=== PATIENT | male | born 1945 | race Caucasian/White ===

== ENCOUNTER 2018-10-21 16:54 | Inpatient (IN) ==
[2018-10-21] MEDS ORDERED: methylPREDNISolone 125 MG/2 ML VIAL IVP ONE (17:16)
[2018-10-21 17:50] LABS: Basophils # 0.1 K/mcL (0.0-0.2); Basophils % 0.3 %; Eosinophils % 0.1 %; Hemoglobin 16.7 g/dL (12.9-16.9); Lymphocytes # 1.5 K/mcL (0.6-4.6); Lymphocytes % 10.3 %; Mean Corpuscular HGB Conc 32.1 g/dL (31.6-35.5); Mean Corpuscular Hemoglobin 29.2 pg (28.0-33.3); Mean Corpuscular Volume 91.1 fL (83.0-100.0); Monocytes # 0.5 K/mcL (0.0-1.3); Monocytes % 3.7 %; Neutrophils # 12.2 K/mcL (1.6-8.9); Platelet Count 148 K/mcL (140-400); Red Blood Count 5.71 M/mcL (4.19-5.50); Red Cell Distribution Width 16.1 % (11.5-14.5); Segmented Neutrophils % 84.6 %; White Blood Count 14.4 K/mcL (4.3-11.1)
[2018-10-21 18:04] LABS: Activated Partial Thrombo Time 45.1 Seconds (26.0-36.0); INR 2.9; Prothrombin Time 32.9 Seconds (9.4-12.1)
[2018-10-21 18:13] LABS: BUN/Creatinine Ratio 28 (6-26); Blood Urea Nitrogen 31 mg/dL (8-23); Calcium 9.8 mg/dL (8.6-10.3); Carbon Dioxide 28 mEq/L (23-29); Chloride 103 mEq/L (98-107); Glucose 118 mg/dL (70-105); Osmolality,Calculated 300 (280-300); Potassium 4.3 mEq/L (3.5-5.1); Sodium 141 mEq/L (136-145); eGFR For African Americans > 60 (> 60); eGFR For Non-African Americans > 60 (> 60)
[2018-10-21] MEDS ORDERED: *HR* Phytonadione 5 MG TABLET PO ONE (18:33)
[2018-10-21] MEDS ORDERED: Naloxone 0.4 MG/ML INJ IVP PRN (21:05)
[2018-10-21] MEDS ORDERED: Ondansetron 4 MG/2 ML VIAL IVP PRN (21:05)
[2018-10-21] MEDS ORDERED: Acetaminophen 325 MG TABLET PO PRN (21:05)
[2018-10-21] MEDS: 0.9 % Sodium Chloride 1,000 ML IVC SCH (22:56)
[2018-10-22 05:11] LABS: Basophils % 0.1 %; Hematocrit 50.1 % (37.5-50.1); Hemoglobin 16.2 g/dL (12.9-16.9); Immature Granulocytes % 0.9 % (0-4); Lymphocytes # 1.8 K/mcL (0.6-4.6); Lymphocytes % 13.1 %; Mean Corpuscular HGB Conc 32.3 g/dL (31.6-35.5); Mean Corpuscular Hemoglobin 29.8 pg (28.0-33.3); Mean Corpuscular Volume 92.1 fL (83.0-100.0); Monocytes # 0.1 K/mcL (0.0-1.3); Monocytes % 0.6 %; Neutrophils # 11.7 K/mcL (1.6-8.9); Platelet Count 122 K/mcL (140-400); Red Blood Count 5.44 M/mcL (4.19-5.50); Red Cell Distribution Width 15.5 % (11.5-14.5); Segmented Neutrophils % 85.3 %; White Blood Count 13.7 K/mcL (4.3-11.1)
[2018-10-22 05:25] LABS: INR 2.2; Prothrombin Time 25.4 Seconds (9.4-12.1)
[2018-10-22 05:26] LABS: Alanine Aminotransferase 28 Units/L (7-52); Albumin 4.1 g/dL (3.5-5.7); Albumin/Globulin Ratio 2.1 (1.1-2.2); Alkaline Phosphatase 41 Units/L (34-104); Aspartate Amino Transferase 18 Units/L (13-39); BUN/Creatinine Ratio 36 (6-26); Bilirubin,Total 1.1 mg/dL (0.3-1.0); Blood Urea Nitrogen 31 mg/dL (8-23); Calcium 8.7 mg/dL (8.6-10.3); Carbon Dioxide 19 mEq/L (23-29); Chloride 107 mEq/L (98-107); Chol/HDL Ratio 2.5 (0-4.9); Cholesterol 200 mg/dL (< 200); Glucose 141 mg/dL (70-105); HDL Cholesterol 79 mg/dL (40-59); LDL Cholesterol,Calculated 107 mg/dL (0-99); Magnesium 2.1 mg/dL (1.6-2.6); Osmolality,Calculated 291 (280-300); Phosphorous 3.9 mg/dL (2.7-4.5); Potassium 3.9 mEq/L (3.5-5.1); Sodium 136 mEq/L (136-145); Total Protein 6.1 g/dL (6.4-8.9); Triglycerides 72 mg/dL (< 150); eGFR For African Americans > 60 (> 60); eGFR For Non-African Americans > 60 (> 60)
[2018-10-22] MEDS ORDERED: Ipratropium/Albuterol Neb 3 ML IH PRN ×2 (06:54→17:19)
[2018-10-22] MEDS: 0.9 % Sodium Chloride 1,000 ML IVC SCH (07:10)
[2018-10-22] MEDS ORDERED: *HR* Propofol 200 MG/20 ML VIAL IVP ONE ×2 (11:41→13:07)
[2018-10-22] MEDS ORDERED: *HR* Midazolam HCl 2 MG/2 ML VIAL ONE (11:41)
[2018-10-22] MEDS ORDERED: *HR* FentaNYL (PF) 100 MCG/2 ML VIAL ONE ×2 (11:41→15:54)
[2018-10-22] MEDS ORDERED: Dexamethasone 4 MG/ML VIAL ONE (11:44)
[2018-10-22] MEDS ORDERED: *HR* Succinylcholine 200 MG/10 ML VIAL IVP ONE (11:44)
[2018-10-22] MEDS ORDERED: Ondansetron 4 MG/2 ML VIAL ONE (11:44)
[2018-10-22] MEDS ORDERED: Lidocaine -MPF 4% 5 ML AMPUL ONE (11:44)
[2018-10-22] MEDS ORDERED: Lidocaine -MPF 2% 2 ML VIAL ONE (11:44)
[2018-10-22] MEDS ORDERED: Lidocaine/EPI 1:100k 1% 20 ML VIAL ONE (11:51)
[2018-10-22] MEDS ORDERED: *HR* EPINEPHrine 30 MG/30 ML MDV ONE (11:51)
[2018-10-22] MEDS ORDERED: Water for inj. (sterile) 10 ML ONE (11:52)
[2018-10-22] MEDS ORDERED: CeFAZolin Syr 2,000MG/20 ML 2,000 MG/20 ML SYRINGE IVPB ONE (12:11)
[2018-10-22] MEDS ORDERED: Lidocaine OINT 35.44 GM TUBE TP ONE (12:36)
[2018-10-22] MEDS ORDERED: *HR* PHENYLEPHRINE 1,000 MCG/10 ML SYRINGE IVP ONE ×2 (13:15→13:39)
[2018-10-22] MEDS ORDERED: Lacri-Lube 3.5 GM TUBE ONE (14:34)
[2018-10-22] MEDS ORDERED: *HR* HYDROmorphone (PF) 1 MG/ML SYRINGE IVP PRN (14:53)
[2018-10-22] MEDS ORDERED: *HR* FentaNYL (PF) 100 MCG/2 ML VIAL IVP ONE (15:51)
[2018-10-22] MEDS ORDERED: Naloxone 0.4 MG/ML INJ IVP PRN (17:14)
[2018-10-22] MEDS: *HR* FentaNYL (PF) 100 MCG/2 ML VIAL IVP PRN (21:35)
[2018-10-22] MEDS ORDERED: Budesonide/Formoterol 160/4.5 1 PUFF INH IH SCH (22:00)
[2018-10-23 05:13] LABS: Hematocrit 48.7 % (37.5-50.1); Hemoglobin 15.9 g/dL (12.9-16.9); Mean Corpuscular HGB Conc 32.6 g/dL (31.6-35.5); Mean Corpuscular Hemoglobin 29.4 pg (28.0-33.3); Mean Corpuscular Volume 90.2 fL (83.0-100.0); Mean Platelet Volume 10.6 fL (9.4-12.4); Platelet Count 115 K/mcL (140-400); Red Cell Distribution Width 15.6 % (11.5-14.5)
[2018-10-23 05:14] LABS: White Blood Count 24.7 K/mcL (4.3-11.1)
[2018-10-23 05:19] LABS: INR 1.8; Prothrombin Time 20.8 Seconds (9.4-12.1)
[2018-10-23 05:30] LABS: BUN/Creatinine Ratio 32 (6-26); Blood Urea Nitrogen 24 mg/dL (8-23); Calcium 8.8 mg/dL (8.6-10.3); Carbon Dioxide 22 mEq/L (23-29); Chloride 106 mEq/L (98-107); Glucose 129 mg/dL (70-105); Osmolality,Calculated 290 (280-300); Potassium 4.1 mEq/L (3.5-5.1); Sodium 137 mEq/L (136-145); eGFR For African Americans > 60 (> 60); eGFR For Non-African Americans > 60 (> 60)
[2018-10-23] MEDS: *HR* FentaNYL (PF) 100 MCG/2 ML VIAL IVP PRN ×2 (07:09→15:52)
[2018-10-23] MEDS ORDERED: *HR* Heparin 5,000 UNIT/ML VIAL IVP PRN ×6 (09:11→09:33)
[2018-10-23] MEDS ORDERED: *HR* Heparin 5,000 UNIT/ML VIAL IVP ONE ×3 (09:11→09:33)
[2018-10-23] MEDS ORDERED: Heparin 25,000 UNIT/250 ML D5W 25,000 UNIT/250 ML IV.SOLN IVC SCH ×3 (09:15→09:33)
[2018-10-23] MEDS ORDERED: Naloxone 0.4 MG/ML INJ IVP PRN (09:33)
[2018-10-23] MEDS ORDERED: MethylPREDNISolone 40 MG/ML VIAL IM SCH (09:33)
[2018-10-23] MEDS ORDERED: Ipratropium/Albuterol Neb 3 ML IH PRN (09:33)
[2018-10-23] MEDS ORDERED: MethylPREDNISolone 40 MG/ML VIAL IVP SCH (10:00)
[2018-10-23] MEDS: MethylPREDNISolone 40 MG/ML VIAL IVP SCH (10:13)
[2018-10-23] MEDS: Budesonide/Formoterol 160/4.5 1 PUFF INH IH SCH ×2 (10:57→22:00)
[2018-10-23] MEDS ORDERED: Isovue-370 500 ML BOTTLE IVP ONE (18:15)
[2018-10-23] MEDS ORDERED: Lidocaine/EPI 1:100k 1% 20 ML VIAL ONE (21:34)
[2018-10-23] MEDS ORDERED: *HR* Succinylcholine 200 MG/10 ML VIAL IVP ONE (21:38)
[2018-10-23] MEDS ORDERED: Lidocaine -MPF 4% 5 ML AMPUL ONE (21:38)
[2018-10-23] MEDS ORDERED: *HR* FentaNYL (PF) 100 MCG/2 ML VIAL ONE (21:38)
[2018-10-23] MEDS ORDERED: Lidocaine -MPF 2% 2 ML VIAL ONE (21:38)
[2018-10-23] MEDS ORDERED: Dexamethasone 4 MG/ML VIAL ONE (21:39)
[2018-10-23] MEDS ORDERED: *HR* Propofol 200 MG/20 ML VIAL IVP ONE (21:39)
[2018-10-23] MEDS ORDERED: Ondansetron 4 MG/2 ML VIAL ONE (21:39)
[2018-10-23] MEDS ORDERED: Famotidine 20 MG/2 ML VIAL ONE (21:49)
[2018-10-23] MEDS ORDERED: Acetaminophen IV 1,000 MG/100 ML INFUS..BTL ONE (21:49)
[2018-10-23] MEDS ORDERED: *HR* Midazolam HCl 2 MG/2 ML VIAL ONE (22:26)
[2018-10-23] MEDS ORDERED: *HR* PHENYLEPHRINE 1,000 MCG/10 ML SYRINGE IVP ONE (23:08)
[2018-10-24] MEDS ORDERED: ceFAZolin 2,000 MG in Water for inj. (sterile) 20 ML IVP ONE (00:10)
[2018-10-24] MEDS ORDERED: ceFAZolin 2,000 MG in 0.9 % Sodium Chloride 100 ML IVPB ONE (01:00)
[2018-10-24 01:07] LABS: Hematocrit 43.9 % (37.5-50.1)
[2018-10-24 01:16] LABS: INR 1.8; Prothrombin Time 20.5 Seconds (9.4-12.1)
[2018-10-24 01:23] LABS: Hemoglobin 14.2 g/dL (12.9-16.9)
[2018-10-24 07:25] LABS: Basophils % 0.1 %; Hemoglobin 14.9 g/dL (12.9-16.9); Immature Granulocytes % 0.6 % (0-4); Lymphocytes # 1.7 K/mcL (0.6-4.6); Lymphocytes % 10.8 %; Mean Corpuscular HGB Conc 32.4 g/dL (31.6-35.5); Mean Corpuscular Hemoglobin 29.3 pg (28.0-33.3); Mean Corpuscular Volume 90.4 fL (83.0-100.0); Mean Platelet Volume 9.9 fL (9.4-12.4); Monocytes # 0.4 K/mcL (0.0-1.3); Monocytes % 2.4 %; Neutrophils # 13.8 K/mcL (1.6-8.9); Platelet Count 117 K/mcL (140-400); Red Blood Count 5.09 M/mcL (4.19-5.50); Red Cell Distribution Width 15.7 % (11.5-14.5); Segmented Neutrophils % 86.1 %; White Blood Count 16.1 K/mcL (4.3-11.1)
[2018-10-24 07:41] LABS: BUN/Creatinine Ratio 33 (6-26); Blood Urea Nitrogen 26 mg/dL (8-23); Calcium 8.3 mg/dL (8.6-10.3); Carbon Dioxide 25 mEq/L (23-29); Chloride 104 mEq/L (98-107); Glucose 125 mg/dL (70-105); Osmolality,Calculated 288 (280-300); Potassium 4.3 mEq/L (3.5-5.1); Sodium 136 mEq/L (136-145); eGFR For African Americans > 60 (> 60); eGFR For Non-African Americans > 60 (> 60)
[2018-10-24] MEDS: MethylPREDNISolone 40 MG/ML VIAL IVP SCH (09:48)
[2018-10-24] MEDS: Budesonide/Formoterol 160/4.5 1 PUFF INH IH SCH ×2 (09:57→21:17)
[2018-10-25 04:45] LABS: Basophils % 0.1 %; Eosinophils % 0.1 %; Hematocrit 45.3 % (37.5-50.1); Hemoglobin 14.8 g/dL (12.9-16.9); Immature Granulocytes % 0.7 % (0-4); Lymphocytes # 1.7 K/mcL (0.6-4.6); Lymphocytes % 12.1 %; Mean Corpuscular HGB Conc 32.7 g/dL (31.6-35.5); Mean Corpuscular Hemoglobin 30.1 pg (28.0-33.3); Mean Corpuscular Volume 92.1 fL (83.0-100.0); Mean Platelet Volume 10.6 fL (9.4-12.4); Monocytes % 6.7 %; Neutrophils # 11.4 K/mcL (1.6-8.9); Platelet Count 123 K/mcL (140-400); Red Blood Count 4.92 M/mcL (4.19-5.50); Red Cell Distribution Width 15.4 % (11.5-14.5); Segmented Neutrophils % 80.3 %; White Blood Count 14.2 K/mcL (4.3-11.1)
[2018-10-25 05:03] LABS: BUN/Creatinine Ratio 43 (6-26); Blood Urea Nitrogen 33 mg/dL (8-23); Calcium 8.9 mg/dL (8.6-10.3); Carbon Dioxide 25 mEq/L (23-29); Chloride 105 mEq/L (98-107); Glucose 110 mg/dL (70-105); Osmolality,Calculated 294 (280-300); Potassium 4.1 mEq/L (3.5-5.1); Sodium 138 mEq/L (136-145); eGFR For African Americans > 60 (> 60); eGFR For Non-African Americans > 60 (> 60)
[2018-10-25] MEDS: Budesonide/Formoterol 160/4.5 1 PUFF INH IH SCH ×2 (07:56→21:22)
[2018-10-25] MEDS: *HR* FentaNYL (PF) 100 MCG/2 ML VIAL IVP PRN ×2 (08:09→19:11)
[2018-10-25] MEDS: predniSONE 10 MG TABLET PO SCH (08:10)
[2018-10-25] MEDS: Piperacillin/Tazobactam 3.375 GM in 0.9 % Sodium Chloride Mini Bag 100 ML IVPB SCH ×2 (16:41→20:38)
[2018-10-25] MEDS: MethylPREDNISolone 40 MG/ML VIAL IVP SCH ×2 (16:42→23:06)
[2018-10-26] MEDS: Piperacillin/Tazobactam 3.375 GM in 0.9 % Sodium Chloride Mini Bag 100 ML IVPB SCH ×3 (04:01→22:45)
[2018-10-26] MEDS: Budesonide/Formoterol 160/4.5 1 PUFF INH IH SCH ×2 (07:55→20:09)
[2018-10-26 08:35] LABS: Basophils % 0.2 %; Hematocrit 45.6 % (37.5-50.1); Hemoglobin 14.9 g/dL (12.9-16.9); Immature Granulocytes % 0.7 % (0-4); Lymphocytes # 1.7 K/mcL (0.6-4.6); Lymphocytes % 15.3 %; Mean Corpuscular HGB Conc 32.7 g/dL (31.6-35.5); Mean Corpuscular Hemoglobin 29.6 pg (28.0-33.3); Mean Corpuscular Volume 90.5 fL (83.0-100.0); Mean Platelet Volume 10.4 fL (9.4-12.4); Monocytes # 0.4 K/mcL (0.0-1.3); Monocytes % 3.7 %; Neutrophils # 8.8 K/mcL (1.6-8.9); Platelet Count 114 K/mcL (140-400); Red Blood Count 5.04 M/mcL (4.19-5.50); Red Cell Distribution Width 15.5 % (11.5-14.5); Segmented Neutrophils % 80.1 %
[2018-10-26 08:54] LABS: BUN/Creatinine Ratio 39 (6-26); Blood Urea Nitrogen 27 mg/dL (8-23); Calcium 8.8 mg/dL (8.6-10.3); Carbon Dioxide 23 mEq/L (23-29); Chloride 103 mEq/L (98-107); Glucose 136 mg/dL (70-105); Osmolality,Calculated 289 (280-300); Potassium 4.4 mEq/L (3.5-5.1); Sodium 136 mEq/L (136-145); eGFR For African Americans > 60 (> 60); eGFR For Non-African Americans > 60 (> 60)
[2018-10-26] MEDS: predniSONE 10 MG TABLET PO SCH (09:04)
[2018-10-26] MEDS: MethylPREDNISolone 40 MG/ML VIAL IVP SCH ×3 (09:18→22:44)
[2018-10-26] MEDS ORDERED: Ipratropium/Albuterol Neb 3 ML ONE (09:42)
[2018-10-26] MEDS: Ipratropium/Albuterol Neb 3 ML IH SCH ×4 (09:45→20:09)
[2018-10-26] MEDS: *HR* FentaNYL (PF) 100 MCG/2 ML VIAL IVP PRN (17:01)
[2018-10-27] MEDS: Ipratropium/Albuterol Neb 3 ML IH SCH ×6 (00:05→20:18)
[2018-10-27] MEDS: *HR* FentaNYL (PF) 100 MCG/2 ML VIAL IVP PRN (03:18)
[2018-10-27 05:03] LABS: Hematocrit 45.4 % (37.5-50.1); Mean Corpuscular Hemoglobin 29.4 pg (28.0-33.3); Mean Platelet Volume 9.7 fL (9.4-12.4); Platelet Count 115 K/mcL (140-400); Red Cell Distribution Width 15.5 % (11.5-14.5); White Blood Count 13.4 K/mcL (4.3-11.1)
[2018-10-27 05:40] LABS: BUN/Creatinine Ratio 34 (6-26); Blood Urea Nitrogen 30 mg/dL (8-23); Calcium 9.7 mg/dL (8.6-10.3); Carbon Dioxide 26 mEq/L (23-29); Chloride 101 mEq/L (98-107); Glucose 170 mg/dL (70-105); Osmolality,Calculated 292 (280-300); Potassium 4.7 mEq/L (3.5-5.1); Sodium 136 mEq/L (136-145); eGFR For African Americans > 60 (> 60); eGFR For Non-African Americans > 60 (> 60)
[2018-10-27] MEDS: Piperacillin/Tazobactam 3.375 GM in 0.9 % Sodium Chloride Mini Bag 100 ML IVPB SCH ×3 (05:55→20:30)
[2018-10-27] MEDS: Budesonide/Formoterol 160/4.5 1 PUFF INH IH SCH ×2 (07:32→20:19)
[2018-10-27] MEDS: MethylPREDNISolone 40 MG/ML VIAL IVP SCH ×2 (07:53→15:49)
[2018-10-27] MEDS ORDERED: GuaiFENesin/Codeine Oral Soln 5 ML UDC PO PRN (12:02)
[2018-10-27] MEDS ORDERED: *HR* FentaNYL (PF) 100 MCG/2 ML VIAL IVP PRN (18:49)
[2018-10-27] MEDS ORDERED: Naloxone 0.4 MG/ML INJ IVP PRN (18:49)
[2018-10-28] MEDS: Budesonide/Formoterol 160/4.5 1 PUFF INH IH SCH ×3 (00:19→22:09)
[2018-10-28] MEDS: Ipratropium/Albuterol Neb 3 ML IH SCH ×3 (00:20→07:55)
[2018-10-28] MEDS: MethylPREDNISolone 40 MG/ML VIAL IVP SCH ×3 (00:52→15:43)
[2018-10-28] MEDS: Piperacillin/Tazobactam 3.375 GM in 0.9 % Sodium Chloride Mini Bag 100 ML IVPB SCH ×3 (05:26→20:26)
[2018-10-28] MEDS ORDERED: Ipratropium/Albuterol Neb 3 ML IH PRN (10:40)
[2018-10-28] MEDS: GuaiFENesin/Codeine Oral Soln 5 ML UDC PO PRN (20:26)
[2018-10-29 04:56] LABS: Basophils % 0.2 %; Hematocrit 44.6 % (37.5-50.1); Hemoglobin 14.7 g/dL (12.9-16.9); Immature Granulocytes % 1.4 % (0-4); Lymphocytes # 2.4 K/mcL (0.6-4.6); Lymphocytes % 14.8 %; Mean Corpuscular Hemoglobin 29.9 pg (28.0-33.3); Mean Corpuscular Volume 90.8 fL (83.0-100.0); Mean Platelet Volume 9.7 fL (9.4-12.4); Monocytes # 0.5 K/mcL (0.0-1.3); Monocytes % 3.1 %; Neutrophils # 12.8 K/mcL (1.6-8.9); Platelet Count 103 K/mcL (140-400); Red Blood Count 4.91 M/mcL (4.19-5.50); Red Cell Distribution Width 15.9 % (11.5-14.5); Segmented Neutrophils % 80.5 %; White Blood Count 15.9 K/mcL (4.3-11.1)
[2018-10-29 05:10] LABS: BUN/Creatinine Ratio 45 (6-26); Blood Urea Nitrogen 37 mg/dL (8-23); Calcium 8.7 mg/dL (8.6-10.3); Carbon Dioxide 23 mEq/L (23-29); Chloride 105 mEq/L (98-107); Glucose 148 mg/dL (70-105); Osmolality,Calculated 293 (280-300); Potassium 4.3 mEq/L (3.5-5.1); Sodium 136 mEq/L (136-145); eGFR For African Americans > 60 (> 60); eGFR For Non-African Americans > 60 (> 60)
[2018-10-29] MEDS: Piperacillin/Tazobactam 3.375 GM in 0.9 % Sodium Chloride Mini Bag 100 ML IVPB SCH ×3 (06:00→22:33)
[2018-10-29] MEDS: MethylPREDNISolone 40 MG/ML VIAL IVP SCH ×4 (07:06→22:33)
[2018-10-29] MEDS: Budesonide/Formoterol 160/4.5 1 PUFF INH IH SCH ×2 (09:46→22:11)
[2018-10-29] MEDS: GuaiFENesin/Codeine Oral Soln 5 ML UDC PO PRN (22:33)
[2018-10-30 05:57] LABS: Red Cell Distribution Width 15.9 % (11.5-14.5)
[2018-10-30 05:59] LABS: Basophils % 0.3 %; Hematocrit 44.1 % (37.5-50.1); Hemoglobin 14.9 g/dL (12.9-16.9); Immature Granulocytes % 2.2 % (0-4); Immature Platelets 3.6 % (1.1-6.1); Lymphocytes # 2.7 K/mcL (0.6-4.6); Lymphocytes % 18.2 %; Mean Corpuscular HGB Conc 33.8 g/dL (31.6-35.5); Mean Corpuscular Volume 88.7 fL (83.0-100.0); Mean Platelet Volume 9.8 fL (9.4-12.4); Monocytes # 0.4 K/mcL (0.0-1.3); Monocytes % 2.6 %; Neutrophils # 11.5 K/mcL (1.6-8.9); Red Blood Count 4.97 M/mcL (4.19-5.50); Segmented Neutrophils % 76.7 %
[2018-10-30 06:07] LABS: Basophils # 0.1 K/mcL (0.0-0.2); Platelet Count 93 K/mcL (140-400)
[2018-10-30] MEDS: Budesonide/Formoterol 160/4.5 1 PUFF INH IH SCH ×2 (07:47→20:24)
[2018-10-30] MEDS ORDERED: *HR* Heparin 5,000 UNIT/ML VIAL IVP PRN ×2 (09:39)
[2018-10-30] MEDS ORDERED: Heparin 25,000 UNIT/250 ML D5W 25,000 UNIT/250 ML IV.SOLN IVC SCH (09:45)
[2018-10-30] MEDS ORDERED: Piperacillin/Tazobactam 3.375 GM in 0.9 % Sodium Chloride Mini Bag 100 ML IVPB SCH (10:00)
[2018-10-30] MEDS: MethylPREDNISolone 40 MG/ML VIAL IVP SCH ×3 (10:12→23:38)
[2018-10-30 10:17] LABS: INR 1.1
[2018-10-30 10:18] LABS: Heparin anti-factor XA UFH 0.06 IU/mL (0.30-0.70)
[2018-10-30 10:19] LABS: Hematocrit 45.5 % (37.5-50.1); Hemoglobin 14.9 g/dL (12.9-16.9); Mean Corpuscular HGB Conc 32.7 g/dL (31.6-35.5); Mean Corpuscular Hemoglobin 29.8 pg (28.0-33.3); Red Cell Distribution Width 15.7 % (11.5-14.5); White Blood Count 14.4 K/mcL (4.3-11.1)
[2018-10-30] MEDS: Cefdinir 300 MG CAPSULE PO SCH ×2 (10:31→19:58)
[2018-10-30] MEDS ORDERED: *HR* Warfarin 5 MG TABLET PO ONE (18:00)
[2018-10-30] MEDS ORDERED: Warfarin perPT PO PRN (18:00)
[2018-10-31 05:50] LABS: Hemoglobin 15.5 g/dL (12.9-16.9); Red Cell Distribution Width 15.8 % (11.5-14.5)
[2018-10-31 05:52] LABS: Basophils % 0.2 %; Immature Granulocytes % 2.5 % (0-4); Immature Platelets 5.1 % (1.1-6.1); Lymphocytes # 3.1 K/mcL (0.6-4.6); Lymphocytes % 18.3 %; Mean Corpuscular Hemoglobin 29.8 pg (28.0-33.3); Mean Corpuscular Volume 90.4 fL (83.0-100.0); Mean Platelet Volume 10.1 fL (9.4-12.4); Monocytes # 0.4 K/mcL (0.0-1.3); Monocytes % 2.5 %; Neutrophils # 12.9 K/mcL (1.6-8.9); Platelet Count 85 K/mcL (140-400); Segmented Neutrophils % 76.5 %; White Blood Count 16.9 K/mcL (4.3-11.1)
[2018-10-31 05:59] LABS: Prothrombin Time 11.4 Seconds (9.4-12.1)
[2018-10-31] MEDS: Budesonide/Formoterol 160/4.5 1 PUFF INH IH SCH (07:41)
[2018-10-31] MEDS ORDERED: Cholecalciferol (D-3) 1,000 UNIT (25MCG) TABLET PO SCH (09:00)
[2018-10-31] MEDS ORDERED: Aspirin 81 MG TAB.CHEW PO SCH (09:00)
[2018-10-31] MEDS ORDERED: (Roflumilast [Daliresp] 250 MCG) PO SCH (09:00)
[2018-10-31] MEDS: MethylPREDNISolone 40 MG/ML VIAL IVP SCH (09:12)
[2018-10-31] MEDS: Cefdinir 300 MG CAPSULE PO SCH (09:12)
[2018-10-31 11:21] VITALS: BP 151/91
[2018-10-31] MEDS ORDERED: *HR* Warfarin 5 MG TABLET PO ONE (18:00)
== END 2018-10-31 13:31 | disposition home health service (06) | DRG 11 ==
LOC: 3ANU 16:54 → EMEROOARM 16:54 → SUATTDRO 19:49 → 3ANU 20:33 → SUATTDRO 10-22 14:26 → ICNU 10-22 15:46 → 2NENU 10-23 09:15 → ICNU 10-24 01:26 → 2NNU 10-27 10:56
PROVIDERS: ADMIT Internal Medicine; ATTEND Internal Medicine

== ENCOUNTER 2018-11-02 15:00 | Inpatient (IN) ==
[2018-11-02] MEDS ORDERED: methylPREDNISolone 125 MG/2 ML VIAL IVP ONE (15:25)
--- NOTE | 2018-11-02 15:28 | Emergency Department Note ---
Disposition Clinical Impression: Healthcare-associated pneumonia, Tracheitis Disposition: Admitted As Inpatient Condition: Fair Time of Disposition: 20:58 Weakness HPI - General Chief complaint: ED Weakness Stated complaint: weakness Time Seen by Provider: 11/02/18 15:07 Source: patient, family Limitations: no limitations Nursing Notes Reviewed: Yes Vital Signs Reviewed: Yes - History of Present Illness HPI Narrative: 73-year-old male presents from home with bedside for evaluation of weakness and dizziness. Onset this morning. He was too weak to stand from sitting. This is new to him. Dizziness is transient. He also has mild right-handed numbness that has since resolved. He also has left lower quadrant abdominal pain. 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 He is 11 days status post trach. Also history of CLL, biliary colic. He is on chronic prednisone for the last 10 years. 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 ROS: Positive: Weakness, dizziness Negative: Fever, chills, nausea, vomiting, chest pains, palpitations, dyspnea, diaphoresis Pain Scale: 4 - Related Data Home Medications Medication Instructions Recorded Confirmed Albuterol Sulfate [Proventil 2 puff IH Q4H PRN 08/13/15 11/02/18 Inhaler] Cholecalciferol (Vitamin D3) 1,000 unit PO DAILY #0 08/13/15 11/02/18 [Vitamin D3] Levothyroxine [Synthroid] 75 mcg PO QAM 08/14/15 11/02/18 Aspirin 81 mg PO DAILY 02/21/16 11/02/18 Budesonide/Formoterol 160/4.5 2 puff IH BIDR 02/21/16 11/02/18 [Symbicort 160/4.5] Calcium Carbonate/Vitamin D3 1 each PO DAILY 02/21/16 11/02/18 [Calcium 500-Vit D3 200 Caplet] Rosuvastatin [Crestor] 40 mg PO HS 02/21/16 11/02/18 Tramadol HCl [Ultram] 50 mg PO TID PRN 02/21/16 11/02/18 predniSONE [PredniSONE] 10 mg PO DAILY 02/21/16 11/02/18 Erythromycin OPTH Oint 1 appl BOTH EYES DAILY PRN 10/22/18 11/02/18 Montelukast [Singulair] 10 mg PO DAILY 10/22/18 11/02/18 Roflumilast [Daliresp] 250 mcg PO DAILY 10/22/18 11/02/18 Warfarin [Coumadin] 4 mg PO QPM 10/22/18 11/02/18 Previous Rx's Medication Instructions Recorded Omeprazole 40 mg PO DAILY #30 tablet. 08/16/15 Cefdinir [Omnicef] 300 mg PO BID #14 capsule 10/31/18 Allergies Allergy/AdvReac Type Severity Reaction Status Date / Time No Known Allergies Allergy Verified 10/22/18 08:28 All systems ED: reviewed and negative except as stated. Review of Systems: As Per HPI Past Medical History - Past Medical History Medical history: Reports: COPD, GERD, hyperlipidemia, pulmonary embolus, thyroid disease, other Surgical history: Reports: pacemaker/AICD Psychiatric history: Reports: no psych history - Social History Smoking Status: Former smoker Smokeless Tobacco Status: No Alcohol use: Reports: none Drug use: Reports: none Physical Exam Vital Signs Reviewed General: Patient is alert, oriented, and in no acute distress. Head: atraumatic, normocephalic Eye: normal appearance, PERRL, EOMI, no scleral icterus, no conjunctival injection ENT: mucous membranes moist, normal external ear exam. Trach is in place, clean, no bleeding, strengthening skin is clean without erythema or purulence. Neck: normal inspection, trachea midline, full ROM Chest: normal inspection, symmetric chest rise Respiratory: Good respiratory effort. Bilateral breath sounds are clear without wheezing, crackles, or rhonchi. Cardiovascular: Regular rate and rhythm. No clicks, rubs, gallops, or murmors. Normal heart sounds. Bilateral radial pulses 2/4 equal. No pedal edema. Abdomen: Bowel sounds present normoactive. Abdomen is soft, nondistended. Mild left lower quadrant abdominal tenderness. No guarding or rebound. No org anomegaly noted. Musculoskeletal: Spontaneously moving all extremities. Skin: warm, dry, intact. Neuro: GCS 15. She is internal questions briskly a properly by writing on a dry erase board. No facial asymmetry or slurring of speech. Bilateral upper and lower extremity strength 5/5 and equal. Sensation light touch intact and equal bilateral upper and lower extremity is. Negative. Nose. Negative [id number]. Psych: Patient's affect is appropriate for situation. - General Limitations: no limitations General appearance: alert Course Course Narrative: EKG dated 11/02/2018 at 15:07 interpreted as sinus tachycardia with a rate of 110. AK 152, QRS 103, QTC 446. Normal axis. Nonspecific ST-T changes. Compared to previous dated 10/21/2018 showing no acute ischemic changes or comparison. On reevaluation, patient has some scattered crackles in his lungs. He has a forceful cough and was able to cough up ulnar secretions that I suctioned out of his trach tube. Re-auscultation demonstrated clearance of these crackles. Patient prefers to cough his secretions versus respiratory performing suction. Clinical concern for possible tracheitis given the copious fan secretions from his tracheostomy. CT head is unremarkable. CT abdomen and pelvis shows scattered lower lobe opacities clinically concerning for pneumonia. Will provide her catabolic seconds healthcare associated pneumonia. Chest x-ray is unremarkable I discussed the above with the patient and bedside. They are agreeable to admission for treatment of healthcare associated pneumonia with likely tracheitis. I discussed the above with the admitting hospitalist, Dr. Busby. She agrees to accept the patient for continued evaluation monitoring. Abdomen/Pelvis CT 11/02/18 15:22 IMPRESSION: 1. No acute finding in the abdomen or pelvis. 2. Scattered airspace opacities in the visualized lower lobes. Recommend correlation with any pulmonary symptoms. Follow-up imaging of the chest may be considered if indicated. D/ / Uli Dawson MD / Uli Dawson MD Interpreting Provider: Uli Dawson MD Head CT 11/02/18 15:22 IMPRESSION: No acute intracranial abnormality. D/ / Kevin Trejo MD / Kevin Trejo MD Interpreting Provider: Kevin Trejo MD Chest X-Ray 11/02/18 15:23 IMPRESSION: Stable appearance of the chest with no acute finding. D/ / Uli Dawson MD / Uli Dawson MD Interpreting Provider: Uli Dawson MD Vital Signs Temperature 98.9 F 11/02/18 15:03 Pulse Rate 92 11/02/18 15:03 Respiratory Rate 31 11/02/18 15:03 Blood Pressure 105/76 11/02/18 15:03 O2 Sat by Pulse Oximetry 97 11/02/18 15:03 Temperature 98.9 F 11/02/18 15:03 Pulse Rate 78 11/02/18 19:45 Respiratory Rate 20 11/02/18 19:45 Blood Pressure 110/68 11/02/18 19:45 O2 Sat by Pulse Oximetry 96 11/02/18 19:45 Oxygen Delivery Oxygen Delivery Room Air Weakness - Lab Data Result diagrams: 11/02/18 15:20 11/02/18 15:20 Lab Results 11/02/18 11/02/18 11/02/18 Range/Units 15:20 15:20 15:20 WBC 20.5 H (4.3-11.1) K/mcL RBC 5.23 (4.19-5.50) M/mcL Hgb 15.6 (12.9-16.9) g/dL Hct 47.1 (37.5-50.1) % MCV 90.1 (83.0-100.0) fL MCH 29.8 (28.0-33.3) pg MCHC 33.1 (31.6-35.5) g/dL RDW 16.1 H (11.5-14.5) % Plt Count 113 L (140-400) K/mcL MPV 10.6 (9.4-12.4) fL Immature Gran % 3.6 (0-4) % Seg Neutrophils % 82.2 % Lymphocytes % 10.2 % Monocytes % 3.5 % Eosinophils % 0.2 % Basophils % 0.3 % Neutrophils # 16.8 H (1.6-8.9) K/mcL Lymphocytes # 2.1 (0.6-4.6) K/mcL Monocytes # 0.7 (0.0-1.3) K/mcL Eosinophils # 0.1 (0.0-0.6) K/mcL Basophils # 0.1 (0.0-0.2) K/mcL PT 14.9 H (9.4-12.1) Seconds INR 1.3 Sodium 134 L (136-145) mEq/L Potassium 3.9 (3.5-5.1) mEq/L Chloride 99 (98-107) mEq/L Carbon Dioxide 26 (23-29) mEq/L BUN 39 H (8-23) mg/dL Creatinine 1.00 (0.70-1.30) mg/dL Est GFR ( Amer) > 60 (> 60) Est GFR (Non-Af Amer) > 60 (> 60) BUN/Creatinine Ratio 39 H (6-26) Glucose 130 H (70-105) mg/dL Calculated Osmolality 289 (280-300) Lactic Acid (0.5-2.2) mmol/L Calcium 8.7 (8.6-10.3) mg/dL Phosphorus 2.5 L (2.7-4.5) mg/dL Magnesium 2.3 (1.6-2.6) mg/dL Total Bilirubin 1.7 H (0.3-1.0) mg/dL AST 22 (13-39) Units/L ALT 38 (7-52) Units/L Alkaline Phosphatase 43 (34-104) Units/L Troponin I < 0.03 (< 0.04) ng/mL Serum Total Protein 5.7 L (6.4-8.9) g/dL Albumin 3.7 (3.5-5.7) g/dL Globulin 2.0 L (2.4-3.5) g/dL Albumin/Globulin Ratio 1.9 (1.1-2.2) Procalcitonin (0.00-0.15) ng/mL TSH 1.922 (0.340-5.600) mcIU/mL Urine Color (Yellow) Urine Clarity (Clear) Urine pH (5.0-8.0) pH Units Ur Specific [place] (1.010-1.025) Urine Protein (Neg-Trace) mg/dL Urine Glucose (UA) (Normal) mg/dL Urine Ketones (Negative) mg/dL Urine Blood (Negative) Urine Nitrite (Negative) Urine Bilirubin (Negative) Urine Urobilinogen (Normal) mg/dL Ur Leukocyte Esterase (Negative) Ur Culture Indicated? (NO) 11/02/18 11/02/18 11/02/18 Range/Units 15:20 15:35 18:00 WBC (4.3-11.1) K/mcL RBC (4.19-5.50) M/mcL Hgb (12.9-16.9) g/dL Hct (37.5-50.1) % MCV (83.0-100.0) fL MCH (28.0-33.3) pg MCHC (31.6-35.5) g/dL RDW (11.5-14.5) % Plt Count (140-400) K/mcL MPV (9.4-12.4) fL Immature Gran % (0-4) % Seg Neutrophils % % Lymphocytes % % Monocytes % % Eosinophils % % Basophils % % Neutrophils # (1.6-8.9) K/mcL Lymphocytes # (0.6-4.6) K/mcL Monocytes # (0.0-1.3) K/mcL Eosinophils # (0.0-0.6) K/mcL Basophils # (0.0-0.2) K/mcL PT (9.4-12.1) Seconds INR Sodium (136-145) mEq/L Potassium (3.5-5.1) mEq/L Chloride (98-107) mEq/L Carbon Dioxide (23-29) mEq/L BUN (8-23) mg/dL Creatinine (0.70-1.30) mg/dL Est GFR ( Amer) (> 60) Est GFR (Non-Af Amer) (> 60) BUN/Creatinine Ratio (6-26) Glucose (70-105) mg/dL Calculated Osmolality (280-300) Lactic Acid 1.3 (0.5-2.2) mmol/L Calcium (8.6-10.3) mg/dL Phosphorus (2.7-4.5) mg/dL Magnesium (1.6-2.6) mg/dL Total Bilirubin (0.3-1.0) mg/dL AST (13-39) Units/L ALT (7-52) Units/L Alkaline Phosphatase (34-104) Units/L Troponin I (< 0.04) ng/mL Serum Total Protein (6.4-8.9) g/dL Albumin (3.5-5.7) g/dL Globulin (2.4-3.5) g/dL Albumin/Globulin Ratio (1.1-2.2) Procalcitonin 0.06 (0.00-0.15) ng/mL TSH (0.340-5.600) mcIU/mL Urine Color Dark Yellow (Yellow) Urine Clarity Clear (Clear) Urine pH 6.0 (5.0-8.0) pH Units Ur Specific [place] 1.029 H (1.010-1.025) Urine Protein Trace (Neg-Trace) mg/dL Urine Glucose (UA) Normal (Normal) mg/dL Urine Ketones Negative (Negative) mg/dL Urine Blood Negative (Negative) Urine Nitrite Negative (Negative) Urine Bilirubin Small H (Negative) Urine Urobilinogen 2.0 H (Normal) mg/dL Ur Leukocyte Esterase Negative (Negative) Ur Culture Indicated? NO (NO)
[2018-11-02 15:51] LABS: Basophils # 0.1 K/mcL (0.0-0.2); Basophils % 0.3 %; Eosinophils # 0.1 K/mcL (0.0-0.6); Eosinophils % 0.2 %; Hematocrit 47.1 % (37.5-50.1); Hemoglobin 15.6 g/dL (12.9-16.9); Immature Granulocytes % 3.6 % (0-4); Lymphocytes # 2.1 K/mcL (0.6-4.6); Lymphocytes % 10.2 %; Mean Corpuscular HGB Conc 33.1 g/dL (31.6-35.5); Mean Corpuscular Hemoglobin 29.8 pg (28.0-33.3); Mean Corpuscular Volume 90.1 fL (83.0-100.0); Mean Platelet Volume 10.6 fL (9.4-12.4); Monocytes # 0.7 K/mcL (0.0-1.3); Monocytes % 3.5 %; Neutrophils # 16.8 K/mcL (1.6-8.9); Platelet Count 113 K/mcL (140-400); Red Blood Count 5.23 M/mcL (4.19-5.50); Red Cell Distribution Width 16.1 % (11.5-14.5); Segmented Neutrophils % 82.2 %; White Blood Count 20.5 K/mcL (4.3-11.1)
--- NOTE | 2018-11-02 16:00 | Emergency Department Note ---
Disposition Clinical Impression: Healthcare-associated pneumonia Disposition: Admitted As Inpatient Condition: Serious [facility]errals: [facility]Primary Care Provider[facility] - Forms: ED Satisfaction Letter Time of Disposition: 19:10 General Adult HPI - General Chief complaint: ED Weakness Stated complaint: weakness Time Seen by Provider: 11/02/18 15:07 Source: patient, family Limitations: no limitations Nursing Notes Reviewed: Yes Vital Signs Reviewed: Yes - History of Present Illness Pain Scale: 4 - Related Data Home Medications Medication Instructions Recorded Confirmed Albuterol Sulfate [Proventil 2 puff IH Q4H PRN 08/13/15 11/02/18 Inhaler] Cholecalciferol (Vitamin D3) 1,000 unit PO DAILY #0 08/13/15 11/02/18 [Vitamin D3] Levothyroxine [Synthroid] 75 mcg PO QAM 08/14/15 11/02/18 Aspirin 81 mg PO DAILY 02/21/16 11/02/18 Budesonide/Formoterol 160/4.5 2 puff IH BIDR 02/21/16 11/02/18 [Symbicort 160/4.5] Calcium Carbonate/Vitamin D3 1 each PO DAILY 02/21/16 11/02/18 [Calcium 500-Vit D3 200 Caplet] Rosuvastatin [Crestor] 40 mg PO HS 02/21/16 11/02/18 Tramadol HCl [Ultram] 50 mg PO TID PRN 02/21/16 11/02/18 predniSONE [PredniSONE] 10 mg PO DAILY 02/21/16 11/02/18 Erythromycin OPTH Oint 1 appl BOTH EYES DAILY PRN 10/22/18 11/02/18 Montelukast [Singulair] 10 mg PO DAILY 10/22/18 11/02/18 Roflumilast [Daliresp] 250 mcg PO DAILY 10/22/18 11/02/18 Warfarin [Coumadin] 4 mg PO QPM 10/22/18 11/02/18 Previous Rx's Medication Instructions Recorded Omeprazole 40 mg PO DAILY #30 tablet. 08/16/15 Cefdinir [Omnicef] 300 mg PO BID #14 capsule 10/31/18 Allergies Allergy/AdvReac Type Severity Reaction Status Date / Time No Known Allergies Allergy Verified 10/22/18 08:28 Past Medical History - Past Medical History Medical history: Reports: COPD, GERD, hyperlipidemia, pulmonary embolus, thyroid disease, other Surgical history: Reports: pacemaker/AICD Psychiatric history: Reports: no psych history - Social History Smoking Status: Former smoker Smokeless Tobacco Status: No Alcohol use: Reports: none Drug use: Reports: none Physical Exam - General Limitations: no limitations General appearance: alert Course Vital Signs Temperature 98.9 F 11/02/18 15:03 Pulse Rate 92 11/02/18 15:03 Respiratory Rate 31 11/02/18 15:03 Blood Pressure 105/76 11/02/18 15:03 O2 Sat by Pulse Oximetry 97 11/02/18 15:03 Temperature 98.9 F 11/02/18 15:03 Pulse Rate 86 11/02/18 16:04 Respiratory Rate 26 11/02/18 16:04 Blood Pressure 113/75 11/02/18 18:00 O2 Sat by Pulse Oximetry 96 11/02/18 16:04 Oxygen Delivery Oxygen Delivery Room Air Medical Decision Making - Lab Data Result diagrams: 11/02/18 15:20 11/02/18 15:20 Lab Results 11/02/18 11/02/18 11/02/18 Range/Units 15:20 15:20 15:20 WBC 20.5 H (4.3-11.1) K/mcL RBC 5.23 (4.19-5.50) M/mcL Hgb 15.6 (12.9-16.9) g/dL Hct 47.1 (37.5-50.1) % MCV 90.1 (83.0-100.0) fL MCH 29.8 (28.0-33.3) pg MCHC 33.1 (31.6-35.5) g/dL RDW 16.1 H (11.5-14.5) % Plt Count 113 L (140-400) K/mcL MPV 10.6 (9.4-12.4) fL Immature Gran % 3.6 (0-4) % Seg Neutrophils % 82.2 % Lymphocytes % 10.2 % Monocytes % 3.5 % Eosinophils % 0.2 % Basophils % 0.3 % Neutrophils # 16.8 H (1.6-8.9) K/mcL Lymphocytes # 2.1 (0.6-4.6) K/mcL Monocytes # 0.7 (0.0-1.3) K/mcL Eosinophils # 0.1 (0.0-0.6) K/mcL Basophils # 0.1 (0.0-0.2) K/mcL PT 14.9 H (9.4-12.1) Seconds INR 1.3 Sodium 134 L (136-145) mEq/L Potassium 3.9 (3.5-5.1) mEq/L Chloride 99 (98-107) mEq/L Carbon Dioxide 26 (23-29) mEq/L BUN 39 H (8-23) mg/dL Creatinine 1.00 (0.70-1.30) mg/dL Est GFR ( Amer) > 60 (> 60) Est GFR (Non-Af Amer) > 60 (> 60) BUN/Creatinine Ratio 39 H (6-26) Glucose 130 H (70-105) mg/dL Calculated Osmolality 289 (280-300) Lactic Acid (0.5-2.2) mmol/L Calcium 8.7 (8.6-10.3) mg/dL Phosphorus 2.5 L (2.7-4.5) mg/dL Magnesium 2.3 (1.6-2.6) mg/dL Total Bilirubin 1.7 H (0.3-1.0) mg/dL AST 22 (13-39) Units/L ALT 38 (7-52) Units/L Alkaline Phosphatase 43 (34-104) Units/L Troponin I < 0.03 (< 0.04) ng/mL Serum Total Protein 5.7 L (6.4-8.9) g/dL Albumin 3.7 (3.5-5.7) g/dL Globulin 2.0 L (2.4-3.5) g/dL Albumin/Globulin Ratio 1.9 (1.1-2.2) TSH 1.922 (0.340-5.600) mcIU/mL Urine Color (Yellow) Urine Clarity (Clear) Urine pH (5.0-8.0) pH Units Ur Specific [place] (1.010-1.025) Urine Protein (Neg-Trace) mg/dL Urine Glucose (UA) (Normal) mg/dL Urine Ketones (Negative) mg/dL Urine Blood (Negative) Urine Nitrite (Negative) Urine Bilirubin (Negative) Urine Urobilinogen (Normal) mg/dL Ur Leukocyte Esterase (Negative) Ur Culture Indicated? (NO) 11/02/18 11/02/18 Range/Units 15:35 18:00 WBC (4.3-11.1) K/mcL RBC (4.19-5.50) M/mcL Hgb (12.9-16.9) g/dL Hct (37.5-50.1) % MCV (83.0-100.0) fL MCH (28.0-33.3) pg MCHC (31.6-35.5) g/dL RDW (11.5-14.5) % Plt Count (140-400) K/mcL MPV (9.4-12.4) fL Immature Gran % (0-4) % Seg Neutrophils % % Lymphocytes % % Monocytes % % Eosinophils % % Basophils % % Neutrophils # (1.6-8.9) K/mcL Lymphocytes # (0.6-4.6) K/mcL Monocytes # (0.0-1.3) K/mcL Eosinophils # (0.0-0.6) K/mcL Basophils # (0.0-0.2) K/mcL PT (9.4-12.1) Seconds INR Sodium (136-145) mEq/L Potassium (3.5-5.1) mEq/L Chloride (98-107) mEq/L Carbon Dioxide (23-29) mEq/L BUN (8-23) mg/dL Creatinine (0.70-1.30) mg/dL Est GFR ( Amer) (> 60) Est GFR (Non-Af Amer) (> 60) BUN/Creatinine Ratio (6-26) Glucose (70-105) mg/dL Calculated Osmolality (280-300) Lactic Acid 1.3 (0.5-2.2) mmol/L Calcium (8.6-10.3) mg/dL Phosphorus (2.7-4.5) mg/dL Magnesium (1.6-2.6) mg/dL Total Bilirubin (0.3-1.0) mg/dL AST (13-39) Units/L ALT (7-52) Units/L Alkaline Phosphatase (34-104) Units/L Troponin I (< 0.04) ng/mL Serum Total Protein (6.4-8.9) g/dL Albumin (3.5-5.7) g/dL Globulin (2.4-3.5) g/dL Albumin/Globulin Ratio (1.1-2.2) TSH (0.340-5.600) mcIU/mL Urine Color Dark Yellow (Yellow) Urine Clarity Clear (Clear) Urine pH 6.0 (5.0-8.0) pH Units Ur Specific [place] 1.029 H (1.010-1.025) Urine Protein Trace (Neg-Trace) mg/dL Urine Glucose (UA) Normal (Normal) mg/dL Urine Ketones Negative (Negative) mg/dL Urine Blood Negative (Negative) Urine Nitrite Negative (Negative) Urine Bilirubin Small H (Negative) Urine Urobilinogen 2.0 H (Normal) mg/dL Ur Leukocyte Esterase Negative (Negative) Ur Culture Indicated? NO (NO) Critical Care Time Critical Care Time: Yes Total Critical Care Time: 35 Attestation: Critical care performed: Time is exclusive of separately billable procedures. Time includes: direct patient care, patient reassessment, coordination of patient care, interpretation of data (laboratory data, radiology data, and respiratory data), review of patient's medical records, medical consultation and documentation of patient care. Procedures included in critical care time: Procedures excluded from critical care time: Attestation Statement - Attestation Attestation: I examined this patient and my medical decision-making was reviewed with the Resident Physician. I agree with the documented findings, disposition and treatment plan as described except to the extent set forth below. Patient presents to the ED with a chief complaint of generalized weakness. Requiring increased assistance to sit up. Patient resides at a tracheostomy placed secondary to sarcoidosis changes to his vocal cords. He has been breathing faster today. It took to family members to get him in the car. On exam he is awake and alert. She medicates appropriately with a white board. States he just feels weak all over. He feels lightheaded. Plan. The patient had CT scans of his head abdomen pelvis. He had a septic workup. He has changes in his lung bases are seen on his CT abdomen pelvis. This will be treated as a hospital-acquired pneumonia with his recent trach placement. Culture sent. Lactic normal. Patient received broad-spectrum antibiotics and will be admitted to the hospitalist. EKG reviewed with the resident. Normal sinus at 92. No ischemic changes. Patient admitted. Meets sepsis criteria without shock.
[2018-11-02 16:02] LABS: INR 1.3; Prothrombin Time 14.9 Seconds (9.4-12.1)
[2018-11-02 16:13] LABS: Alanine Aminotransferase 38 Units/L (7-52); Albumin 3.7 g/dL (3.5-5.7); Albumin/Globulin Ratio 1.9 (1.1-2.2); Alkaline Phosphatase 43 Units/L (34-104); Aspartate Amino Transferase 22 Units/L (13-39); BUN/Creatinine Ratio 39 (6-26); Bilirubin,Total 1.7 mg/dL (0.3-1.0); Blood Urea Nitrogen 39 mg/dL (8-23); Calcium 8.7 mg/dL (8.6-10.3); Carbon Dioxide 26 mEq/L (23-29); Chloride 99 mEq/L (98-107); Glucose 130 mg/dL (70-105); Magnesium 2.3 mg/dL (1.6-2.6); Osmolality,Calculated 289 (280-300); Phosphorous 2.5 mg/dL (2.7-4.5); Potassium 3.9 mEq/L (3.5-5.1); Sodium 134 mEq/L (136-145); Total Protein 5.7 g/dL (6.4-8.9); Troponin I < 0.03 ng/mL (< 0.04); eGFR For African Americans > 60 (> 60); eGFR For Non-African Americans > 60 (> 60)
[2018-11-02 16:27] LABS: Thyroid Stimulating Hormone 1.922 mcIU/mL (0.340-5.600)
[2018-11-02] MEDS ORDERED: Cefepime HCl 1,000 MG in 0.9 % Sodium Chloride Mini Bag 100 ML IVPB STA (17:42)
[2018-11-02] MEDS ORDERED: Azithromycin 500 MG in 0.9 % Sodium Chloride 250 ML IVPB ONE (17:42)
[2018-11-02 18:05] LABS: Bilirubin,Urine Small (Negative); Blood,Urine Negative (Negative); Clarity,Urine Clear (Clear); Color,Urine Dark Yellow (Yellow); Glucose,Urine (UA) Normal (Normal); Ketones,Urine Negative (Negative); Leukocyte Esterase,Urine Negative (Negative); Nitrite,Urine Negative (Negative); Protein,Urine Trace mg/dL (Neg-Trace); Specific Gravity,Urine 1.029 (1.010-1.025)
[2018-11-02] MEDS ORDERED: Aminoglycoside Consult 1 EACH MC ONE (19:33)
[2018-11-02] MEDS ORDERED: Naloxone 0.4 MG/ML INJ IVP PRN (20:58)
[2018-11-02] MEDS ORDERED: *HR* Heparin 5,000 UNIT/ML VIAL IVP PRN ×2 (21:06)
[2018-11-02] MEDS ORDERED: *HR* Heparin 5,000 UNIT/ML VIAL IVP ONE (21:06)
[2018-11-02] MEDS ORDERED: *HR* Warfarin 4 MG TABLET PO ONE (21:15)
[2018-11-02] MEDS ORDERED: *HR* Warfarin 5 MG TABLET PO ONE (21:30)
--- NOTE | 2018-11-02 22:13 | Internal Med History&Physical ---
Date of Encounter: 11/02/18 Time of Encounter: 20:40 Internal Medicine - H&P: HPI Chief complaint: Pneumonia Admitted From: Emergency Dept Plans for Post Hospital Care: Home History of present illness: Mr. Barrera is a 73 year old male Patient presented to the emergency department with weakness and dizziness for 1- 1/2 days. He was recently discharged from the hospital 2 days ago after having a tracheostomy placed. Through his tracheostomy has had increased secretions that are brown and yellow in color he is able to copies up through the tube on his own without assistance. 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 He is 11 days status post tracheostomy. Emergency department vital signs: Temperature 98.9, pulse 92, respiratory rate 31, blood pressure 105/76, O2 saturation 97% on room air CBC: White count chronically elevated secondary to history of CLL and steroid use. Patient's current white count is elevated from previous at 20.5. Platelets 113, improved from previous BMP unremarkable INR 1.3 Lactic acid 1.3 Troponin undetectable Urinalysis negative for infection Chest x-ray showed no acute finding. Head CT showed no acute intracranial abnormality Abdominal CT showed no acute finding in the abdomen or pelvis but did show scattered airspace opacities in the visualized lower lungs EKG: Sinus tachycardia, heart rate 110, QTC 446 ms similar to previous EKG from 2 weeks ago, no ischemic changes In the emergency department patient was started on azithromycin, cefepime and vancomycin. He was also given a 125 mg dose of IV steroids. Blood cultures were obtained and patient was admitted to the hospital for further management. Upon my evaluation, patient is resting comfortably in the hospital and in no acute distress. He denies chest pain, abdominal pain, nausea, vomiting, diarrhea and constipation. He is hungry and wants something to eat. His dizziness has resolved. He recently was restarted on his Coumadin. He has history of pulmonary embolisms she takes the Coumadin. He is a full code. Past Med Surg Social Fam HX - Past Medical History Medical history: COPD, hyperlipidemia, pulmonary embolus, thyroid disease, other Additional medical history: PE x2 Psychiatric history: no psych history - Past Surgical History Surgical History: pacemaker/AICD Additional surgical history: 2014-Pacemaker/defibulator , back surgery 3 years ago-broken back, trach 10/22/18 CLL - Social History Smoking Status: Former smoker Smokeless Tobacco Status: No Alcohol use: none Drug use: none - Family History Mother Hx Family Cardiac Disorders: Yes Internal Medicine - H&P: Meds Albuterol Sulfate [Proventil Inhaler] 2 puff IH Q4H PRN 08/13/15 [History] Cholecalciferol (Vitamin D3) [Vitamin D3] 1,000 unit PO DAILY #0 08/13/15 [History] Levothyroxine [Synthroid] 75 mcg PO QAM 08/14/15 [History] Omeprazole 40 mg PO DAILY #30 tablet. 08/16/15 [Rx] Aspirin 81 mg PO DAILY 02/21/16 [History] Budesonide/Formoterol 160/4.5 [Symbicort 160/4.5] 2 puff IH BIDR 02/21/16 [History] Calcium Carbonate/Vitamin D3 [Calcium 500-Vit D3 200 Caplet] 1 each PO DAILY 02/21/16 [History] Rosuvastatin [Crestor] 40 mg PO HS 02/21/16 [History] Tramadol HCl [Ultram] 50 mg PO TID PRN 02/21/16 [History] predniSONE [PredniSONE] 10 mg PO DAILY 02/21/16 [History] Erythromycin OPTH Oint 1 appl BOTH EYES DAILY PRN 10/22/18 [History] Montelukast [Singulair] 10 mg PO DAILY 10/22/18 [History] Roflumilast [Daliresp] 250 mcg PO DAILY 10/22/18 [History] Warfarin [Coumadin] 4 mg PO QPM 10/22/18 [History] Cefdinir [Omnicef] 300 mg PO BID #14 capsule 10/31/18 [Rx] Allergy/AdvReac Type Severity Reaction Status Date / Time No Known Allergies Allergy Verified 10/22/18 08:28 All Systems PM: A 10-system review of systems was performed and is negative for pertinent findings except as documented above in the HPI. - Constitutional Vitals: Temp Pulse Resp BP Pulse Ox 98.7 F 76 20 105/75 96 11/02/18 20:52 11/02/18 20:52 11/02/18 20:52 11/02/18 20:52 11/02/18 21:06 General appearance: Present: cooperative, A&O X 3, pleasant, no acute distress, answers questions appropriately Exam: Patient unable to speak, right answers on whiteboard - Head Head exam: Present: normal inspection - Eye Eye exam: Present: EOMI, normal appearance - ENT Additional comments: Tracheostomy, patient has dark brown secretions, able to cough it up on his own - Neck Additional comments: Tracheostomy - Respiratory Respiratory exam: Present: decreased breath sounds, CTAB, rales. Absent: respiratory distress, rhonchi, wheezes Additional comments: Mild crackles left lung base, right lung decreased breath sounds - Cardiovascular Cardiovascular exam: Present: RRR. Absent: diastolic murmur, systolic murmur - GI/Abdominal GI/Abdominal exam: Present: normal bowel sounds, soft. Absent: tenderness - Extremities Exam Extremities exam: Present: radial pulses palpable and symmetrical. Absent: calf tenderness, pedal edema, tenderness - Neurological Exam Neurological exam: Present: no focal deficits, strengths equal and symetr throughout, speech deficit. Absent: motor sensory deficit, facial droop Additional comments: Patient unable to speak due to tracheostomy - Skin Skin exam: Present: dry, normal color, warm Internal Med - H&P Results - Labs CBC & Chem 7: 11/02/18 15:20 11/02/18 15:20 Labs: Short CBC 11/02/18 Range/Units 15:20 WBC 20.5 H (4.3-11.1) K/mcL Hgb 15.6 (12.9-16.9) g/dL Hct 47.1 (37.5-50.1) % Plt Count 113 L (140-400) K/mcL Neutrophils # 16.8 H (1.6-8.9) K/mcL BMP 11/02/18 15:20 Sodium 134 L Potassium 3.9 Chloride 99 Carbon Dioxide 26 BUN 39 H Creatinine 1.00 Glucose 130 H Calcium 8.7 Cardiac Enzymes 11/02/18 Range/Units 15:20 Troponin I < 0.03 (< 0.04) ng/mL Liver Function 11/02/18 Range/Units 15:20 Total Bilirubin 1.7 H (0.3-1.0) mg/dL AST 22 (13-39) Units/L ALT 38 (7-52) Units/L Alkaline Phosphatase 43 (34-104) Units/L Albumin 3.7 (3.5-5.7) g/dL Urine 11/02/18 Range/Units 18:00 Urine Color Dark Yellow (Yellow) Urine Clarity Clear (Clear) Urine pH 6.0 (5.0-8.0) pH Units Ur Specific [place] 1.029 H (1.010-1.025) Urine Protein Trace (Neg-Trace) mg/dL Urine Glucose (UA) Normal (Normal) mg/dL - Impressions ITS Impressions Abdomen/Pelvis CT 11/02/18 15:22 IMPRESSION: 1. No acute finding in the abdomen or pelvis. 2. Scattered airspace opacities in the visualized lower lobes. Recommend correlation with any pulmonary symptoms. Follow-up imaging of the chest may be considered if indicated. D/ / Uli Dawson MD / Uli Dawson MD Interpreting Provider: Uli Dawson MD Head CT 11/02/18 15:22 IMPRESSION: No acute intracranial abnormality. D/ / Kevin Trejo MD / Kevin Trejo MD Interpreting Provider: Kevin Trejo MD Chest X-Ray 11/02/18 15:23 IMPRESSION: Stable appearance of the chest with no acute finding. D/ / Uli Dawson MD / Uli Dawson MD Interpreting Provider: Uli Dawson MD - Assessment and Plan (1) Healthcare-associated pneumonia Current Visit: Yes Status: Acute Assessment and plan: As seen x-ray. Patient started on azithromycin, cefepime and vancomycin in the emergency department. Blood cultures were obtained. Continue cefepime and vancomycin Discontinue azithromycin Start Zosyn Follow-up blood cultures Monitor for worsening signs of infection (2) Tracheitis Current Visit: Yes Status: Acute Assessment and plan: With signs of pneumonia on x-ray. Treating as above. (3) Subtherapeutic international normalized ratio (INR) Current Visit: Yes Status: Acute Assessment and plan: Patient subtherapeutic INR of 1.3, on coumadin. Restarted coumadin on Saturday at the time of his discharge. He did have some bleeding post op, but that improved after the patient returned to the OR and had the areas cauterized. No signs of bleeding at this time. Continue coumadin Start heparin drip while patient is subtherapeutic [place] for signs of bleeding. (4) Presence of tracheostomy Current Visit: No Status: Acute Assessment and plan: 11 days post op. Continue to monitor (5) CLL (chronic lymphocytic leukemia) Current Visit: No Status: Chronic Assessment and plan: Continue to monitor (6) Sarcoidosis Current Visit: No Status: Chronic Assessment and plan: History of sarcoidosis. On chronic steroids. Patient was given high-dose IV steroids in the emergency department. Continue home steroid dose (7) History of pulmonary embolism Current Visit: No Status: Chronic Assessment and plan: Takes warfarin, currently subtherapeutic. Bridging with heparin Monitor for signs of bleeding (8) DVT prophylaxis Current Visit: No Status: Acute Assessment and plan: Continue home warfarin, bridging with heparin as he is subtherapeutic. - Time Spent With Patient Total time spent is greater than 50% in coordination of care (as documented) at patient's floor/unit and/or counseling patient: Greater than 35 minutes
[2018-11-02] MEDS: Heparin 25,000 UNIT/250 ML D5W 25,000 UNIT/250 ML IV.SOLN IVC SCH (22:58)
[2018-11-02] MEDS: Cefepime HCl 1,000 MG in Water for inj. (sterile) 10 ML IVP SCH (23:07)
[2018-11-03] MEDS ORDERED: Piperacillin/Tazobactam 3.375 GM in 0.9 % Sodium Chloride Mini Bag 100 ML IVPB SCH
[2018-11-03 05:14] LABS: Hemoglobin 14.1 g/dL (12.9-16.9)
[2018-11-03 05:16] LABS: Hematocrit 42.3 % (37.5-50.1); Immature Platelets 4.7 % (1.1-6.1); Mean Corpuscular HGB Conc 33.3 g/dL (31.6-35.5); Mean Corpuscular Hemoglobin 30.2 pg (28.0-33.3); Mean Corpuscular Volume 90.6 fL (83.0-100.0); Mean Platelet Volume 10.1 fL (9.4-12.4); Red Blood Count 4.67 M/mcL (4.19-5.50); Red Cell Distribution Width 15.8 % (11.5-14.5); White Blood Count 13.6 K/mcL (4.3-11.1)
[2018-11-03 05:22] LABS: INR 1.5; Prothrombin Time 17.3 Seconds (9.4-12.1)
[2018-11-03 05:30] LABS: Alanine Aminotransferase 36 Units/L (7-52); Albumin 3.3 g/dL (3.5-5.7); Albumin/Globulin Ratio 1.8 (1.1-2.2); Alkaline Phosphatase 36 Units/L (34-104); Aspartate Amino Transferase 19 Units/L (13-39); BUN/Creatinine Ratio 42 (6-26); Bilirubin,Direct 0.3 mg/dL (0.0-0.2); Bilirubin,Indirect 0.9 mg/dL (0.0-1.2); Bilirubin,Total 1.2 mg/dL (0.3-1.0); Blood Urea Nitrogen 36 mg/dL (8-23); Carbon Dioxide 26 mEq/L (23-29); Chloride 102 mEq/L (98-107); Globulin 1.8 g/dL (2.4-3.5); Glucose 142 mg/dL (70-105); Magnesium 2.4 mg/dL (1.6-2.6); Osmolality,Calculated 289 (280-300); Phosphorous 3.2 mg/dL (2.7-4.5); Potassium 4.2 mEq/L (3.5-5.1); Sodium 134 mEq/L (136-145); Total Protein 5.1 g/dL (6.4-8.9); eGFR For African Americans > 60 (> 60); eGFR For Non-African Americans > 60 (> 60)
[2018-11-03] MEDS: Cefepime HCl 1,000 MG in Water for inj. (sterile) 10 ML IVP SCH ×2 (08:48→16:06)
[2018-11-03] MEDS: predniSONE 10 MG TABLET PO SCH (08:49)
[2018-11-03] MEDS: Aspirin 81 MG TAB.CHEW PO SCH (08:49)
--- NOTE | 2018-11-03 11:48 | Internal Med Progress Note ---
Hospitalist Progress Note - Encounter Date of Encounter: 11/03/18 Time of Encounter: 10:50 - Subjective Interval History: Patient was seen this morning, he feels better compared to yesterday. He has no chest pain, shortness of breath or palpitation. - Exam Vitals: Temp Pulse Resp BP Pulse Ox 97.8 F 74 18 119/83 96 11/03/18 04:43 11/03/18 08:13 11/03/18 08:13 11/03/18 08:13 11/03/18 08:13 Exam: General: Patient is alert, oriented 3. Using WHITE BOARD t to write a communicate Head: Atraumatic, normal inspection, normocephalic. Eye: EOMI, PERRLA,. ENT: has a trach with frothy secretion Neck: Normal inspection, Respiratory: No respiratory distress, rhonchi, or wheezes noted. Cardiovascular: Regular rate and regular rhythm, S1 and S2 audible. No murmurs, rubs, or gallops. GI: Soft, nondistended, normal bowel sounds. Extremities:No joint swelling, pedal edema, or tenderness noted. Neurological: Alert, oriented 3, no focal deficits. Psychiatric: normal affect, normal mood. Skin: Dry, intact, warm. Normal color. No rashes. - Assessment and Plan (1) Sarcoidosis Current Visit: Yes Status: Chronic (2) CLL (chronic lymphocytic leukemia) Current Visit: No Status: Chronic (3) History of pulmonary embolism Current Visit: No Status: Chronic (4) Presence of tracheostomy Current Visit: No Status: Acute (5) Healthcare-associated pneumonia Current Visit: Yes Status: Acute (6) Tracheitis Current Visit: Yes Status: Acute (7) Subtherapeutic international normalized ratio (INR) Current Visit: Yes Status: Acute (8) DVT prophylaxis Current Visit: No Status: Acute - Summary of Assessment and Plan Summary of Assessment and Plan: 73-year-old male with history of CLL, sarcoidosis with recent vocal cord involvement and trach placement, chronic PE who was admitted to the hospital due to generalized weakness. He noted increase yellowish secretions from his trach. His symptoms are managed as following: Generalized weakness: - Likely deconditioning versus infection. He is also on chronic steroid therapy. Healthcare associated pneumonia: On RA - Previous sputum cultures grew S[place], patient had leukocytosis hired and his discharge however he has CLL and steroids therapy - CT abdomen showed scattered airspace opacifications in the visualized lower lobes. - Continue with renally dosed vanc/cefepime, check sputum culture. BCx are negative Diffuse sarcoidosis: - On chronic steroid therapy, Check CPK. was supposed to meet with rheumatoid tomorrow. Consult to rheumatology placed. Chronic PE: - On coumadin at home. on heparin gtt. Check INR tomorrow. Hx of CLL: not on chemo therapy I reviewed independently all laboratory workup, pertinent images including x- rays and CT scans. I also reviewed independently and EKGs and my findings are in the body of my assessment and plan. I ordered the laboratory workup and images myself. I discussed finding with patient's, their families, RN's and consultants involved in the care of the patient. - Time Spent with Patient Total time spent is greater than 50% in coordination of care (as documented) at patient's floor/unit and/or counseling patient: Plan of Care Discussed with: patient Internal Medicine: Result - Labs CBC & Chem 7: 11/03/18 04:52 11/03/18 04:52 Labs: Short CBC 11/02/18 11/03/18 Range/Units 15:20 04:52 WBC 20.5 H 13.6 H (4.3-11.1) K/mcL Hgb 15.6 14.1 D (12.9-16.9) g/dL Hct 47.1 42.3 (37.5-50.1) % Plt Count 113 L 88 L (140-400) K/mcL Neutrophils # 16.8 H (1.6-8.9) K/mcL BMP 11/02/18 11/03/18 15:20 04:52 Sodium 134 L 134 L Potassium 3.9 4.2 Chloride 99 102 Carbon Dioxide 26 26 BUN 39 H 36 H Creatinine 1.00 0.86 Glucose 130 H 142 H Calcium 8.7 8.0 L Cardiac Enzymes 11/02/18 Range/Units 15:20 Troponin I < 0.03 (< 0.04) ng/mL Liver Function 11/02/18 11/03/18 Range/Units 15:20 04:52 Total Bilirubin 1.7 H 1.2 H (0.3-1.0) mg/dL Direct Bilirubin 0.3 H (0.0-0.2) mg/dL AST 22 19 (13-39) Units/L ALT 38 36 (7-52) Units/L Alkaline Phosphatase 43 36 (34-104) Units/L Albumin 3.7 3.3 L (3.5-5.7) g/dL Urine 11/02/18 Range/Units 18:00 Urine Color Dark Yellow (Yellow) Urine Clarity Clear (Clear) Urine pH 6.0 (5.0-8.0) pH Units Ur Specific [place] 1.029 H (1.010-1.025) Urine Protein Trace (Neg-Trace) mg/dL Urine Glucose (UA) Normal (Normal) mg/dL - ABG Interpretation ABG results: PT/INR, D-dimer PT 17.3 Seconds (9.4-12.1) H 11/03/18 04:52 - Impressions Impressions Abdomen/Pelvis CT 11/02/18 15:22 IMPRESSION: 1. No acute finding in the abdomen or pelvis. 2. Scattered airspace opacities in the visualized lower lobes. Recommend correlation with any pulmonary symptoms. Follow-up imaging of the chest may be considered if indicated. D/ / Uli Dawson MD / Uli Dawson MD Interpreting Provider: Uli Dawson MD Head CT 11/02/18 15:22 IMPRESSION: No acute intracranial abnormality. D/ / Kevin Trejo MD / Kevin Trejo MD Interpreting Provider: Kevin Trejo MD Chest X-Ray 11/02/18 15:23 IMPRESSION: Stable appearance of the chest with no acute finding. D/ / Uli Dawson MD / Uli Dawson MD Interpreting Provider: Uli Dawson MD Consult Discharge Plan - Plan [facility]errals: [facility] [Primary Care Provider] -
[2018-11-03] MEDS ORDERED: Warfarin perPT PO PRN (18:00)
[2018-11-03] MEDS ORDERED: *HR* Warfarin 4 MG TABLET PO ONE (18:00)
--- NOTE | 2018-11-04 00:18 | Electrocardiograph Report ---
[facility] Date: 2018-11-02 Pat Name: Sam Barrera Department: EXAM2 Room: 2NE24 Gender: M Woods Manager: : [id number] Requested By: Joe Traore Order Number: [id number] Reading MD: Florinda Rankin Measurements Intervals [place] Rate: 98 P: 69 PA: 136 QRS: 68 QRSD: 85 T: 64 QT: 370 QTc: 456 Interpretive Statements Sinus rhythm Atrial premature complexes Electronically Signed On 11-04-2018 0:16:53 EDT by Florinda Rankin
[2018-11-04] MEDS: Cefepime HCl 1,000 MG in Water for inj. (sterile) 10 ML IVP SCH ×3 (00:46→16:22)
[2018-11-04] MEDS: Heparin 25,000 UNIT/250 ML D5W 25,000 UNIT/250 ML IV.SOLN IVC SCH (06:47)
[2018-11-04 07:24] LABS: Mean Corpuscular HGB Conc 33.3 g/dL (31.6-35.5); Mean Corpuscular Hemoglobin 30.2 pg (28.0-33.3); Mean Corpuscular Volume 90.7 fL (83.0-100.0); Platelet Count 125 K/mcL (140-400); Red Blood Count 4.63 M/mcL (4.19-5.50); Red Cell Distribution Width 15.7 % (11.5-14.5); White Blood Count 14.5 K/mcL (4.3-11.1)
[2018-11-04 07:32] LABS: INR 1.8; Prothrombin Time 19.9 Seconds (9.4-12.1)
[2018-11-04 07:38] LABS: BUN/Creatinine Ratio 32 (6-26); Blood Urea Nitrogen 24 mg/dL (8-23); Calcium 8.1 mg/dL (8.6-10.3); Carbon Dioxide 25 mEq/L (23-29); Chloride 103 mEq/L (98-107); Creatine Kinase 45 Units/L (30-223); Glucose 94 mg/dL (70-105); Osmolality,Calculated 288 (280-300); Potassium 3.4 mEq/L (3.5-5.1); Sodium 137 mEq/L (136-145); eGFR For African Americans > 60 (> 60); eGFR For Non-African Americans > 60 (> 60)
--- NOTE | 2018-11-04 08:28 | Rheumatology Consult Note ---
<Lizzeth Fine - Last Filed: 11/04/18 10:22> Date of Encounter: 11/04/18 Time of Encounter: 08:27 Rheumatology Assess and Plan (1) Sarcoidosis Current Visit: Yes Status: Chronic - Biopsy confirmed diagnosis x 10 years on chronic prednisone therapy of 10 mg/day for last 10 years. - Diagnosed and managed by pulmonology at [facility]. - s/p AICD/pacemaker secondary to sarcoidosis. - CT abdomen pelvis shows scattered airspace opacities in the visualized lower lobes. CXR negative for acute findings. - Pulmonary imaging appears improved from previous study. - Unclear as to whether or not his vocal cord issues are related to sarcoidosis, recent vocal cord biopsy findings non-specific Recommendations: - Hepatitis B and C serologies - Quantiferon gold - Additional immunosuppressive agents may be limited as a result of his CLL - Consider CT neck to evaluate for possible sarcoidosis involvement - Will consider 40 mg/day steroid burst and taper over 6 weeks once acute infection clears - Outpatient follow up to establish care and re-evaluate (2) Chronic use of steroids Current Visit: Yes Status: Chronic - Long-term use of prednisone 10 mg/day x 10 years for diagnoses of sarcoidosis and CLL. Recommendations - Trial 40 mg/day steroid burst and taper over 6 weeks (3) CLL (chronic lymphocytic leukemia) Current Visit: No Status: Chronic - Diagnosed by [facility], routine f/u appointments with hematology every 6 months - Current therapy is prednisone, per pt no other treatments planned Rheumatology HPI Consult date: 11/04/18 Requesting physician: Audra Hunter Consult reason: sarcoidosis History of present illness: Mr. Barrera is a very pleasant 73 year old male with history of sarcoidosis diagnosed by biopsy 10 years ago by [place] [facility]ology in [place]. He's never seen rheumatology for sarcoidosis or any other reason. Pt states sarcoidosis involves his lungs and heart and is the reason why he needed AICD/PCM placement. Sarcoidosis currently being treated with prednisone, which he has been on for last 10 years. Pt has not been on other medication for his sarcoidosis because of his CLL which was diagnosed 2-3 years ago. He denies any history of or known exposure to TB, Hep B, or Hep C. Pt was told his CLL and sarcoidosis were related to [employer] [place] exposure during his time in service. He had tracheostomy placed earlier this month by Dr. Blevins of ENT due to vocal cord paralysis. Pt reports having trouble with his voice changing over last 2-3 years. Vocal cords biopsied at that time and pt was told the biopsy showed scarring. At time of my exam, pt is awake and in no acute distress watching television. He reports feeling ok overall. States he's felt warm at times, but denies fevers or chills. Denies chest pain or irregular heartbeat. Denies dyspnea, nausea, vomiting, abdominal pain. He has no complaints at this time. Past Med Surg Social Fam HX - Past Medical History Medical history: COPD, hyperlipidemia, pulmonary embolus, thyroid disease, other Additional medical history: PE x2 Psychiatric history: no psych history - Past Surgical History Surgical History: pacemaker/AICD Additional surgical history: 2015-Pacemaker/defibulator , back surgery 3 years ago-broken back, trach 10/22/18 CLL - Social History Smoking Status: Former smoker Smokeless Tobacco Status: No Alcohol use: none Drug use: none - Family History Mother Hx Family Cardiac Disorders: Yes Medications and Allergies Albuterol Sulfate [Proventil Inhaler] 2 puff IH Q4H PRN 08/13/15 [History] Cholecalciferol (Vitamin D3) [Vitamin D3] 1,000 unit PO DAILY #0 08/13/15 [History] Levothyroxine [Synthroid] 75 mcg PO QAM 08/14/15 [History] Omeprazole 40 mg PO DAILY #30 tablet. 08/16/15 [Rx] Aspirin 81 mg PO DAILY 02/21/16 [History] Budesonide/Formoterol 160/4.5 [Symbicort 160/4.5] 2 puff IH BIDR 02/21/16 [History] Calcium Carbonate/Vitamin D3 [Calcium 500-Vit D3 200 Caplet] 1 each PO DAILY 02/21/16 [History] Rosuvastatin [Crestor] 40 mg PO HS 02/21/16 [History] Tramadol HCl [Ultram] 50 mg PO TID PRN 02/21/16 [History] predniSONE [PredniSONE] 10 mg PO DAILY 02/21/16 [History] Erythromycin OPTH Oint 1 appl BOTH EYES DAILY PRN 10/22/18 [History] Montelukast [Singulair] 10 mg PO DAILY 10/22/18 [History] Roflumilast [Daliresp] 250 mcg PO DAILY 10/22/18 [History] Warfarin [Coumadin] 4 mg PO QPM 10/22/18 [History] Cefdinir [Omnicef] 300 mg PO BID #14 capsule 10/31/18 [Rx] Allergy/AdvReac Type Severity Reaction Status Date / Time No Known Allergies Allergy Verified 10/22/18 08:28 All Systems Review: The remainder of the systems were reviewed and are negative Review of Systems: General: denies fevers, chills Cardiac: denies chest pain, irregular heartbeat Respiratory: denies dyspnea, admits to cough with sputum production GI: denies abdominal pain, nausea, vomiting Rheumatology Exam Vital Signs, Last 4 Hours Temp Pulse Resp BP Pulse Ox 11/04/18 08:10 76 16 112/80 96 11/04/18 04:56 97.5 F L 63 19 137/81 95 Exam: General: No acute distress, resting comfortably in bed, uses white board to communicate HEENT: head normocephalic/atraumatic, EOMI, PERRL, sclera anicteric, moist mucus membranes Neck: Supple, tracheostomy noted with drainage of yellow sputum Cardio: RRR, no murmurs, +S1/S2 normal Pulm: CTAB, normal respiratory effort Extremities:no cyanosis or clubbing Neuro: AAOx3, no appreciable motor deficits, no appreciable sensory deficits, moves all extremities spontaneously MSK: no visible deformities, no joint swelling Skin: clean, dry, intact, no visible rashes Psych: Appropriate mood and affect. Answers questions appropriately. Cooperative with exam Rheumatology Results 11/04/18 06:58 11/04/18 06:58 All other labs normal. Consult Discharge Plan - Plan [facility]errals: [facility] [Primary Care Provider] - <Marco Hughes - Last Filed: 11/04/18 17:00> Date of Encounter: 11/04/18 Rheumatology HPI History of present illness: Mr. Barrera is a 73 year old male All Systems Review: The remainder of the systems were reviewed and are negative Rheumatology Results 11/04/18 06:58 11/04/18 06:58 All other labs normal. - Attending Attestation I examined this patient and my medical decision making was reviewed with the resident physician. I agree with the documented findings, disposition and tr eatment as described with these exceptions. Sam Barrera is a 73-year-old male with PMH of pulmonary, cardiac sarcoidosis (s/p AICD) CLL who presents to [place] for weakness, dizziness and increased sec retions. History is somewhat limited as patient is nonvocal at this time. He has a history of sacroidosis diagnosed ~2008 by the [facility].Pulmonary involvement and cardiac involvement led to an AICD placement. He reports that he has been on doses of prednisone for the last 10 years. Has a history of CLL. Previously 2016 CT scans available to me with lymphadenopathy and nodules. Now with some scattered nodules. Has had chronic hoarseness, but has recently worsening. I spoke to ENT in which reports given the worsening he was given a tracheostomy. Biopsy showed histiocytosis. I did speak with path reporting one granuloma present. Today, the patient denies complaints but difficult to get history due to inability to speak. 1) Sarcoidosis - Sam has a long and established history of pulmonary and cardiac sarcoidosis. It has been suspected that he had some laryngeal involvement. I discussed the case with ENT, pulmonary and also with pathology. Pathology did report that much of it was nonspecific findings, but there was one formed granuloma. Otherwise, his pulmonary imaging does not suggest too much active sarcoidosis. I am also going to try to get in touch with his outpatient design studio consultant for more information. - My recommendation at this time would be to treat the current infection, then I would give him a higher dose of prednisone for 4-6 weeks. Steroid sparing agent options may be limited given his comorbid CLL. When discharged, I will see him soon in clinic to discuss this dosing and hopefully have touched base with his design studio consultant at that time.
[2018-11-04] MEDS: predniSONE 10 MG TABLET PO SCH (09:22)
[2018-11-04] MEDS: Aspirin 81 MG TAB.CHEW PO SCH (09:22)
[2018-11-04] MEDS ORDERED: Potassium Chloride Elixir 20 MEQ/15 ML UDC PO ONE (14:13)
--- NOTE | 2018-11-04 14:15 | Internal Med Progress Note ---
Hospitalist Progress Note - Encounter Date of Encounter: 11/04/18 Time of Encounter: 10:00 - Subjective Interval History: Patient was seen this morning, he was slightly short of breath and has secretions coming out of his trach. Shortness of breath resolved with suction. He denied chest pain, palpitation fever, chills or night sweats. - Exam Vitals: Temp Pulse Resp BP Pulse Ox 97.5 F L 76 16 112/80 96 11/04/18 04:56 11/04/18 08:10 11/04/18 08:10 11/04/18 08:10 11/04/18 08:10 Exam: General: Patient is alert, oriented 3. Using WHITE BOARD t to write a communicate Head: Atraumatic, normal inspection, normocephalic. Eye: EOMI, PERRLA,. ENT: has a trach with yellowish secretion Neck: Normal inspection, Respiratory: Bibasilar crackles Cardiovascular: Regular rate and regular rhythm, S1 and S2 audible. No murmurs, rubs, or gallops. GI: Soft, nondistended, normal bowel sounds. Extremities:No joint swelling, pedal edema, or tenderness noted. Neurological: Alert, oriented 3, no focal deficits. Psychiatric: normal affect, normal mood. Skin: Dry, intact, warm. Normal color. No rashes. - Assessment and Plan (1) Sarcoidosis Current Visit: Yes Status: Chronic (2) CLL (chronic lymphocytic leukemia) Current Visit: No Status: Chronic (3) History of pulmonary embolism Current Visit: No Status: Chronic (4) Presence of tracheostomy Current Visit: No Status: Acute (5) Healthcare-associated pneumonia Current Visit: Yes Status: Acute (6) Tracheitis Current Visit: Yes Status: Acute (7) Subtherapeutic international normalized ratio (INR) Current Visit: Yes Status: Acute (8) DVT prophylaxis Current Visit: No Status: Acute - Summary of Assessment and Plan Summary of Assessment and Plan: 73-year-old male with history of CLL, sarcoidosis with recent vocal cord involvement and trach placement, chronic PE who was admitted to the hospital due to generalized weakness. He noted increase yellowish secretions from his trach. His symptoms are managed as following: Generalized weakness: -Likely deconditioning versus infection. He is also on chronic steroid therapy. -PT/OT recommended inpatient rehabilitation Healthcare associated pneumonia: On RA - Previous sputum cultures grew Serratia, patient had leukocytosis hired and his discharge however he has CLL and steroids therapy - CT abdomen showed scattered airspace opacifications in the visualized lower lobes. - Continue with cefepime, sputum culture is pending. BCx are negative. MRSA is negative. - Communication to RN to suction TID as needed. Diffuse sarcoidosis: - On chronic steroid therapy. was supposed to meet with rheumatoid tomorrow. Consult to rheumatology placed, appreciate recommendation. Chronic PE: - On coumadin at home. on heparin gtt. Check INR tomorrow. Hx of CLL: not on chemo therapy DVT ppx: heparin gtt - Time Spent with Patient Total time spent is greater than 50% in coordination of care (as documented) at patient's floor/unit and/or counseling patient: Plan of Care Discussed with: patient Internal Medicine: Result - Labs CBC & Chem 7: 11/04/18 06:58 11/04/18 06:58 Labs: Short CBC 11/04/18 Range/Units 06:58 WBC 14.5 H (4.3-11.1) K/mcL Hgb 14.0 (12.9-16.9) g/dL Hct 42.0 (37.5-50.1) % Plt Count 125 L (140-400) K/mcL BMP 11/04/18 06:58 Sodium 137 Potassium 3.4 L Chloride 103 Carbon Dioxide 25 BUN 24 H Creatinine 0.76 Glucose 94 Calcium 8.1 L - ABG Interpretation ABG results: PT/INR, D-dimer PT 19.9 Seconds (9.4-12.1) H 11/04/18 06:58 Consult Discharge Plan - Plan [facility]errals: [facility] [Primary Care Provider] -
[2018-11-04] MEDS ORDERED: *HR* Warfarin 4 MG TABLET PO ONE (18:00)
[2018-11-04] MEDS ORDERED: *HR* OxyCODONE Immed Rel 5 MG TABLET PO ONE (21:44)
[2018-11-05] MEDS: Cefepime HCl 1,000 MG in Water for inj. (sterile) 10 ML IVP SCH ×4 (06:05→23:40)
[2018-11-05 07:16] LABS: Hematocrit 43.4 % (37.5-50.1); Hemoglobin 14.5 g/dL (12.9-16.9); Mean Corpuscular HGB Conc 33.4 g/dL (31.6-35.5); Mean Corpuscular Hemoglobin 30.5 pg (28.0-33.3); Mean Corpuscular Volume 91.4 fL (83.0-100.0); Mean Platelet Volume 9.9 fL (9.4-12.4); Platelet Count 137 K/mcL (140-400); Red Blood Count 4.75 M/mcL (4.19-5.50); Red Cell Distribution Width 15.8 % (11.5-14.5)
[2018-11-05 07:30] LABS: INR 2.1; Prothrombin Time 23.6 Seconds (9.4-12.1)
[2018-11-05 07:38] LABS: BUN/Creatinine Ratio 21 (6-26); Blood Urea Nitrogen 18 mg/dL (8-23); Calcium 8.2 mg/dL (8.6-10.3); Carbon Dioxide 27 mEq/L (23-29); Chloride 102 mEq/L (98-107); Glucose 94 mg/dL (70-105); Magnesium 2.3 mg/dL (1.6-2.6); Osmolality,Calculated 288 (280-300); Potassium 3.9 mEq/L (3.5-5.1); Sodium 138 mEq/L (136-145); eGFR For African Americans > 60 (> 60); eGFR For Non-African Americans > 60 (> 60)
[2018-11-05] MEDS: Budesonide/Formoterol 160/4.5 1 PUFF INH IH SCH ×2 (07:38→19:27)
[2018-11-05] MEDS: predniSONE 10 MG TABLET PO SCH (07:41)
[2018-11-05] MEDS: Aspirin 81 MG TAB.CHEW PO SCH (07:41)
[2018-11-05] MEDS: Heparin 25,000 UNIT/250 ML D5W 25,000 UNIT/250 ML IV.SOLN IVC SCH (10:17)
--- NOTE | 2018-11-05 11:43 | Internal Med Progress Note ---
Hospitalist Progress Note - Encounter Date of Encounter: 11/05/18 Time of Encounter: 08:45 - Subjective Interval History: Reports improvement in his breathing. Able to cough up much more after receiving breathing treatment. The amount that is suctioned over the course of yesterday became scanty as well according to the RN. Denies any chest pain or palpitation. No fever overnight. - Exam Vitals: Temp Pulse Resp BP Pulse Ox 97.9 F 83 19 126/75 94 11/05/18 07:08 11/05/18 07:08 11/05/18 07:39 11/05/18 07:08 11/05/18 07:39 Exam: General: Patient is alert, oriented 3. Neck: Tracheostomy tube in situ with minimal amount of yellowish sputum noted at the tip Respiratory: Mild rhonchi at the lung bases right greater than left Cardiovascular: Regular rate and regular rhythm, S1 and S2 audible. No murmurs, rubs, or gallops. GI: Soft, nondistended, normal bowel sounds. Neurological: no focal deficits. - Assessment and Plan (1) Healthcare-associated pneumonia Current Visit: Yes Status: Acute (2) Sarcoidosis Current Visit: Yes Status: Chronic (3) CLL (chronic lymphocytic leukemia) Current Visit: No Status: Chronic (4) History of pulmonary embolism Current Visit: No Status: Chronic (5) Presence of tracheostomy Current Visit: No Status: Acute (6) DVT prophylaxis Current Visit: No Status: Acute (7) Subtherapeutic international normalized ratio (INR) Current Visit: Yes Status: Acute (8) Cardiomyopathy Current Visit: Yes Status: Chronic DVT Prophylaxis: Therapeutic INR, will DC heparin drip - Summary of Assessment and Plan Summary of Assessment and Plan: 73-year-old male with history of CLL, sarcoidosis with recent admission for vocal cord paralysis leading to trach placement, PE who was admitted to the hospital due to generalized weakness and increased secretions from his trach. He was found to have bibasilar pneumonia and was started on cefepime. Healthcare associated pneumonia: - during the recent admission, he was thought to have tracheobronchitis versus early pneumonia with sputum cultures growing Serratia. Patient was apparently discharged on Omnicef but never received it since discharge. - Limited lung imaging of CT abdomen showed scattered airspace opacifications in the lower lobes. Also had leukocytosis that is improving after being started on antibiotics. - Sputum culture growing gram-negative rods, MRSA screen negative. Continue cefepime for now - Only scanty amount of secretions suctioned yesterday, will continue suction PRN and add chest percussion therapy Generalized weakness: -Although patient has pneumonia, patient is likely to be deconditioned from prolonged hospital stay during the last admission -PT/OT recommended inpatient rehabilitation, will work with social work program coordinator for placement. Diffuse sarcoidosis: - On chronic steroid therapy. 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 need for PATSY-i and bb, defer to outpatient follow up Chronic PE: - INR was subtherapeutic on presentation and was being bridged with heparin drip. INR 2.1 today, will discontinue heparin drip and continue Coumadin. Pharmacy to dose. Daily INR - Time Spent with Patient Total time spent is greater than 50% in coordination of care (as documented) at patient's floor/unit and/or counseling patient: 25 - 35 minutes Plan of Care Discussed with: patient Internal Medicine: Result - Labs CBC & Chem 7: 11/05/18 06:55 11/05/18 06:55 Labs: Short CBC 11/05/18 Range/Units 06:55 WBC 13.0 H (4.3-11.1) K/mcL Hgb 14.5 (12.9-16.9) g/dL Hct 43.4 (37.5-50.1) % Plt Count 137 L (140-400) K/mcL BMP 11/05/18 06:55 Sodium 138 Potassium 3.9 Chloride 102 Carbon Dioxide 27 BUN 18 Creatinine 0.85 Glucose 94 Calcium 8.2 L - ABG Interpretation ABG results: PT/INR, D-dimer PT 23.6 Seconds (9.4-12.1) H 11/05/18 06:55 Consult Discharge Plan - Plan [facility]errals: [facility] [Primary Care Provider] - (8) Cardiomyopathy Qualifiers: Cardiomyopathy type: due to sarcoidosis 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
[2018-11-05] MEDS ORDERED: *HR* Warfarin 4 MG TABLET PO ONE (18:00)
[2018-11-06 04:45] LABS: Basophils % 0.4 %; Eosinophils # 0.1 K/mcL (0.0-0.6); Eosinophils % 0.8 %; Hematocrit 42.3 % (37.5-50.1); Immature Granulocytes % 4.1 % (0-4); Lymphocytes # 2.1 K/mcL (0.6-4.6); Lymphocytes % 18.8 %; Mean Corpuscular HGB Conc 33.1 g/dL (31.6-35.5); Mean Corpuscular Hemoglobin 29.9 pg (28.0-33.3); Mean Corpuscular Volume 90.2 fL (83.0-100.0); Monocytes # 0.6 K/mcL (0.0-1.3); Monocytes % 5.5 %; Platelet Count 142 K/mcL (140-400); Red Blood Count 4.69 M/mcL (4.19-5.50); Red Cell Distribution Width 15.9 % (11.5-14.5); Segmented Neutrophils % 70.4 %; White Blood Count 11.3 K/mcL (4.3-11.1)
[2018-11-06 04:55] LABS: INR 2.1
[2018-11-06 05:02] LABS: BUN/Creatinine Ratio 22 (6-26); Blood Urea Nitrogen 17 mg/dL (8-23); Calcium 8.3 mg/dL (8.6-10.3); Carbon Dioxide 26 mEq/L (23-29); Chloride 103 mEq/L (98-107); Glucose 94 mg/dL (70-105); Osmolality,Calculated 281 (280-300); Potassium 4.1 mEq/L (3.5-5.1); Sodium 135 mEq/L (136-145); eGFR For African Americans > 60 (> 60); eGFR For Non-African Americans > 60 (> 60)
[2018-11-06 07:23] VITALS: BP 114/79
[2018-11-06] MEDS: Budesonide/Formoterol 160/4.5 1 PUFF INH IH SCH (07:36)
[2018-11-06] MEDS: Aspirin 81 MG TAB.CHEW PO SCH (08:07)
[2018-11-06] MEDS: Cefepime HCl 1,000 MG in Water for inj. (sterile) 10 ML IVP SCH (08:07)
[2018-11-06] MEDS: predniSONE 10 MG TABLET PO SCH (08:07)
--- NOTE | 2018-11-06 08:52 | Discharge Summary ---
- NOTES TO OUTPATIENT PROVIDER Notes to Outpatient Provider: Complete 7 days of Levaquin then start PO Prednisone 40mg daily which is to be tapered over 6 weeks. Follow up with ENT and Rheumatology as outpatient. Orders not resulted at time of discharge: Pending orders 11/02/18 15:35 Culture,Blood [BC] Stat Date of Encounter: 11/06/18 Time of Encounter: 07:15 - Discharge Diagnosis (1) Healthcare-associated pneumonia Priority: Primary Status: Acute (2) Sarcoidosis Priority: Secondary Status: Chronic (3) CLL (chronic lymphocytic leukemia) Priority: Secondary Status: Chronic (4) History of pulmonary embolism Priority: Secondary Status: Chronic (5) Presence of tracheostomy Priority: Secondary Status: Acute (6) DVT prophylaxis Priority: Secondary Status: Acute (7) Subtherapeutic international normalized ratio (INR) Priority: Secondary Status: Acute (8) Cardiomyopathy Priority: Secondary Status: Chronic Qualifiers: Cardiomyopathy type: due to sarcoidosis 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 He was found to have bibasilar pneumonia and was treated as HCAP given the recent admission. Clinically improved on IV cefepime with downtrending WBC and sputum culture again grew Serratia sensitive to levofloxacin. He will be completing a total of 10 days of abx with PO [facility]quin [facility]. Thereafter, he is to start steroid burst of PO Prednisone 40mg daily with gradual taper over 6 weeks per Rheumatology. Follow up with ENT for trach care and Rheumatology as outpatient. Discharge discussed with: patient, nurse, case management, nurse consultant - Time Spent with Patient Total time spent providing and/or coordinating discharge services: 33 mins - Discharge Medications Prescriptions: New levoFLOXacin [Levaquin] 750 mg PO DAILY 7 Days #7 tablet Continued Albuterol Sulfate [Proventil Inhaler] 2 puff IH Q4H PRN PRN Reason: Shortness Of Breath Cholecalciferol (Vitamin D3) [Vitamin D3] 1,000 unit PO DAILY #0 Levothyroxine [Synthroid] 75 mcg PO QAM Omeprazole 40 mg PO DAILY #30 tablet. Tramadol HCl [Ultram] 50 mg PO TID PRN PRN Reason: Pain Rosuvastatin [Crestor] 40 mg PO HS Calcium Carbonate/Vitamin D3 [Calcium 500-Vit D3 200 Caplet] 1 each PO DAILY Budesonide/Formoterol 160/4.5 [Symbicort 160/4.5] 2 puff IH BIDR Aspirin 81 mg PO DAILY predniSONE [PredniSONE] 10 mg PO DAILY Erythromycin OPTH Oint 1 appl BOTH EYES DAILY PRN PRN Reason: Dry Eyes Montelukast [Singulair] 10 mg PO DAILY Roflumilast [Daliresp] 250 mcg PO DAILY Warfarin [Coumadin] 4 mg PO QPM Discontinued Cefdinir [Omnicef] 300 mg PO BID #14 capsule Home Medications: Albuterol Sulfate [Proventil Inhaler] 2 puff IH Q4H PRN 08/13/15 [History] Cholecalciferol (Vitamin D3) [Vitamin D3] 1,000 unit PO DAILY #0 08/13/15 [History] Levothyroxine [Synthroid] 75 mcg PO QAM 08/14/15 [History] Omeprazole 40 mg PO DAILY #30 tablet. 08/16/15 [Rx] Aspirin 81 mg PO DAILY 02/21/16 [History] Budesonide/Formoterol 160/4.5 [Symbicort 160/4.5] 2 puff IH BIDR 02/21/16 [History] Calcium Carbonate/Vitamin D3 [Calcium 500-Vit D3 200 Caplet] 1 each PO DAILY 02/21/16 [History] Rosuvastatin [Crestor] 40 mg PO HS 02/21/16 [History] Tramadol HCl [Ultram] 50 mg PO TID PRN 02/21/16 [History] predniSONE [PredniSONE] 10 mg PO DAILY 02/21/16 [History] Erythromycin OPTH Oint 1 appl BOTH EYES DAILY PRN 10/22/18 [History] Montelukast [Singulair] 10 mg PO DAILY 10/22/18 [History] Roflumilast [Daliresp] 250 mcg PO DAILY 10/22/18 [History] Warfarin [Coumadin] 4 mg PO QPM 10/22/18 [History] levoFLOXacin [Levaquin] 750 mg PO DAILY 7 Days #7 tablet 11/06/18 [Rx] Allergies/Adverse Reactions: Allergy/AdvReac Type Severity Reaction Status Date / Time No Known Allergies Allergy Verified 10/22/18 08:28 Date of admission: 11/04/18 16:23 [facility] Consults: 11/02/18 21:01 Consult to Software Configuration Analyst [CONS] Routine Reason for SW Consult: pt has no home health services. Pt is requesting services 11/03/18 10:28 Consult to Rheumatology [CONS] Routine Consulting Provider: Marco Hughes Reason for Consult: diffuse sarcoidosis Call Completed: Yes 11/03/18 11:46 Consult to Occupational Therapy [CONS] Routine Comment: Evaluate, develop and implement POC Reason for Consult: evaluate the need for skilled placement Does patient have active BEDREST order?: No Is patient medically & hemodynamically stable?: Yes Consult to Physical Therapy [CONS] Routine Comment: Evaluate, develop and implement POC Reason for Consult: evaluate the need for skilled placement Does patient have active BEDREST order?: No Is patient medically & hemodynamically stable?: Yes - Constitutional Vitals: Temp Pulse Resp BP Pulse Ox 98 F 78 16 114/79 96 11/06/18 07:22 11/06/18 07:22 11/06/18 07:37 11/06/18 07:22 11/06/18 07:37 General appearance: Present: cooperative, A&O X 3, pleasant, no acute distress, answers questions appropriately Exam: General: Patient is alert, oriented 3. Neck: Tracheostomy tube in situ with minimal amount of yellowish sputum noted at the tip Respiratory: Mild rhonchi at the lung bases right greater than left Cardiovascular: Regular rate and regular rhythm, S1 and S2 audible. No murmurs, rubs, or gallops. GI: Soft, nondistended, normal bowel sounds. Neurological: no focal deficits. - Patient Status Disposition: Transfer Inpatient Rehab Fac Condition: Fair Overall status at discharge: patient is progressing back to baseline - Discharge Instructions Instructions: Tracheostomy Care (DC), Sarcoidosis (DC), Pneumonia (DC), Pacemaker (DC), Hypothyroidism (DC) [facility]: [facility] [Primary Care Provider[facility] - Jeremy Blevins DO [Partnered Physician] - Marco Hughes DO [Partnered Physician] - - Diet and Activity Activity: as per physical therapy Diet: regular diet
--- NOTE | 2018-11-06 08:56 | Physician Discharge Referral ---
ExtendedCare Referral Info Institutional Level of Care: Intermediate - Diagnosis (1) Healthcare-associated pneumonia Priority: Primary Status: Acute (2) Sarcoidosis Priority: Secondary Status: Chronic (3) CLL (chronic lymphocytic leukemia) Priority: Secondary Status: Chronic (4) History of pulmonary embolism Priority: Secondary Status: Chronic (5) Presence of tracheostomy Priority: Secondary Status: Acute (6) DVT prophylaxis Priority: Secondary Status: Acute (7) Subtherapeutic international normalized ratio (INR) Priority: Secondary Status: Acute (8) Cardiomyopathy Priority: Secondary Status: Chronic Prognosis: Fair - Transfer Medications Prescriptions: levoFLOXacin [Levaquin] 750 mg PO DAILY 7 Days #7 tablet Home Medications: Albuterol Sulfate [Proventil Inhaler] 2 puff IH Q4H PRN 08/13/15 [History] Cholecalciferol (Vitamin D3) [Vitamin D3] 1,000 unit PO DAILY #0 08/13/15 [History] Levothyroxine [Synthroid] 75 mcg PO QAM 08/14/15 [History] Omeprazole 40 mg PO DAILY #30 tablet. 08/16/15 [Rx] Aspirin 81 mg PO DAILY 02/21/16 [History] Budesonide/Formoterol 160/4.5 [Symbicort 160/4.5] 2 puff IH BIDR 02/21/16 [History] Calcium Carbonate/Vitamin D3 [Calcium 500-Vit D3 200 Caplet] 1 each PO DAILY 02/21/16 [History] Rosuvastatin [Crestor] 40 mg PO HS 02/21/16 [History] Tramadol HCl [Ultram] 50 mg PO TID PRN 02/21/16 [History] predniSONE [PredniSONE] 10 mg PO DAILY 02/21/16 [History] Erythromycin OPTH Oint 1 appl BOTH EYES DAILY PRN 10/22/18 [History] Montelukast [Singulair] 10 mg PO DAILY 10/22/18 [History] Roflumilast [Daliresp] 250 mcg PO DAILY 10/22/18 [History] Warfarin [Coumadin] 4 mg PO QPM 10/22/18 [History] levoFLOXacin [Levaquin] 750 mg PO DAILY 7 Days #7 tablet 11/06/18 [Rx] Allergies/Adverse Reactions: Allergy/AdvReac Type Severity Reaction Status Date / Time No Known Allergies Allergy Verified 10/22/18 08:28 - Respiratory Orders Other (Suction TID PRN and chest percussion therapy) Smoking Cessation: Smoking cessation has been advised. For more information, call the [place] Tobacco Quit Line at 1-646-CGBJ-NOW. - Advance Directives Code Status: Full Code - Rehabiliation Orders Rehab Orders: Evaluation for Physical Therapy, Evaluation for Occupational Therapy CERTIFICATION: I certify that the transfer of the above named patient to an Extended Care Facility is necessary for the continuing treatment of the diagnosis listed. The above information is true and accurate reflection of patient's current condition. Confidential - Redisclosure prohibited without a patient's written consent.
[2018-11-06] MEDS ORDERED: *HR* Warfarin 4 MG TABLET PO ONE (18:00)
== END 2018-11-06 09:25 | DRG 178 ==
LOC: EMEROOARM 15:00 → 2NENU 15:00 → SUATTDRO 19:32 → 2NENU 20:26 → SUATTDRO 11-04 16:23
PROVIDERS: ADMIT Internal Medicine Nephrology; ATTEND Internal Medicine

== ENCOUNTER 2018-11-14 20:06 | Inpatient (IN) ==
[2018-11-14] MEDS ORDERED: 0.9 % Sodium Chloride 1,000 ML IVC ONE (21:15)
[2018-11-14] MEDS ORDERED: Ondansetron 4 MG/2 ML VIAL IVP ONE (21:15)
[2018-11-14] MEDS ORDERED: Morphine Sulfate 2 MG/ML SYRINGE IVP ONE (21:15)
[2018-11-14] MEDS ORDERED: Isovue-370 500 ML BOTTLE IVP ONE (21:16)
--- NOTE | 2018-11-14 21:20 | Emergency Department Note ---
Disposition Clinical Impression: Hyperbilirubinemia Abdominal pain Qualifiers: Abdominal location: right lower quadrant Qualified Code(s): R10.31 - Right lower quadrant pain Nausea & vomiting Qualifiers: Vomiting type: unspecified Vomiting Intractability: unspecified Qualified Code(s): R11.2 - Nausea with vomiting, unspecified Disposition: Admitted As Inpatient Condition: Fair Time of Disposition: 22:52 Abdominal Pain HPI - General Chief Complaint: ED Abdominal Pain Stated Complaint: ABD PAIN Time Seen by Provider: 11/14/18 21:01 Source: patient Limitations: no limitations Nursing Notes Reviewed: Yes Vital Signs Reviewed: Yes - History of Present Illness HPI Narrative: 73-year-old male presents from outlying facility with abdominal pain with a questionable cholecystitis and the concern a biliary tract CVA. However the pa alvant does have pain and he does not appear to be jaundiced. No fever or chills or sweats. Pt Subjective Complaint: abdominal pain Consistency: intermittent Pain Severity: moderate Pain Scale: 4 Radiation: none Associated symptoms: Reports: nausea, vomiting - Related Data Home Medications Medication Instructions Recorded Confirmed Albuterol Sulfate [Proventil 2 puff IH Q4H PRN 08/13/15 11/15/18 Inhaler] Cholecalciferol (Vitamin D3) 1,000 unit PO DAILY #0 08/13/15 11/15/18 [Vitamin D3] Levothyroxine [Synthroid] 75 mcg PO QAM 08/14/15 11/15/18 Aspirin 81 mg PO DAILY 02/21/16 11/15/18 Budesonide/Formoterol 160/4.5 2 puff IH BIDR 02/21/16 11/15/18 [Symbicort 160/4.5] Calcium Carbonate/Vitamin D3 1 each PO DAILY 02/21/16 11/15/18 [Calcium 500-Vit D3 200 Caplet] Rosuvastatin [Crestor] 40 mg PO HS 02/21/16 11/15/18 predniSONE [PredniSONE] 10 mg PO DAILY 02/21/16 11/15/18 Erythromycin OPTH Oint 1 appl BOTH EYES DAILY PRN 10/22/18 11/15/18 Montelukast [Singulair] 10 mg PO DAILY 10/22/18 11/15/18 Roflumilast [Daliresp] 250 mcg PO DAILY 10/22/18 11/15/18 Warfarin [Coumadin] 4 mg PO QPM 10/22/18 11/15/18 Previous Rx's Medication Instructions Recorded Omeprazole 40 mg PO DAILY #30 tablet. 08/16/15 Allergies Allergy/AdvReac Type Severity Reaction Status Date / Time No Known Allergies Allergy Verified 10/22/18 08:28 All systems ED: reviewed and negative except as stated. Constitutional: Denies: fever, chills, weakness, weight change Eyes: Denies: eye pain, eye discharge, vision change ENT ED: Denies: ear pain, throat pain, dental pain, hearing loss, epistaxis, congestion, dysphagia Cardiovascular: Denies: chest pain, palpitations, dyspnea on exertion, edema, s yncope Respiratory: Denies: cough, dyspnea, wheezes, hemoptysis, stridor Gastrointestinal: Reports: abdominal pain, nausea, vomiting. Denies: diarrhea, constipation, hematemesis, melena, hematochezia Genitourinary: Denies: urgency, dysuria, frequency, hematuria Musculoskeletal: Denies: back pain, neck pain, arthralgia, myalgia Integumentary: Denies: rash, abrasion, lesions Neurological: Denies: headache, weakness, numbness, paresthesias, confusion, abnormal gait, vertigo Psychiatric: Denies: anxiety, depression, suicidal thoughts, homicidal thoughts, auditory hallucinations, visual hallucinations Endocrine: Denies: fatigue Hematological/Lymphatic: Denies: easy bleeding, easy bruising Allergic/Immunologic: Denies: facial swelling, urticaria Abdominal Pain PMH - Past Medical History Medical history: Reports: COPD, hyperlipidemia, pulmonary embolus, thyroid disease, other Male Surgical History: Reports: angioplasty/stent, appendectomy, pacemaker/AICD, Tonsillectomy Psychiatric history: Reports: no psych history - Social History Smoking status: Former smoker Alcohol use: Reports: none Drug use: Reports: none Physical Exam - General Limitations: no limitations General appearance: alert, in no apparent distress - Head Head exam: atraumatic, normocephalic, normal inspection - Eye Eye exam: Present: normal appearance, PERRL, EOMI - Expanded Eye Exam Pupils: Left: reactive - ENT ENT exam: normal exam, normal oropharynx, mucous membranes moist - Expanded ENT Exam External ear exam: Present: normal external inspection Mouth exam: Present: normal external inspection Teeth exam: Present: normal inspection Throat exam: Present: normal inspection - Neck Neck exam: Present: normal inspection, full ROM, trachea midline - Chest Chest inspection: Present: normal inspection, symmetric chest wall rise - Respiratory Respiratory exam: Present: normal lung sounds bilaterally - Cardiovascular Cardiovascular exam: Present: regular rate, normal rhythm, normal heart sounds - Abdominal Exam Abdominal exam: Present: soft, tenderness (Right upper and right lower quadrant without rebound), normal bowel sounds. Absent: distention, guarding, rebound, rigidity - Extremities Exam Extremities exam: Present: normal inspection, full ROM. Absent: tenderness, pedal edema - Expanded Upper Extremity Exam Shoulder exam: Present: normal inspection, full ROM Arm exam: Present: normal inspection, full ROM Elbow exam: Present: normal inspection, full ROM Forearm/Wrist exam: Present: normal inspection, full ROM Hand exam: Present: normal inspection, full ROM Vascular exam: Normal: capillary refill, radial pulse - Expanded Lower Extremity Exam Hip/Pelvis exam: Present: normal inspection, full ROM Upper leg exam: Present: normal inspection, full ROM Knee exam: Present: normal inspection, full ROM Lower leg exam: Present: normal inspection, full ROM Ankle exam: Present: normal inspection, full ROM Foot/toe exam: Present: normal inspection, full ROM Neurovascular/Tendon exam: Absent: motor deficit, sensory deficit, tendon deficit - Back Exam Back exam: Present: normal inspection, full ROM. Absent: tenderness - Neurological Exam Neurological exam: Present: alert, oriented X3 - Expanded Neurological Exam Patient oriented to: Present: person, place, time Coma Scale Eye Opening: Spontaneous Coma Scale Motor Response: Obeys Commands Coma Scale Verbal Response: Oriented Coma Scale Total: 15 - Psychiatric Psychiatric exam: Present: normal affect, normal mood - Skin Skin exam: Present: warm, dry, intact, normal color Course Course Narrative: Patient was placed in examination room. Nurse's notes reviewed. H&P obtained. [facility] 5, ultrasound of the gallbladder demonstrated, bile duct at 4 mm, po lyp and a stone about 1 cm. No inflammation. It was essentially unchanged from previous when he had. He does have a trach was placed on October 22. He has a history of sarcoid. He also has a history of pulmonary embolism. He denies any shortness of breath. She has been nauseated and unable to hold anything down. Last 24 hours. Liver, on Saturday his nausea began and if he would eat something it would just get worse and then developing the pain. Denies any fever chills or sweats. He received morphine at the [facility] and it seemed like it helped as lasted since approximately 5 to 5:30 PM. I will repeat his lab work. It was essentially unremarkable except a [facility] the [facility]. I am going to obtain a CT scan of his abdomen and pelvis as he does have right upper and right lower quadrant pain. I do not appreciate any jaundice or scleral icterus. Vital Signs Temperature 98.6 F 11/14/18 20:13 Pulse Rate 88 11/14/18 20:13 Respiratory Rate 18 11/14/18 20:13 Blood Pressure 114/73 11/14/18 20:13 O2 Sat by Pulse Oximetry 99 11/14/18 20:13 Temperature 98.5 F 11/15/18 06:54 Pulse Rate 84 11/15/18 06:54 Respiratory Rate 14 11/15/18 06:54 Blood Pressure 120/76 11/15/18 06:54 O2 Sat by Pulse Oximetry 97 11/15/18 06:54 Oxygen Delivery Oxygen Delivery Room Air Abdominal Pain - Medical Records Medical records reviewed: Yes I reviewed the patient's medical records. - Lab Data Lab results reviewed: Yes I reviewed the patient's lab results. Result diagrams: 11/14/18 20:59 11/14/18 20:59 Lab Results 11/14/18 11/14/18 11/14/18 Range/Units 20:59 20:59 23:02 WBC 8.5 (4.3-11.1) K/mcL RBC 4.71 (4.19-5.50) M/mcL Hgb 14.0 (12.9-16.9) g/dL Hct 42.6 (37.5-50.1) % MCV 90.4 (83.0-100.0) fL MCH 29.7 (28.0-33.3) pg MCHC 32.9 (31.6-35.5) g/dL RDW 16.2 H (11.5-14.5) % Plt Count 120 L (140-400) K/mcL MPV 9.9 (9.4-12.4) fL Immature Gran % 0.9 (0-4) % Seg Neutrophils % 74.6 % Lymphocytes % 15.7 % Monocytes % 7.1 % Eosinophils % 1.1 % Basophils % 0.6 % Neutrophils # 6.3 (1.6-8.9) K/mcL Lymphocytes # 1.3 (0.6-4.6) K/mcL Monocytes # 0.6 (0.0-1.3) K/mcL Eosinophils # 0.1 (0.0-0.6) K/mcL Basophils # 0.1 (0.0-0.2) K/mcL Sodium 137 (136-145) mEq/L Potassium 3.5 (3.5-5.1) mEq/L Chloride 101 (98-107) mEq/L Carbon Dioxide 22 L (23-29) mEq/L BUN 24 H (8-23) mg/dL Creatinine 0.82 (0.70-1.30) mg/dL Est GFR ( Amer) > 60 (> 60) Est GFR (Non-Af Amer) > 60 (> 60) BUN/Creatinine Ratio 29 H (6-26) Glucose 94 (70-105) mg/dL Calculated Osmolality 288 (280-300) Calcium 8.5 L (8.6-10.3) mg/dL Total Bilirubin 1.5 H (0.3-1.0) mg/dL Direct Bilirubin 0.4 H (0.0-0.2) mg/dL Indirect Bilirubin 1.1 (0.0-1.2) mg/dL AST 22 (13-39) Units/L ALT 25 (7-52) Units/L Alkaline Phosphatase 53 (34-104) Units/L Troponin I < 0.03 (< 0.04) ng/mL Serum Total Protein 5.8 L (6.4-8.9) g/dL Albumin 3.5 (3.5-5.7) g/dL Globulin 2.3 L (2.4-3.5) g/dL Albumin/Globulin Ratio 1.5 (1.1-2.2) Amylase 40 (29-103) Units/L Lipase 45 (11-82) Units/L Urine Color Yellow (Yellow) Urine Clarity Cloudy A (Clear) Urine pH 6.0 (5.0-8.0) pH Units Ur Specific [place] > 1.030 H (1.010-1.025) Urine Protein 100 H (Neg-Trace) mg/dL Urine Glucose (UA) Normal (Normal) mg/dL Urine Ketones 40 H (Negative) mg/dL Urine Blood Small H (Negative) Urine Nitrite Negative (Negative) Urine Bilirubin Small H (Negative) Urine Urobilinogen Normal (Normal) mg/dL Ur Leukocyte Esterase Negative (Negative) Urine Microscopic RBC 3-5 H (0-3) per hpf Urine Microscopic WBC 30-50 H (0-3) per hpf Ur Squamous Epith Cells Many H (None-Few) per lpf Ur Transition Epith Cell Few (None-Few) per hpf Urine Bacteria Few (None-Few) per hpf Hyaline Casts Test Not Performed Urine Mucus Moderate H (Few) Urine Yeast Test Not Performed Ur Culture Indicated? YES A (NO) - Radiology Data Radiology results reviewed: Yes I reviewed the patient's radiology results. Abdomen/Pelvis CT 11/14/18 21:16 IMPRESSION: 1. No evidence to suggest acute cholecystitis. 2. Diverticulosis without scan evidence for diverticulitis. D/ / Rogerio Awan MD / Rogerio Awan MD Interpreting Provider: Rogerio Awan MD
[2018-11-14 21:21] LABS: Basophils # 0.1 K/mcL (0.0-0.2); Basophils % 0.6 %; Eosinophils # 0.1 K/mcL (0.0-0.6); Eosinophils % 1.1 %; Hematocrit 42.6 % (37.5-50.1); Immature Granulocytes % 0.9 % (0-4); Lymphocytes # 1.3 K/mcL (0.6-4.6); Lymphocytes % 15.7 %; Mean Corpuscular HGB Conc 32.9 g/dL (31.6-35.5); Mean Corpuscular Hemoglobin 29.7 pg (28.0-33.3); Mean Corpuscular Volume 90.4 fL (83.0-100.0); Mean Platelet Volume 9.9 fL (9.4-12.4); Monocytes # 0.6 K/mcL (0.0-1.3); Monocytes % 7.1 %; Neutrophils # 6.3 K/mcL (1.6-8.9); Platelet Count 120 K/mcL (140-400); Red Blood Count 4.71 M/mcL (4.19-5.50); Red Cell Distribution Width 16.2 % (11.5-14.5); Segmented Neutrophils % 74.6 %; White Blood Count 8.5 K/mcL (4.3-11.1)
[2018-11-14 21:43] LABS: Alanine Aminotransferase 25 Units/L (7-52); Albumin 3.5 g/dL (3.5-5.7); Albumin/Globulin Ratio 1.5 (1.1-2.2); Alkaline Phosphatase 53 Units/L (34-104); Amylase 40 Units/L (29-103); Aspartate Amino Transferase 22 Units/L (13-39); BUN/Creatinine Ratio 29 (6-26); Bilirubin,Direct 0.4 mg/dL (0.0-0.2); Bilirubin,Indirect 1.1 mg/dL (0.0-1.2); Bilirubin,Total 1.5 mg/dL (0.3-1.0); Blood Urea Nitrogen 24 mg/dL (8-23); Calcium 8.5 mg/dL (8.6-10.3); Carbon Dioxide 22 mEq/L (23-29); Chloride 101 mEq/L (98-107); Globulin 2.3 g/dL (2.4-3.5); Glucose 94 mg/dL (70-105); Lipase 45 Units/L (11-82); Osmolality,Calculated 288 (280-300); Potassium 3.5 mEq/L (3.5-5.1); Sodium 137 mEq/L (136-145); Total Protein 5.8 g/dL (6.4-8.9); eGFR For African Americans > 60 (> 60); eGFR For Non-African Americans > 60 (> 60)
[2018-11-14 21:44] LABS: Troponin I < 0.03 ng/mL (< 0.04)
[2018-11-14 23:15] LABS: Bilirubin,Urine Small (Negative); Blood,Urine Small (Negative); Clarity,Urine Cloudy (Clear); Color,Urine Yellow (Yellow); Glucose,Urine (UA) Normal (Normal); Ketones,Urine 40 mg/dL (Negative); Leukocyte Esterase,Urine Negative (Negative); Nitrite,Urine Negative (Negative); Protein,Urine 100 mg/dL (Neg-Trace); Specific Gravity,Urine > 1.030 (1.010-1.025); Urobilinogen,Urine Normal (Normal)
[2018-11-14 23:22] LABS: Squamous Epithelial Cell,Urine Many per lpf (None-Few); WBC,Urine 30-50 per hpf (0-3)
[2018-11-14 23:33] LABS: Bacteria,Urine Few per hpf (None-Few); Mucus,Urine Moderate (Few)
[2018-11-14 23:34] LABS: Transitional Epi Cells,Urine Few per hpf (None-Few)
[2018-11-15] MEDS ORDERED: Naloxone 0.4 MG/ML INJ IVP PRN (02:51)
--- NOTE | 2018-11-15 05:14 | Internal Med History&Physical ---
Date of Encounter: 11/15/18 Time of Encounter: 03:45 Internal Medicine - H&P: HPI Chief complaint: Right-sided abdominal pain Admitted From: Emergency Dept History of present illness: Mr. Barrera is a 73 year old male Patient presented to the emergency department from the [facility] because of possible gallbladder disease. Patient had initially gone to the [facility] for evaluation of several days history of nausea, vomiting and right upper quadrant abdominal pain. He says that he is had gallbladder problems for over 4 years now, but due to his history of sarcoidosis surgery has been postponed. He was recently in the hospital and treated for pneumonia for which he has has completed treatment with oral antibiotics. He is also on a prednisone taper as well. 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 His right upper quadrant pain has been worsening over the last 3 days, at the [facility] and ultrasound was performed that showed possible common bile duct stone. He was transferred to the [place] emergency department for further evaluation. In the emergency department patient's initial vital signs were within normal limits CBC unremarkable, patient does have chronically low platelet count, currently 120. BMP was within normal limits Total bilirubin elevated at 1.5 chronically elevated in the past INR not checked in the emergency department however at the [facility] it was noted to be 5.0 EKG: Sinus rhythm, rate 85, QTC [address] changes. Abdominal CT showed no evidence of acute cholecystitis. However there is a nondependent 45 mm relatively dense focus in the gallbladder. There is no pericholecystic inflammation. There is also a poorly defined airspace disease in the left lower lobe which seems to have progressed when compared to previous imaging. In the emergency department patient was given 1 L of IV fluids, or milligrams of morphine and Zofran for nausea. He was admitted to the hospital for further evaluation. Upon my evaluation, patient is resting comfortably in the hospital bed in no acute distress. He denies chest pain, diarrhea and constipation. He does have some nausea but this is improving. His right-sided abdominal pain has improved but the initial pain medicine that was given to him starting to wear off he says. He is a full code. Past Med Surg Social Fam HX - Past Medical History Medical history: COPD, hyperlipidemia, pulmonary embolus, thyroid disease, other Additional medical history: PE x2 Psychiatric history: no psych history - Past Surgical History Surgical History: pacemaker/AICD Additional surgical history: 2015-Pacemaker/defibulator , back surgery 3 years ago-broken back, trach 10/22/18 CLL - Social History Smoking Status: Former smoker Smokeless Tobacco Status: No Alcohol use: none Drug use: none - Family History Father Living Status: Hx Family Neurologic Disorders: Yes Mother Living Status: Hx Family Cardiac Disorders: Yes Internal Medicine - H&P: Meds Albuterol Sulfate [Proventil Inhaler] 2 puff IH Q4H PRN 08/13/15 [History] Cholecalciferol (Vitamin D3) [Vitamin D3] 1,000 unit PO DAILY #0 08/13/15 [History] Levothyroxine [Synthroid] 75 mcg PO QAM 08/14/15 [History] Omeprazole 40 mg PO DAILY #30 tablet. 08/16/15 [Rx] Aspirin 81 mg PO DAILY 02/21/16 [History] Budesonide/Formoterol 160/4.5 [Symbicort 160/4.5] 2 puff IH BIDR 02/21/16 [History] Calcium Carbonate/Vitamin D3 [Calcium 500-Vit D3 200 Caplet] 1 each PO DAILY 02/21/16 [History] Rosuvastatin [Crestor] 40 mg PO HS 02/21/16 [History] predniSONE [PredniSONE] 10 mg PO DAILY 02/21/16 [History] Erythromycin OPTH Oint 1 appl BOTH EYES DAILY PRN 10/22/18 [History] Montelukast [Singulair] 10 mg PO DAILY 10/22/18 [History] Roflumilast [Daliresp] 250 mcg PO DAILY 10/22/18 [History] Warfarin [Coumadin] 4 mg PO QPM 10/22/18 [History] Allergy/AdvReac Type Severity Reaction Status Date / Time No Known Allergies Allergy Verified 10/22/18 08:28 All Systems PM: A 10-system review of systems was performed and is negative for pertinent findings except as documented above in the HPI. - Constitutional Vitals: Temp Pulse Resp BP Pulse Ox 98.5 F 73 18 116/79 96 11/15/18 01:57 11/15/18 01:57 11/15/18 01:57 11/15/18 01:57 11/15/18 01:57 General appearance: Present: cooperative (-), A&O X 3, pleasant, no acute distress, answers questions appropriately Exam: - - Head Head exam: Present: normal inspection - Eye Eye exam: Present: EOMI, normal appearance - ENT Additional comments: Tracheostomy tube in place - Respiratory Respiratory exam: Present: CTAB. Absent: rales, respiratory distress, rhonchi, wheezes - Cardiovascular Cardiovascular exam: Present: RRR. Absent: diastolic murmur, systolic murmur - GI/Abdominal GI/Abdominal exam: Present: guarding, normal bowel sounds, tenderness Additional comments: Patient is acutely tender in the right upper quadrant with palpation as well as down in the right lower quadrant. Any sort of pressure causes him immediate pain. - Extremities Exam Extremities exam: Present: warm, radial pulses palpable and symmetrical. Absent: calf tenderness, pedal edema, tenderness - Neurological Exam Neurological exam: Present: no focal deficits, strengths equal and symetr throughout. Absent: motor sensory deficit, facial droop, speech deficit - Skin Skin exam: Present: dry, normal color, warm Internal Med - H&P Results - Labs CBC & Chem 7: 11/14/18 20:59 11/14/18 20:59 Labs: Short CBC 11/14/18 Range/Units 20:59 WBC 8.5 (4.3-11.1) K/mcL Hgb 14.0 (12.9-16.9) g/dL Hct 42.6 (37.5-50.1) % Plt Count 120 L (140-400) K/mcL Neutrophils # 6.3 (1.6-8.9) K/mcL BMP 11/14/18 20:59 Sodium 137 Potassium 3.5 Chloride 101 Carbon Dioxide 22 L BUN 24 H Creatinine 0.82 Glucose 94 Calcium 8.5 L Cardiac Enzymes 11/14/18 Range/Units 20:59 Troponin I < 0.03 (< 0.04) ng/mL Liver Function 11/14/18 Range/Units 20:59 Total Bilirubin 1.5 H (0.3-1.0) mg/dL Direct Bilirubin 0.4 H (0.0-0.2) mg/dL AST 22 (13-39) Units/L ALT 25 (7-52) Units/L Alkaline Phosphatase 53 (34-104) Units/L Albumin 3.5 (3.5-5.7) g/dL Urine 11/14/18 Range/Units 23:02 Urine Color Yellow (Yellow) Urine Clarity Cloudy A (Clear) Urine pH 6.0 (5.0-8.0) pH Units Ur Specific [place] > 1.030 H (1.010-1.025) Urine Protein 100 H (Neg-Trace) mg/dL Urine Glucose (UA) Normal (Normal) mg/dL - Impressions ITS Impressions Abdomen/Pelvis CT 11/14/18 21:16 IMPRESSION: 1. No evidence to suggest acute cholecystitis. 2. Diverticulosis without scan evidence for diverticulitis. D/ / Rogerio Awan MD / Rogerio Awan MD Interpreting Provider: Rogerio Awan MD - Assessment and Plan (1) Right sided abdominal pain Current Visit: Yes Status: Acute Assessment and plan: No obvious signs of cholecystitis or appendicitis on CT scan however patient did have 4-5 mm dense focus in the gallbladder. Patient is tender with palpation to his abdomen. Normal bowel sounds otherwise. Patient also has a positive rebound tenderness as well. He has a long history of gallbladder disease, and previously there has been discussion to have his gallbladder removed. Nothing by mouth Pain management as needed General surgery consult in the morning (2) Nausea & vomiting Current Visit: No Status: Acute Assessment and plan: Improved, continue IV Zofran Qualifiers: Vomiting type: unspecified Vomiting Intractability: unspecified Qualified Code(s): R11.2 - Nausea with vomiting, unspecified (3) Presence of tracheostomy Current Visit: No Status: Acute Assessment and plan: Continue to monitor (4) Supratherapeutic INR Current Visit: No Status: Acute Assessment and plan: Holding further doses of warfarin. May need to give vitamin K or FFP if patient is to go to surgery. Repeat INR Pharmacy to dose (5) Healthcare-associated pneumonia Current Visit: No Status: Acute Assessment and plan: Patient recently treated for healthcare associated pneumonia, and has completed his antibiotic regimen from home. CT from this emergency room visit shows poss ible progression of his lower lung disease. However, patient does not have a white count, he is afebrile and vital signs are stable. Patient does not have a cough and physical exam does not reveal adverse respiratory sounds. We will hold off on antibiotic treatment, continue to monitor. Repeat blood cultures Continue with planned steroid taper once patient cleared by surgery (6) DVT prophylaxis Current Visit: No Status: Acute Assessment and plan: Patient's INR currently supratherapeutic. Repeat INR in the morning Hold Coumadin - Time Spent With Patient Total time spent is greater than 50% in coordination of care (as documented) at patient's floor/unit and/or counseling patient: Greater than 35 minutes
[2018-11-15] MEDS ORDERED: 0.9 % Sodium Chloride 1,000 ML IVC SCH (05:15)
[2018-11-15] MEDS ORDERED: Ondansetron 4 MG/2 ML VIAL IVP PRN (05:22)
[2018-11-15] MEDS ORDERED: *HR* Phytonadione 5 MG TABLET PO ONE (06:54)
[2018-11-15 07:15] LABS: Hematocrit 39.3 % (37.5-50.1); Hemoglobin 12.7 g/dL (12.9-16.9); Mean Corpuscular HGB Conc 32.3 g/dL (31.6-35.5); Mean Corpuscular Hemoglobin 29.6 pg (28.0-33.3); Mean Corpuscular Volume 91.6 fL (83.0-100.0); Mean Platelet Volume 10.1 fL (9.4-12.4); Platelet Count 106 K/mcL (140-400); Red Blood Count 4.29 M/mcL (4.19-5.50); Red Cell Distribution Width 16.3 % (11.5-14.5); White Blood Count 7.9 K/mcL (4.3-11.1)
[2018-11-15 07:37] LABS: INR 5.7; Prothrombin Time 65.3 Seconds (9.4-12.1)
[2018-11-15 07:40] LABS: Alanine Aminotransferase 21 Units/L (7-52); Albumin 3.3 g/dL (3.5-5.7); Albumin/Globulin Ratio 1.7 (1.1-2.2); Alkaline Phosphatase 52 Units/L (34-104); Aspartate Amino Transferase 25 Units/L (13-39); BUN/Creatinine Ratio 27 (6-26); Bilirubin,Total 0.8 mg/dL (0.3-1.0); Blood Urea Nitrogen 21 mg/dL (8-23); Calcium 8.3 mg/dL (8.6-10.3); Carbon Dioxide 23 mEq/L (23-29); Chloride 104 mEq/L (98-107); Glucose 82 mg/dL (70-105); Magnesium 2.2 mg/dL (1.6-2.6); Osmolality,Calculated 286 (280-300); Potassium 3.7 mEq/L (3.5-5.1); Sodium 137 mEq/L (136-145); Total Protein 5.3 g/dL (6.4-8.9); eGFR For African Americans > 60 (> 60); eGFR For Non-African Americans > 60 (> 60)
[2018-11-15] MEDS: Budesonide/Formoterol 160/4.5 1 PUFF INH IH SCH ×2 (07:58→22:16)
[2018-11-15] MEDS ORDERED: ROFLUMILAST 250 MCG PO SCH (09:00)
[2018-11-15] MEDS: Aspirin 81 MG TAB.CHEW PO SCH (09:15)
[2018-11-15] MEDS: Cholecalciferol (D-3) 1,000 UNIT (25MCG) TABLET PO SCH (09:15)
--- NOTE | 2018-11-15 10:04 | AcuteCare Surgery Consult Note ---
Date of Encounter: 11/15/18 Time of Encounter: 08:00 Assessment and Plan (1) Cholelithiasis with chronic cholecystitis without biliary obstruction Current Visit: Yes Status: Acute The patient has symptomatic chronic cholecystitis and cholelithiasis. We would recommend laparoscopic cholecystectomy, cholangiogram. The patient has a coagulopathy secondary to Coumadin therapy. We will proceed with laparoscopic cholecystectomy and cholangiogram once the coagulopathy is been reversed. Qualifiers: Cholelithiasis location: gallbladder Qualified Code(s): K80.10 - Calculus of gallbladder with chronic cholecystitis without obstruction History of Present Illness Consult date: 11/15/18 Reason for consult: abdominal pain History of present illness: The patient is seen and evaluated with the acute care surgery team today. The patient suffers from sarcoidosis. He has significant pulmonary and now vocal cord involvement. He has recently undergone tracheostomy. He is had to general anesthetics in the last several months and tolerated these well. The patient has had multiple episodes of gallbladder disease over the last several years. He has had extensive evaluation by general surgery in [facility]. He is had documentation of cholelithiasis and gallbladder wall thickening. He is had documentation of symptomatic gallbladder disease for over 2 years. Today, the patient complains of right upper quadrant pain as well as nausea. Ultrasound is positive for cholelithiasis. The patient continues to have symptomatic gallbladder disease and would benefit from laparoscopic cholecystectomy. The patient presented with an INR greater than 5. He is on chronic Coumadin therapy for pulmonary embolization history. I have recommended laparoscopic cholecystectomy, cholangiogram after normaliza tion of his coagulation factors. I discussed his care with my hospitalist colleagues and have recommended vitamin K therapy and follow the INR to normalization. We can proceed with laparoscopic cholecystectomy at that time. I would recommend subcutaneous heparin for prophylaxis. DVT prophylaxis dosage should be adequate protection against recurrent deep vein thrombosis Past Med Surg Social Fam HX - Past Medical History Medical history: COPD, hyperlipidemia, pulmonary embolus, thyroid disease, other Additional medical history: PE x2 Psychiatric history: no psych history - Past Surgical History Surgical History: pacemaker/AICD Additional surgical history: 2014-Pacemaker/defibulator , back surgery 3 years ago-broken back, trach 10/22/18 CLL - Social History Smoking Status: Former smoker Smokeless Tobacco Status: No Alcohol use: none Drug use: none - Family History Father Living Status: Hx Family Neurologic Disorders: Yes Mother Living Status: Hx Family Cardiac Disorders: Yes Medications and Allergies Albuterol Sulfate [Proventil Inhaler] 2 puff IH Q4H PRN 08/13/15 [History] Cholecalciferol (Vitamin D3) [Vitamin D3] 1,000 unit PO DAILY #0 08/13/15 [History] Levothyroxine [Synthroid] 75 mcg PO QAM 08/14/15 [History] Omeprazole 40 mg PO DAILY #30 tablet. 08/16/15 [Rx] Aspirin 81 mg PO DAILY 02/21/16 [History] Budesonide/Formoterol 160/4.5 [Symbicort 160/4.5] 2 puff IH BIDR 02/21/16 [Hist ory] Calcium Carbonate/Vitamin D3 [Calcium 500-Vit D3 200 Caplet] 1 each PO DAILY 02/21/16 [History] Rosuvastatin [Crestor] 40 mg PO HS 02/21/16 [History] predniSONE [PredniSONE] 10 mg PO DAILY 02/21/16 [History] Erythromycin OPTH Oint 1 appl BOTH EYES DAILY PRN 10/22/18 [History] Montelukast [Singulair] 10 mg PO DAILY 10/22/18 [History] Roflumilast [Daliresp] 250 mcg PO DAILY 10/22/18 [History] Warfarin [Coumadin] 4 mg PO QPM 10/22/18 [History] Allergy/AdvReac Type Severity Reaction Status Date / Time No Known Allergies Allergy Verified 10/22/18 08:28 Review of Systems All systems PM: The remainder of the systems were reviewed and are negative General Surgery Exam Initial Vital Signs Temp Pulse Resp BP Pulse Ox 98.6 F 88 18 114/73 99 11/14/18 20:13 11/14/18 20:13 11/14/18 20:13 11/14/18 20:13 11/14/18 20:13 - General physical appearance moderate pain, chronically ill, other (Tracheostomy in place) - ENT Other (Functioning tracheostomy.) - Respiratory normal expansion, normal respiratory effort, clear to percussion, clear to auscultation - Cardiovascular Cardiovascular exam: Present: RRR, no murmurs/rubs/gallops - Abdomen Abdomen general surgery: Present: bowel sounds present, soft, non tender - Neurologic Present: CN 2-12 grossly intact, normal coordination, normal sensation - Psychiatric Psychiatric general surgery: Present: appropriate, oriented to person, oriented to place, oriented to time, speech is normal, memory intact Exam Initial Vital Signs Temp Pulse Resp BP Pulse Ox 98.6 F 88 18 114/73 99 11/14/18 20:13 11/14/18 20:13 11/14/18 20:13 11/14/18 20:13 11/14/18 20:13 Results - Labs 11/15/18 06:24 11/15/18 06:24 Abnormal lab results Hgb 12.7 g/dL (12.9-16.9) L 11/15/18 06:24 RDW 16.3 % (11.5-14.5) H 11/15/18 06:24 Plt Count 106 K/mcL (140-400) L 11/15/18 06:24 PT 65.3 Seconds (9.4-12.1) H* 11/15/18 06:24 INR 5.7 H* 11/15/18 06:24 Carbon Dioxide 22 mEq/L (23-29) L 11/14/18 20:59 BUN 24 mg/dL (8-23) H 11/14/18 20:59 BUN/Creatinine Ratio 27 (6-26) H 11/15/18 06:24 Calcium 8.3 mg/dL (8.6-10.3) L 11/15/18 06:24 Total Bilirubin 1.5 mg/dL (0.3-1.0) H 11/14/18 20:59 Direct Bilirubin 0.4 mg/dL (0.0-0.2) H 11/14/18 20:59 Serum Total Protein 5.3 g/dL (6.4-8.9) L 11/15/18 06:24 Albumin 3.3 g/dL (3.5-5.7) L 11/15/18 06:24 Globulin 2.0 g/dL (2.4-3.5) L 11/15/18 06:24 Urine Clarity Cloudy (Clear) A 11/14/18 23:02 Ur Specific [place] > 1.030 (1.010-1.025) H 11/14/18 23:02 Urine Protein 100 mg/dL (Neg-Trace) H 11/14/18 23:02 Urine Ketones 40 mg/dL (Negative) H 11/14/18 23:02 Urine Blood Small (Negative) H 11/14/18 23:02 Urine Bilirubin Small (Negative) H 11/14/18 23:02 Urine Microscopic RBC 3-5 per hpf (0-3) H 11/14/18 23:02 Urine Microscopic WBC 30-50 per hpf (0-3) H 11/14/18 23:02 Ur Squamous Epith Cells Many per lpf (None-Few) H 11/14/18 23:02 Urine Mucus Moderate (Few) H 11/14/18 23:02 Ur Culture Indicated? YES (NO) A 11/14/18 23:02 Diabetes panel 11/14/18 11/15/18 Range/Units 20:59 06:24 Sodium 137 137 (136-145) mEq/L Potassium 3.5 3.7 (3.5-5.1) mEq/L Chloride 101 104 (98-107) mEq/L Carbon Dioxide 22 L 23 (23-29) mEq/L BUN 24 H 21 (8-23) mg/dL Creatinine 0.82 0.79 (0.70-1.30) mg/dL Glucose 94 82 (70-105) mg/dL Calcium 8.5 L 8.3 L (8.6-10.3) mg/dL AST 22 25 (13-39) Units/L ALT 25 21 (7-52) Units/L Alkaline Phosphatase 53 52 (34-104) Units/L Albumin 3.5 3.3 L (3.5-5.7) g/dL Calcium panel 11/14/18 11/15/18 Range/Units 20:59 06:24 Calcium 8.5 L 8.3 L (8.6-10.3) mg/dL Albumin 3.5 3.3 L (3.5-5.7) g/dL Pituitary panel 11/14/18 11/15/18 Range/Units 20:59 06:24 Sodium 137 137 (136-145) mEq/L Potassium 3.5 3.7 (3.5-5.1) mEq/L Chloride 101 104 (98-107) mEq/L Carbon Dioxide 22 L 23 (23-29) mEq/L BUN 24 H 21 (8-23) mg/dL Creatinine 0.82 0.79 (0.70-1.30) mg/dL Glucose 94 82 (70-105) mg/dL Calcium 8.5 L 8.3 L (8.6-10.3) mg/dL Adrenal panel 11/14/18 11/15/18 Range/Units 20:59 06:24 Sodium 137 137 (136-145) mEq/L Potassium 3.5 3.7 (3.5-5.1) mEq/L Chloride 101 104 (98-107) mEq/L Carbon Dioxide 22 L 23 (23-29) mEq/L BUN 24 H 21 (8-23) mg/dL Creatinine 0.82 0.79 (0.70-1.30) mg/dL Glucose 94 82 (70-105) mg/dL Calcium 8.5 L 8.3 L (8.6-10.3) mg/dL Total Bilirubin 1.5 H 0.8 (0.3-1.0) mg/dL AST 22 25 (13-39) Units/L ALT 25 21 (7-52) Units/L Alkaline Phosphatase 53 52 (34-104) Units/L Albumin 3.5 3.3 L (3.5-5.7) g/dL All other labs normal. Consult Discharge Plan - Plan [facility]errals: [facility] [Primary Care Provider] -
--- NOTE | 2018-11-15 10:25 | Event Note ---
Date of Encounter: 11/15/18 Time of Encounter: 08:30 H&P reviewed. 73-year-old male with history of CLL, sarcoidosis with recent admission for vocal cord paralysis leading to trach placement complicated by HCAP, PE, was admitted due to cholelithiasis with chronic cholecystitis. Also has supratherapeutic INR of 5.7. Vit K 5mg given this morning and tentatively plan for surgery once INR is reversed. On steroid for sarcoidosis. Daily INR
[2018-11-16 07:08] LABS: INR 3.4; Prothrombin Time 38.2 Seconds (9.4-12.1)
[2018-11-16 07:25] LABS: Alanine Aminotransferase 19 Units/L (7-52); Albumin 3.5 g/dL (3.5-5.7); Albumin/Globulin Ratio 1.5 (1.1-2.2); Alkaline Phosphatase 56 Units/L (34-104); Aspartate Amino Transferase 24 Units/L (13-39); BUN/Creatinine Ratio 22 (6-26); Bilirubin,Total 0.9 mg/dL (0.3-1.0); Blood Urea Nitrogen 14 mg/dL (8-23); Calcium 8.5 mg/dL (8.6-10.3); Carbon Dioxide 22 mEq/L (23-29); Chloride 101 mEq/L (98-107); Globulin 2.3 g/dL (2.4-3.5); Glucose 92 mg/dL (70-105); Osmolality,Calculated 282 (280-300); Potassium 3.3 mEq/L (3.5-5.1); Sodium 136 mEq/L (136-145); Total Protein 5.8 g/dL (6.4-8.9); eGFR For African Americans > 60 (> 60); eGFR For Non-African Americans > 60 (> 60)
--- NOTE | 2018-11-16 07:35 | AcuteCareSurgery Progress Note ---
Date of Encounter: 11/16/18 Time of Encounter: 07:00 - Assessment and Plan (1) Cholelithiasis with chronic cholecystitis without biliary obstruction Current Visit: Yes Status: Acute We will plan laparoscopic cholecystectomy with his coagulopathy is fully reversed. There is no need to proceed on an emergent basis. Hopefully we will be able to proceed with laparoscopic cholecystectomy tomorrow. He will require further treatment of his coagulopathy Qualifiers: Cholelithiasis location: gallbladder Qualified Code(s): K80.10 - Calculus of gallbladder with chronic cholecystitis without obstruction Subjective Narrative: The patient is seen and evaluated on morning rounds with the acute care surgery team. He remains symptomatic with right upper quadrant discomfort. Unfortunately his INR is still elevated at 3.4. He will require further correction of his coagulopathy prior to cholecystectomy. He will be placed on clear liquids today. Please have the patient nothing by mouth after midnight. We will try to proceed with cholecystectomy tomorrow if his INR is below 2.0 Objective Vital Signs - Last 8 Hours Temp Pulse Resp BP Pulse Ox 11/16/18 06:50 98.0 F 85 22 109/76 99 11/16/18 03:59 97.8 F 95 18 121/81 99 Intake and Output 11/15/18 11/15/18 11/16/18 15:59 23:59 07:59 Intake Total 935 / 1055 120 / 1055 0 / 0 Output Total 200 / 750 300 / 750 275 / 275 Balance 735 / 305 -180 / 305 -275 / -275 Intake: IV Fluids 735 / 735 0.9 % Sodium Chloride 1,000 ML 735 / 735 @ 125 mls/hr IVC .Q8H WENDY Rx#: [id number] Oral 200 / 320 120 / 320 0 / 0 Output: Urine 200 / 750 300 / 750 275 / 275 Other: Meal Breakfast Dinner Percent of Meal Consumed 25% 10% Weight 88.2 kg Blood Glucose* 107 Patient Weight 11/16/18 23:59 Weight 88.2 kg - General physical appearance well developed, well nourished, moderate pain - Respiratory crackles: bilateral - Cardiovascular Cardiovascular exam: Present: RRR, no murmurs/rubs/gallops - Abdomen Abdomen: Present: bowel sounds present (Tenderness in the right upper quadrant is mild with no involuntary guarding or rebound), tender Abdominal Tenderness: RUQ - Neurologic CN 2-12 grossly intact, normal coordination, normal sensation - Psychiatric oriented to time, oriented to person, oriented to place, speech is normal, memory intact - Labs 11/15/18 06:24 11/16/18 05:55 Diabetes panel 11/15/18 11/16/18 Range/Units 06:24 05:55 Sodium 137 136 (136-145) mEq/L Potassium 3.7 3.3 L (3.5-5.1) mEq/L Chloride 104 101 (98-107) mEq/L Carbon Dioxide 23 22 L (23-29) mEq/L BUN 21 14 (8-23) mg/dL Creatinine 0.79 0.65 L (0.70-1.30) mg/dL Glucose 82 92 (70-105) mg/dL Calcium 8.3 L 8.5 L (8.6-10.3) mg/dL AST 25 24 (13-39) Units/L ALT 21 19 (7-52) Units/L Alkaline Phosphatase 52 56 (34-104) Units/L Albumin 3.3 L 3.5 (3.5-5.7) g/dL Calcium panel 11/15/18 11/16/18 Range/Units 06:24 05:55 Calcium 8.3 L 8.5 L (8.6-10.3) mg/dL Albumin 3.3 L 3.5 (3.5-5.7) g/dL Pituitary panel 11/15/18 11/16/18 Range/Units 06:24 05:55 Sodium 137 136 (136-145) mEq/L Potassium 3.7 3.3 L (3.5-5.1) mEq/L Chloride 104 101 (98-107) mEq/L Carbon Dioxide 23 22 L (23-29) mEq/L BUN 21 14 (8-23) mg/dL Creatinine 0.79 0.65 L (0.70-1.30) mg/dL Glucose 82 92 (70-105) mg/dL Calcium 8.3 L 8.5 L (8.6-10.3) mg/dL Adrenal panel 11/15/18 11/16/18 Range/Units 06:24 05:55 Sodium 137 136 (136-145) mEq/L Potassium 3.7 3.3 L (3.5-5.1) mEq/L Chloride 104 101 (98-107) mEq/L Carbon Dioxide 23 22 L (23-29) mEq/L BUN 21 14 (8-23) mg/dL Creatinine 0.79 0.65 L (0.70-1.30) mg/dL Glucose 82 92 (70-105) mg/dL Calcium 8.3 L 8.5 L (8.6-10.3) mg/dL Total Bilirubin 0.8 0.9 (0.3-1.0) mg/dL AST 25 24 (13-39) Units/L ALT 21 19 (7-52) Units/L Alkaline Phosphatase 52 56 (34-104) Units/L Albumin 3.3 L 3.5 (3.5-5.7) g/dL Consult Discharge Plan - Plan [facility]errals: [facility] [Primary Care Provider] -
[2018-11-16] MEDS: Budesonide/Formoterol 160/4.5 1 PUFF INH IH SCH ×2 (08:09→19:42)
--- NOTE | 2018-11-16 08:10 | Internal Med Progress Note ---
Hospitalist Progress Note - Encounter Date of Encounter: 11/16/18 Time of Encounter: 08:10 - Subjective Interval History: Assessment and examined this morning . No acute overnight events. Complains of right-sided abdominal pain. Denies any nausea vomiting. Denies any difficulty breathing or chest pain. - Exam Vitals: Temp Pulse Resp BP Pulse Ox 98.0 F 85 22 109/76 99 11/16/18 06:50 11/16/18 06:50 11/16/18 06:50 11/16/18 06:50 11/16/18 06:50 Exam: - - Assessment and Plan (1) Nausea & vomiting Current Visit: Yes Status: Acute (2) Supratherapeutic INR Current Visit: No Status: Acute (3) Presence of tracheostomy Current Visit: No Status: Acute (4) DVT prophylaxis Current Visit: No Status: Acute (5) Healthcare-associated pneumonia Current Visit: No Status: Acute (6) Right sided abdominal pain Current Visit: Yes Status: Acute - Summary of Assessment and Plan Summary of Assessment and Plan: Assessment Acute Cholelithiasis with chronic cholecystitis without biliary obstruction Supratherapeutic INR Chronic recently treated HCAP H/o PE sarcoidosis hypothyroidism h/o Trachesotomy for vocal cord paralysis pacemaker/aicd copd Plan - No obvious signs of acute cholecystitis or appendicitis on CT scan however patient did have 4-5 mm dense focus in the gallbladder. Patient is tender with palpation to his abdomen. Surgery following . Recommendations appreciated. Plan for Surgery if INR continues to decrease and below 2 per surgery. c/w symptomatic management. On clear liquid diet per surgery. - did receive dose of vitamin K. INR decreasing and expect to continue to decrease. No indication for vit K or FFP. hold warfarin for now. - c/w prednisonE for sarcoidosis. recently had trachesotomy for vocal cord paralysis from sarcoid. Hasnt followed with rheumatology yet. Will need outpatient follow up. - EPCD for dvt ppx - Time Spent with Patient Total time spent is greater than 50% in coordination of care (as documented) at patient's floor/unit and/or counseling patient: Internal Medicine: Result - Labs CBC & Chem 7: 11/15/18 06:24 11/16/18 05:55 Labs: BMP 11/16/18 05:55 Sodium 136 Potassium 3.3 L Chloride 101 Carbon Dioxide 22 L BUN 14 Creatinine 0.65 L Glucose 92 Calcium 8.5 L Liver Function 11/16/18 Range/Units 05:55 Total Bilirubin 0.9 (0.3-1.0) mg/dL AST 24 (13-39) Units/L ALT 19 (7-52) Units/L Alkaline Phosphatase 56 (34-104) Units/L Albumin 3.5 (3.5-5.7) g/dL - ABG Interpretation ABG results: PT/INR, D-dimer PT 38.2 Seconds (9.4-12.1) H 11/16/18 05:55 Consult Discharge Plan - Plan [facility]errals: [facility] [Primary Care Provider] - (1) Nausea & vomiting Qualifiers: Vomiting type: unspecified Vomiting Intractability: unspecified Qualified Code(s): R11.2 - Nausea with vomiting, unspecified
[2018-11-16] MEDS: predniSONE 10 MG TABLET PO SCH (09:17)
[2018-11-16] MEDS: Aspirin 81 MG TAB.CHEW PO SCH (09:17)
[2018-11-16] MEDS: Cholecalciferol (D-3) 1,000 UNIT (25MCG) TABLET PO SCH (09:18)
[2018-11-17 05:16] LABS: INR 2.9; Prothrombin Time 33.1 Seconds (9.4-12.1)
[2018-11-17 05:17] LABS: BUN/Creatinine Ratio 19 (6-26); Blood Urea Nitrogen 13 mg/dL (8-23); Calcium 8.8 mg/dL (8.6-10.3); Carbon Dioxide 27 mEq/L (23-29); Chloride 100 mEq/L (98-107); Glucose 100 mg/dL (70-105); Osmolality,Calculated 280 (280-300); Potassium 3.5 mEq/L (3.5-5.1); Sodium 135 mEq/L (136-145); eGFR For African Americans > 60 (> 60); eGFR For Non-African Americans > 60 (> 60)
[2018-11-17] MEDS: Budesonide/Formoterol 160/4.5 1 PUFF INH IH SCH ×2 (07:17→19:59)
[2018-11-17] MEDS: Cholecalciferol (D-3) 1,000 UNIT (25MCG) TABLET PO SCH (08:31)
[2018-11-17] MEDS: Aspirin 81 MG TAB.CHEW PO SCH (08:32)
[2018-11-17] MEDS: predniSONE 10 MG TABLET PO SCH (08:32)
[2018-11-17] MEDS ORDERED: *HR* Phytonadione 5 MG TABLET PO ONE ×2 (08:56→09:04)
--- NOTE | 2018-11-17 09:11 | Electrocardiograph Report ---
[place] [id number] Test Date: 2018-11-15 Pat Name: Sam Barrrea Department: EXAM2 Room: 3A15 Gender: M Dietary Manager: : [id number] Requested By: [id number] Order Number: [id number] Reading MD: Daniel Bello Measurements Intervals [place] Rate: 85 P: 22 AL: 146 QRS: 46 QRSD: 92 T: 57 QT: 381 QTc: 453 Interpretive Statements Sinus rhythm PACs and a PVC Electronically Signed On 11-17-2018 9:10:05 EDT by Daniel Bello
--- NOTE | 2018-11-17 09:58 | AcuteCareSurgery Progress Note ---
Date of Encounter: 11/17/18 Time of Encounter: 07:00 - Assessment and Plan (1) Cholelithiasis with chronic cholecystitis without biliary obstruction Current Visit: Yes Status: Acute Pt with symptomatic cholelithiasis is stable. Cholecystitis is not progressing to acute. Lap jesenia is recommended and planned. However, pt continues to have an elevated INR despite treatment x 1 dose Vit K. Will give another dose today. Pt may have clears until MN. If INR in am is still elevated will give FFP and proceed with surgery as scheduled. Pt is agreeable to this plan. Qualifiers: Cholelithiasis location: gallbladder Qualified Code(s): K80.10 - Calculus of gallbladder with chronic cholecystitis without obstruction (2) Subtherapeutic international normalized ratio (INR) Current Visit: No Status: Acute (3) COPD (chronic obstructive pulmonary disease) Current Visit: No Status: Chronic Qualifiers: COPD type: unspecified COPD Qualified Code(s): J44.9 - Chronic obstructive pulmonary disease, unspecified (4) History of pulmonary embolism Current Visit: No Status: Chronic Subjective Patient reports: feels better, still having pain, tolerating liquids well, flatus, no bowel movement, afebrile Objective Vital Signs - Last 8 Hours Temp Pulse Resp BP Pulse Ox 11/17/18 07:18 18 100 11/17/18 07:13 97.4 F L 54 22 128/81 100 11/17/18 02:19 97.5 F L 72 18 137/82 100 Intake and Output 11/16/18 11/17/18 11/17/18 23:59 07:59 15:59 Intake Total 480 / 1320 Output Total 250 / 525 700 / 700 Balance 230 / 795 -700 / -700 Intake: Oral 480 / 1320 Output: Urine 250 / 525 700 / 700 Other: Meal NPO Blood Glucose* 85 - General physical appearance no distress, moderate pain (improved) - Eyes PERRL, normal ocular movement - ENT no congestion, dry mucosa - Neck Neck exam: trachea midline, no venous distension - Respiratory normal respiratory effort, clear to auscultation - Cardiovascular Cardiovascular exam: Present: RRR. Absent: JVD - Abdomen Abdomen: Present: bowel sounds present, tender. Absent: distended - Neurologic CN 2-12 grossly intact, normal coordination - Musculoskeletal normal posture - Psychiatric oriented to time, oriented to person, oriented to place - Labs 11/15/18 06:24 11/17/18 04:33 Diabetes panel 11/17/18 Range/Units 04:33 Sodium 135 L (136-145) mEq/L Potassium 3.5 (3.5-5.1) mEq/L Chloride 100 (98-107) mEq/L Carbon Dioxide 27 (23-29) mEq/L BUN 13 (8-23) mg/dL Creatinine 0.68 L (0.70-1.30) mg/dL Glucose 100 (70-105) mg/dL Calcium 8.8 (8.6-10.3) mg/dL Calcium panel 11/17/18 Range/Units 04:33 Calcium 8.8 (8.6-10.3) mg/dL Pituitary panel 11/17/18 Range/Units 04:33 Sodium 135 L (136-145) mEq/L Potassium 3.5 (3.5-5.1) mEq/L Chloride 100 (98-107) mEq/L Carbon Dioxide 27 (23-29) mEq/L BUN 13 (8-23) mg/dL Creatinine 0.68 L (0.70-1.30) mg/dL Glucose 100 (70-105) mg/dL Calcium 8.8 (8.6-10.3) mg/dL Adrenal panel 11/17/18 Range/Units 04:33 Sodium 135 L (136-145) mEq/L Potassium 3.5 (3.5-5.1) mEq/L Chloride 100 (98-107) mEq/L Carbon Dioxide 27 (23-29) mEq/L BUN 13 (8-23) mg/dL Creatinine 0.68 L (0.70-1.30) mg/dL Glucose 100 (70-105) mg/dL Calcium 8.8 (8.6-10.3) mg/dL Consult Discharge Plan - Plan Referrals: [facility] [Primary Care Provider] -
--- NOTE | 2018-11-17 10:51 | Internal Med Progress Note ---
Hospitalist Progress Note - Encounter Date of Encounter: 11/17/18 Time of Encounter: 10:51 - Subjective Interval History: Patient seen and examined this morning at bedside. No acute overnight events. Denies new complaints. Slightly upset that surgery would not be able to be done today. Denies any chest pain or difficulty breathing. denies abdominal tenderness. - Exam Vitals: Temp Pulse Resp BP Pulse Ox 97.4 F L 54 18 128/81 100 11/17/18 07:13 11/17/18 07:13 11/17/18 07:18 11/17/18 07:13 11/17/18 07:18 Exam: General: In no acute distress. Respiratory exam: CTAB. no accessory muscle use, rales, rhonchi, wheezes, has tracheostomy in place, Cardiovascular exam: RRR, +S1, +S2. no murmur, gallop, rubs. GI/Abdominal exam: minimal RUQ tenderness, Non-distended, soft, no peritoneal signs. Extremities exam: no pedal edema, pulses palpable in b/l lower extremities. no calf tenderness Neurological exam: CN II-XII intact, AO X3, no focal deficits. Skin exam: No skin rash - Assessment and Plan (1) Nausea & vomiting Current Visit: Yes Status: Acute (2) Supratherapeutic INR Current Visit: No Status: Acute (3) Presence of tracheostomy Current Visit: No Status: Acute (4) DVT prophylaxis Current Visit: No Status: Acute (5) Healthcare-associated pneumonia Current Visit: No Status: Acute (6) Right sided abdominal pain Current Visit: Yes Status: Acute - Summary of Assessment and Plan Summary of Assessment and Plan: Assessment Acute Cholelithiasis with chronic cholecystitis without biliary obstruction Supratherapeutic INR Chronic recently treated HCAP H/o PE sarcoidosis hypothyroidism h/o Trachesotomy for vocal cord paralysis pacemaker/aicd copd Plan - No obvious signs of acute cholecystitis or appendicitis on CT scan however patient with symptomatic cholelithiasis. Surgery following. Recommendations appreciated. Plan for Surgery once INR <2 per surgery. INR still elevated. Agrees with Vitamin K to plan for surgery tommorrow. If still elevated will give FFP before surgery tomorrow. c/w symptomatic management. c/w clear liquid diet per surgery. Hold coumadin for now. Blood cultures and urine cx with NGTD. - c/w prednisone for sarcoidosis. recently had trachesotomy for vocal cord paralysis from sarcoid. Hasnt followed with rheumatology yet. Will need outpatient follow up. - c/w home singulair, symbicort and prn albuterol - c/w home synthroid - EPCD for dvt ppx Internal Medicine: Result - Labs CBC & Chem 7: 11/15/18 06:24 11/17/18 04:33 Labs: BMP 11/17/18 04:33 Sodium 135 L Potassium 3.5 Chloride 100 Carbon Dioxide 27 BUN 13 Creatinine 0.68 L Glucose 100 Calcium 8.8 - ABG Interpretation ABG results: PT/INR, D-dimer PT 33.1 Seconds (9.4-12.1) H 11/17/18 04:33 Consult Discharge Plan - Plan [facility]errals: [facility] [Primary Care Provider] - (1) Nausea & vomiting Qualifiers: Vomiting type: unspecified Vomiting Intractability: unspecified Qualified Code(s): R11.2 - Nausea with vomiting, unspecified
--- NOTE | 2018-11-17 15:02 | Anesthesia Evaluation PreOp ---
Date of Encounter: 11/17/18 Time of Encounter: 15:00 - Past History Planned Operation: lap jesenia Cardiac History: HTN, Hyperlipidemia, Pacemaker/ICD (2015), Other (PE x 2) Pulmonary History: Former smoker, COPD [employer] History: Denies Any Significant HX Other Medical History: Thyroid Anesthesia History: No Prior Anesthetic Complications, Past Anesthesia (back sx, AICD, trach) Alcohol Use: none Drug use: none Medications and Allergies Albuterol Sulfate [Proventil Inhaler] 2 puff IH Q4H PRN 08/13/15 [History] Cholecalciferol (Vitamin D3) [Vitamin D3] 1,000 unit PO DAILY #0 08/13/15 [History] Levothyroxine [Synthroid] 75 mcg PO QAM 08/14/15 [History] Omeprazole 40 mg PO DAILY #30 tablet. 08/16/15 [Rx] Aspirin 81 mg PO DAILY 02/21/16 [History] Budesonide/Formoterol 160/4.5 [Symbicort 160/4.5] 2 puff IH BIDR 02/21/16 [History] Calcium Carbonate/Vitamin D3 [Calcium 500-Vit D3 200 Caplet] 1 each PO DAILY 02/21/16 [History] Rosuvastatin [Crestor] 40 mg PO HS 02/21/16 [History] predniSONE [PredniSONE] 10 mg PO DAILY 02/21/16 [History] Erythromycin OPTH Oint 1 appl BOTH EYES DAILY PRN 10/22/18 [History] Montelukast [Singulair] 10 mg PO DAILY 10/22/18 [History] Roflumilast [Daliresp] 250 mcg PO DAILY 10/22/18 [History] Warfarin [Coumadin] 4 mg PO QPM 10/22/18 [History] Allergy/AdvReac Type Severity Reaction Status Date / Time No Known Allergies Allergy Verified 11/15/18 12:40 - Meds/Allergy Pre-op Review Medications Reviewed: Yes Allergies Reviewed: Yes Beta Blockers on Current Med List: No Anesthesia Results - Labs 11/15/18 06:24 11/17/18 04:33
--- NOTE | 2018-11-17 18:40 | Anesthesia Evaluation PreOp ---
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 08/16/15 [Rx] Aspirin 81 mg PO DAILY 02/21/16 [History] Budesonide/Formoterol 160/4.5 [Symbicort 160/4.5] 2 puff IH BIDR 02/21/16 [History] Calcium Carbonate/Vitamin D3 [Calcium 500-Vit D3 200 Caplet] 1 each PO DAILY 02/21/16 [History] Rosuvastatin [Crestor] 40 mg PO HS 02/21/16 [History] predniSONE [PredniSONE] 10 mg PO DAILY 02/21/16 [History] Erythromycin OPTH Oint 1 appl BOTH EYES DAILY PRN 10/22/18 [History] Montelukast [Singulair] 10 mg PO DAILY 10/22/18 [History] Roflumilast [Daliresp] 250 mcg PO DAILY 10/22/18 [History] Warfarin [Coumadin] 4 mg PO QPM 10/22/18 [History] Allergy/AdvReac Type Severity Reaction Status Date / Time No Known Allergies Allergy Verified 11/15/18 12:40 - Meds/Allergy Pre-op Review Medications Reviewed: Yes Allergies Reviewed: Yes Anesthesia Results - Labs 11/15/18 06:24 11/17/18 04:33 Laboratory Tests 11/17/18 04:33 PT 33.1 H INR 2.9 Anesthesia Exam Vital Signs/O2 Sat/Glucose, Most Recent Temp Pulse Resp BP Pulse Ox 98.3 F 79 18 131/86 97 11/17/18 15:05 11/17/18 15:05 11/17/18 15:05 11/17/18 15:05 11/17/18 15:05 Blood Glucose* 85 Weight: 88 KG - BMI 26 NPO (# of Hours): 8 - HEENT Mallampati: I Teeth: Normal - Cardiac Rhythm: Regular - Pulmonary Breath Sounds: bilateral Clear - Additional Findings 8.0 NON CUFFED TRACH TUBE Anesthesia Assess/Plan ASA Score: 3 Anesthetic Plan: General Monitoring Plan: Standard Monitors Recovery Plan: PACU Anes Supervising Prov Stmt: TRACH EXCHANGE TO CUFFED BEFORE INDUCTION.
[2018-11-18 04:03] LABS: INR 1.8; Prothrombin Time 20.4 Seconds (9.4-12.1)
[2018-11-18] MEDS ORDERED: cefOXitin 1,000 MG, 0.9 % Sodium Chloride 1,000 ML IR ONE ×2 (06:00→16:04)
[2018-11-18] MEDS: Budesonide/Formoterol 160/4.5 1 PUFF INH IH SCH ×2 (07:57→20:39)
[2018-11-18] MEDS: Aspirin 81 MG TAB.CHEW PO SCH (09:11)
[2018-11-18] MEDS: predniSONE 10 MG TABLET PO SCH (09:11)
[2018-11-18] MEDS: Cholecalciferol (D-3) 1,000 UNIT (25MCG) TABLET PO SCH (09:11)
--- NOTE | 2018-11-18 12:29 | Internal Med Progress Note ---
Hospitalist Progress Note - Encounter Date of Encounter: 11/18/18 Time of Encounter: 09:26 - Subjective Interval History: Reason seen and examined this morning at bedside. No acute overnight events. Denies any chest pain, difficulty breathing, nausea vomiting or diarrhea. Has mild right sided abdominal tenderness. Denies any fever or chills. - Exam Vitals: Temp Pulse Resp BP Pulse Ox 97.7 F 82 16 105/55 96 11/18/18 12:20 11/18/18 12:20 11/18/18 12:20 11/18/18 12:20 11/18/18 12:20 Exam: General: In no acute distress. Respiratory exam: CTAB. no accessory muscle use, rales, rhonchi, wheezes, has tracheostomy in place, Cardiovascular exam: RRR, +S1, +S2. no murmur, gallop, rubs. GI/Abdominal exam: minimal RUQ tenderness, Non-distended, soft, no peritoneal signs. Extremities exam: no pedal edema, pulses palpable in b/l lower extremities. no calf tenderness Neurological exam: CN II-XII intact, AO X3, no focal deficits. Skin exam: No skin rash - Assessment and Plan (1) Nausea & vomiting Current Visit: Yes Status: Acute (2) Supratherapeutic INR Current Visit: No Status: Acute (3) Presence of tracheostomy Current Visit: No Status: Acute (4) DVT prophylaxis Current Visit: No Status: Acute (5) Healthcare-associated pneumonia Current Visit: No Status: Acute (6) Right sided abdominal pain Current Visit: Yes Status: Acute - Summary of Assessment and Plan Summary of Assessment and Plan: Assessment Acute Cholelithiasis with chronic cholecystitis without biliary obstruction Supratherapeutic INR Chronic recently treated HCAP H/o PE sarcoidosis hypothyroidism h/o Trachesotomy for vocal cord paralysis pacemaker/aicd copd Plan - No obvious signs of acute cholecystitis or appendicitis on CT scan however patient with symptomatic cholelithiasis with Rt abdominal tenderness. Surgery following. Plan for Surgery today as INR 1.8. Hold coumadin for now. Blood cultures and urine cx with NGTD. - c/w prednisone for sarcoidosis. recently had trachesotomy for vocal cord paralysis from sarcoid. Hasnt followed with rheumatology yet. Will need outpatient follow up. - c/w home singulair, symbicort and prn albuterol - c/w home synthroid - EPCD for dvt ppx Internal Medicine: Result - Labs CBC & Chem 7: 11/15/18 06:24 11/17/18 04:33 - ABG Interpretation ABG results: PT/INR, D-dimer PT 20.4 Seconds (9.4-12.1) H 11/18/18 03:38 Consult Discharge Plan - Plan [facility] Provider[facility] - (1) Nausea & vomiting Qualifiers: Vomiting type: unspecified Vomiting Intractability: unspecified Qualified Code(s): R11.2 - Nausea with vomiting, unspecified
[2018-11-18] MEDS ORDERED: *HR* Propofol 200 MG/20 ML VIAL IVP ONE (12:49)
[2018-11-18] MEDS ORDERED: *HR* FentaNYL (PF) 100 MCG/2 ML VIAL ONE ×2 (12:49→13:56)
[2018-11-18] MEDS ORDERED: Lidocaine -MPF 2% 2 ML VIAL ONE (12:49)
[2018-11-18] MEDS ORDERED: *HR* Rocuronium Bromide 50 MG/5 ML VIAL ONE (12:49)
[2018-11-18] MEDS ORDERED: Isovue-300 50 ML VIAL ONE (13:00)
[2018-11-18] MEDS ORDERED: *HR* Promethazine 25 MG/ML VIAL IVP PRN ×2 (13:13→16:04)
[2018-11-18] MEDS ORDERED: *HR* Labetalol 20 MG/4 ML SYRINGE IVP PRN (13:13)
[2018-11-18] MEDS ORDERED: Ondansetron 4 MG/2 ML VIAL IVP ONE (13:13)
[2018-11-18] MEDS ORDERED: CefOXitin 2,000 MG VIAL ONE (13:29)
[2018-11-18] MEDS ORDERED: cefOXitin 2,000 MG in Water for inj. (sterile) 20 ML IVP ONE (13:53)
[2018-11-18] MEDS ORDERED: Acetaminophen IV 1,000 MG/100 ML INFUS..BTL ONE (14:13)
--- NOTE | 2018-11-18 14:30 | Operative Note ---
Date of procedure: 11/18/18 Pre-op diagnosis: Cholelithiasis and chronic cholecystitis Post-op diagnosis: same Procedure: Laparoscopic cholecystectomy, cholangiogram Anesthesia: GWYN Surgeon: Arthur Salvador Was there an nurse practitioner physicians assistant present: No Estimated blood loss (cc): 20 Specimen: Gallbladder and contents Condition: stable Disposition: PACU Procedure in Detail: Laparoscopic cholecystectomy and intraoperative cholangiogram Operative procedure: after informed consent and appropriate patient identification, the patient was taken to the major operating suite and placed supine position and given adequate general endotracheal anesthesia. The abdomen was prepped and draped in sterile fashion utilizing ChloraPrep standard draping techniques. Timeout was taken and the patient was identified. I made a vertical midline incision below the umbilicus and dissected down to level of fascia. I placed 2 traction stitches of 0 vicryl in the midline fascia and the abdominal cavity was entered visually. A Solis trocar was placed in the abdomen and the abdomen was insufflated to 15 mmHg pressure CO2. The gallbladder was visualized. I placemed an 11 port in the subxiphoid area and two 5 mm ports in the subcostal area. The gallbladder was grasped and elevated. A variety of blunt and sharp dissection techniques were used to isolate the cystic duct and cystic artery. The cystic artery was controlled with 2 surgical clips proximally and one distally and it was divided. I placed a surgical clip on the neck the gallbladder and obtained an intraoperative cholangiogram using 10 mL of Isovue. Intraoperative cholangiogram was normal. The cholangiocatheter was removed and the cystic duct was controlled with 2 surgical clips proximally and was divided. The gallbladder was removed from the gallbladder fossae using electrocautery. The gallbladder was removed from the abdomen through the #11 port site using a specimen bag. I replaced the #11 port and irrigated with copious amounts of antibiotic containing solution. There was no evidence of bleeding or bile leak. All trochars were removed. Fascia was closed with 0 Vicryl and the skin with 2-0 and 4-0 Vicryl. He tolerated the procedure well and was transferred to recovery in stable condition
[2018-11-18] MEDS: *HR* HYDROmorphone (PF) 1 MG/ML SYRINGE IVP PRN ×3 (14:52→15:02)
[2018-11-18] MEDS ORDERED: Ringers Solution, Lactated 1,000 ML ONE (15:27)
--- NOTE | 2018-11-18 15:29 | Anesthesia Evaluation Post Op ---
Date of Encounter: 11/18/18 Time of Encounter: 15:30 - Vital Signs Vital Signs: Vital Signs/O2 Sat/Glucose, Most Current Temp Pulse Resp BP Pulse Ox 11/18/18 15:13 99.0 F 67 18 98/74 95 11/18/18 15:03 75 17 103/73 96 11/18/18 14:53 75 22 115/91 99 11/18/18 14:43 98.4 F 76 18 125/77 98 11/18/18 12:20 97.7 F 82 16 105/55 96 - Lungs Lungs: Clear Ascult./Percussion - Airway Airway: Non-obstructed - Cardiovascular Regular Rate - Mental Status Mental Status: Alert & Oriented, Answers Appropriately - Pain Pain Scale: 0 - Nausea Vomiting Nausea Vomiting: Not Present - Hydration Hydration: NPO - Discharge PostOp Status: Transfer Patient to floor
[2018-11-18] MEDS ORDERED: Ondansetron 4 MG/2 ML VIAL IVP PRN (16:04)
[2018-11-18] MEDS ORDERED: Naloxone 0.4 MG/ML INJ IVP PRN (16:04)
[2018-11-19 05:44] LABS: BUN/Creatinine Ratio 15 (6-26); Blood Urea Nitrogen 13 mg/dL (8-23); Carbon Dioxide 30 mEq/L (23-29); Chloride 98 mEq/L (98-107); Glucose 126 mg/dL (70-105); Osmolality,Calculated 290 (280-300); Potassium 3.6 mEq/L (3.5-5.1); Sodium 139 mEq/L (136-145); eGFR For African Americans > 60 (> 60); eGFR For Non-African Americans > 60 (> 60)
--- NOTE | 2018-11-19 08:32 | AcuteCareSurgery Progress Note ---
Date of Encounter: 11/19/18 Time of Encounter: 08:30 - Assessment and Plan (1) Hyperbilirubinemia Current Visit: Yes Status: Acute s/p Lap CCY with cholangiogram. Patient doing well. From our standpoint the patient to be advanced to a regular diet and can be discharged from a surgical perspective. Patient will follow with acute care surgery in 2 weeks. We will sign off; thank you very much. Subjective Patient reports: no new complaints, other (No nausea or vomiting. Doing well.) Objective Vital Signs - Last 8 Hours Temp Pulse Resp BP Pulse Ox 11/19/18 07:04 97.5 F L 67 16 101/47 91 11/19/18 04:27 97.6 F 64 17 96/51 96 Intake and Output 11/18/18 11/19/18 11/19/18 23:59 07:59 15:59 Output Total 200 / 1010 2375 / 2375 Balance -200 / -990 -2375 / -2375 Output: Urine 200 / 1000 2375 / 2375 Other: # Voids 1 - General physical appearance well nourished, no distress (d) - Abdomen Abdomen: Present: soft, tender (mild incisional pain) - Labs 11/15/18 06:24 11/19/18 04:24 Diabetes panel 11/19/18 Range/Units 04:24 Sodium 139 (136-145) mEq/L Potassium 3.6 (3.5-5.1) mEq/L Chloride 98 (98-107) mEq/L Carbon Dioxide 30 H (23-29) mEq/L BUN 13 (8-23) mg/dL Creatinine 0.87 (0.70-1.30) mg/dL Glucose 126 H (70-105) mg/dL Calcium 9.0 (8.6-10.3) mg/dL Calcium panel 11/19/18 Range/Units 04:24 Calcium 9.0 (8.6-10.3) mg/dL Pituitary panel 11/19/18 Range/Units 04:24 Sodium 139 (136-145) mEq/L Potassium 3.6 (3.5-5.1) mEq/L Chloride 98 (98-107) mEq/L Carbon Dioxide 30 H (23-29) mEq/L BUN 13 (8-23) mg/dL Creatinine 0.87 (0.70-1.30) mg/dL Glucose 126 H (70-105) mg/dL Calcium 9.0 (8.6-10.3) mg/dL Adrenal panel 11/19/18 Range/Units 04:24 Sodium 139 (136-145) mEq/L Potassium 3.6 (3.5-5.1) mEq/L Chloride 98 (98-107) mEq/L Carbon Dioxide 30 H (23-29) mEq/L BUN 13 (8-23) mg/dL Creatinine 0.87 (0.70-1.30) mg/dL Glucose 126 H (70-105) mg/dL Calcium 9.0 (8.6-10.3) mg/dL Consult Discharge Plan - Plan Instructions: Laparoscopic Cholecystectomy (DC) Additional Instructions: General Surgical Discharge Instructions 1. No pushing, pulling, or lifting greater than 15 lbs for 4 weeks. 2. You may remove your dressings and shower beginning today, but no tub baths, soaking, or swimming for 2 weeks. 3. No driving for one weeks unless otherwise specified and then you may resume driving when you are off narcotics and are safe to react in a car. 4. Apply ice 20 minutes every hour that you are awake to your abdomen and Take ibuprofen every 8 hours for discomfort. If this does not relieve discomfort, you may take the as needed Percocet. Eat a small snack with pain medication as this will help reduce the risk of nausea. Take narcotics as directed. Do not take more narcotics then directed and do not share your narcotics with any other person. Do not drink alcohol while on narcotics. You can take the Zofran/ondansetron if needed for nausea or with a dose of narcotics to prevent nausea. 5. Take stool softeners (Colace) or a water based laxative (Miralax) while taking narcotics. You may hold for loose stools. 6. Report any fevers greater than 100.5F, increase abdominal discomfort, drai nage that looks like pus, increased redness or pain at the surgical site, or any vomiting. 7. Report any pain in the calves, shortness of breath, or rapid heartbeat. 8. Follow-up in the office as directed. 9. If you were prescribed antibiotics, do not stop them without talking to your provider. Referrals: Arthur Salvador MD [Partnered Physician] - 12/09/18 9:00 am [facility] Care Provider[facility] -
[2018-11-19] MEDS ORDERED: Cholecalciferol (D-3) 1,000 UNIT (25MCG) TABLET PO SCH (09:00)
[2018-11-19] MEDS ORDERED: Aspirin 81 MG TAB.CHEW PO SCH (09:00)
[2018-11-19] MEDS ORDERED: predniSONE 10 MG TABLET PO SCH (09:00)
[2018-11-19] MEDS: Budesonide/Formoterol 160/4.5 1 PUFF INH IH SCH (09:59)
--- NOTE | 2018-11-19 11:52 | Discharge Summary ---
- NOTES TO OUTPATIENT PROVIDER Notes to Outpatient Provider: Patient will need follow-up for INR for therapeutic monitoring, as Coumadin was held for surgery and now resumed. Orders not resulted at time of discharge: Pending orders 11/15/18 06:24 Blood Culture [Culture,Blood] [BC] Routine 11/18/18 14:06 Surgical Pathology [PTH] Stat Date of Encounter: 11/19/18 Time of Encounter: 11:50 - Discharge Diagnosis (1) Nausea & vomiting Priority: Primary Status: Acute Qualifiers: Vomiting type: unspecified Vomiting Intractability: unspecified Qualified Code(s): R11.2 - Nausea with vomiting, unspecified (2) Supratherapeutic INR Priority: Secondary Status: Acute (3) Presence of tracheostomy Priority: Secondary Status: Acute (4) DVT prophylaxis Priority: Secondary Status: Acute (5) Cholelithiasis with chronic cholecystitis without biliary obstruction Priority: Primary Status: Acute Qualifiers: Cholelithiasis location: gallbladder Qualified Code(s): K80.10 - Calculus of gallbladder with chronic cholecystitis without obstruction (6) History of pulmonary embolism Priority: Secondary Status: Chronic (7) Hypothyroid Priority: Secondary Status: Chronic Qualifiers: Hypothyroidism type: unspecified Qualified Code(s): E03.9 - Hypothyroidism, unspecified (8) Sarcoidosis Priority: Secondary Status: Chronic Hospital course: Mr. Barrera is a 73 year old male with past medical history of COPD, pulmonary embolus, hypothyroidism, sarcoidosis came in from [facility] due to possible gallbladder disease as he complained of right-sided abdominal pain and nausea and vomiting.. Patient was recently discharged after healthcare associated pneumonia treatment and tracheostomy for vocal cord paralysis. This was also found to have supratherapeutic INR from his Coumadin dosing for history of PE. Patient was seen by surgery who recommended cholecystectomy for symptomatic cholelithiasis and chronic cholecystitis. Patient was given vitamin K to reverse the effect or INR. As his INR decreased to less than 2 patient had laparoscopic cholecystectomy. Patient tolerated the procedure well without any complication. Patient feeling well and without any complaints. He stable to be discharged from surgical and medical point of the back to rehabilitation. He will resume his home Coumadin and will need INR follow-up in 3 days. Discharge discussed with: patient, nurse, bridal sales consultant - Time Spent with Patient Total time spent providing and/or coordinating discharge services: Time spent: Greater than 30 minutes (40) - Discharge Medications Prescriptions: Continued Albuterol Sulfate [Proventil Inhaler] 2 puff IH Q4H PRN PRN Reason: Shortness Of Breath Cholecalciferol (Vitamin D3) [Vitamin D3] 1,000 unit PO DAILY #0 Levothyroxine [Synthroid] 75 mcg PO QAM Omeprazole 40 mg PO DAILY #30 tablet. Rosuvastatin [Crestor] 40 mg PO HS Calcium Carbonate/Vitamin D3 [Calcium 500-Vit D3 200 Caplet] 1 each PO DAILY Budesonide/Formoterol 160/4.5 [Symbicort 160/4.5] 2 puff IH BIDR Aspirin 81 mg PO DAILY predniSONE [PredniSONE] 10 mg PO DAILY Erythromycin OPTH Oint 1 appl BOTH EYES DAILY PRN PRN Reason: Dry Eyes Montelukast [Singulair] 10 mg PO DAILY Roflumilast [Daliresp] 250 mcg PO DAILY Warfarin [Coumadin] 4 mg PO QPM Home Medications: Albuterol Sulfate [Proventil Inhaler] 2 puff IH Q4H PRN 08/13/15 [History] Cholecalciferol (Vitamin D3) [Vitamin D3] 1,000 unit PO DAILY #0 08/13/15 [History] Levothyroxine [Synthroid] 75 mcg PO QAM 08/14/15 [History] Omeprazole 40 mg PO DAILY #30 tablet. 08/16/15 [Rx] Aspirin 81 mg PO DAILY 02/21/16 [History] Budesonide/Formoterol 160/4.5 [Symbicort 160/4.5] 2 puff IH BIDR 02/21/16 [History] Calcium Carbonate/Vitamin D3 [Calcium 500-Vit D3 200 Caplet] 1 each PO DAILY 02/21/16 [History] Rosuvastatin [Crestor] 40 mg PO HS 02/21/16 [History] predniSONE [PredniSONE] 10 mg PO DAILY 02/21/16 [History] Erythromycin OPTH Oint 1 appl BOTH EYES DAILY PRN 10/22/18 [History] Montelukast [Singulair] 10 mg PO DAILY 10/22/18 [History] Roflumilast [Daliresp] 250 mcg PO DAILY 10/22/18 [History] Warfarin [Coumadin] 4 mg PO QPM 10/22/18 [History] Allergies/Adverse Reactions: Allergy/AdvReac Type Severity Reaction Status Date / Time No Known Allergies Allergy Verified 11/15/18 12:40 Date of admission: 11/17/18 14:10 Primary care physician: PCP [facility] Consults: 11/15/18 01:50 Consult to Nutrition [CONS] Routine Comment: Consulting Provider: NUTRITION Reason for Dietary Consult: MST Score 11/15/18 06:48 Consult to Surgery [CONS] Routine Consulting Provider: Acute Care Surgery Reason for Consult: Right sided abdominal pain Call Completed: Yes 11/16/18 10:48 Consult to Physical Therapy [CONS] Routine Comment: Evaluate, develop and implement POC Reason for Consult: eval and treat. Was at [facility] for rehab prior to this admission. Does patient have active BEDREST order?: No Is patient medically & hemodynamically stable?: Yes 11/16/18 10:49 Consult to Occupational Therapy [CONS] Routine Comment: Evaluate, develop and implement POC Reason for Consult: Eval and treat. Was at [facility] for rehab prior to admission. Does patient have active BEDREST order?: No Is patient medically & hemodynamically stable?: Yes 11/17/18 10:46 Consult to Career Coordinator [CONS] Routine Reason for SW Consult: From [facility] ready Discharging clinician: Mikki Penny - Constitutional Vitals: Temp Pulse Resp BP Pulse Ox 97.5 F L 67 16 101/47 92 11/19/18 07:04 11/19/18 07:04 11/19/18 09:59 11/19/18 07:04 11/19/18 09:59 Exam: General: In no acute distress. Respiratory exam: CTAB. no accessory muscle use, rales, rhonchi, wheezes, has tracheostomy in place, Cardiovascular exam: RRR, +S1, +S2. no murmur, gallop, rubs. GI/Abdominal exam: minimal RUQ/RLQ tenderness, Non-distended, soft, no peritoneal signs. Extremities exam: no pedal edema, pulses palpable in b/l lower extremities. no calf tenderness Neurological exam: CN II-XII intact, AO X3, no focal deficits. Skin exam: No skin rash - Patient Status Disposition: Transfer SNF Condition: Fair - Discharge Instructions Instructions: Laparoscopic Cholecystectomy (DC) Follow Up With: Arthur Salvador MD [Partnered Physician] - 12/09/18 9:00 am [facility] - Additional Instructions: General Surgical Discharge Instructions 1. No pushing, pulling, or lifting greater than 15 lbs for 4 weeks. 2. You may remove your dressings and shower beginning today, but no tub baths, soaking, or swimming for 2 weeks. 3. No driving for one weeks unless otherwise specified and then you may resume driving when you are off narcotics and are safe to react in a car. 4. Apply ice 20 minutes every hour that you are awake to your abdomen and Take ibuprofen every 8 hours for discomfort. If this does not relieve discomfort, you may take the as needed Percocet. Eat a small snack with pain medication as this will help reduce the risk of nausea. Take narcotics as directed. Do not take more narcotics then directed and do not share your narcotics with any other person. Do not drink alcohol while on narcotics. You can take the Zofran/ondansetron if needed for nausea or with a dose of narcotics to prevent nausea. 5. Take stool softeners (Colace) or a water based laxative (Miralax) while taking narcotics. You may hold for loose stools. 6. Report any fevers greater than 100.5F, increase abdominal discomfort, drainage that looks like pus, increased redness or pain at the surgical site, or any vomiting. 7. Report any pain in the calves, shortness of breath, or rapid heartbeat. 8. Follow-up in the office as directed. 9. If you were prescribed antibiotics, do not stop them without talking to your provider. - Diet and Activity Activity: as per physical therapy
--- NOTE | 2018-11-19 12:00 | Physician Discharge Referral ---
[facility] Referral Info Institutional Level of Care: Skilled - Diagnosis (1) Nausea & vomiting Status: Acute (2) Supratherapeutic INR Status: Acute (3) Presence of tracheostomy Status: Acute (4) DVT prophylaxis Status: Acute (5) Cholelithiasis with chronic cholecystitis without biliary obstruction Status: Acute (6) History of pulmonary embolism Status: Chronic (7) Hypothyroid Status: Chronic (8) Sarcoidosis Status: Chronic - Transfer Medications Home Medications: Albuterol Sulfate [Proventil Inhaler] 2 puff IH Q4H PRN 08/13/15 [History] Cholecalciferol (Vitamin D3) [Vitamin D3] 1,000 unit PO DAILY #0 08/13/15 [History] Levothyroxine [Synthroid] 75 mcg PO QAM 08/14/15 [History] Omeprazole 40 mg PO DAILY #30 tablet. 08/16/15 [Rx] Aspirin 81 mg PO DAILY 02/21/16 [History] Budesonide/Formoterol 160/4.5 [Symbicort 160/4.5] 2 puff IH BIDR 02/21/16 [History] Calcium Carbonate/Vitamin D3 [Calcium 500-Vit D3 200 Caplet] 1 each PO DAILY 02/21/16 [History] Rosuvastatin [Crestor] 40 mg PO HS 02/21/16 [History] predniSONE [PredniSONE] 10 mg PO DAILY 02/21/16 [History] Erythromycin OPTH Oint 1 appl BOTH EYES DAILY PRN 10/22/18 [History] Montelukast [Singulair] 10 mg PO DAILY 10/22/18 [History] Roflumilast [Daliresp] 250 mcg PO DAILY 10/22/18 [History] Warfarin [Coumadin] 4 mg PO QPM 10/22/18 [History] Allergies/Adverse Reactions: Allergy/AdvReac Type Severity Reaction Status Date / Time No Known Allergies Allergy Verified 11/15/18 12:40 - Respiratory Orders Smoking Cessation: Smoking cessation has been advised. For more information, call the [place] Tobacco Quit Line at 1-718-XZZP-NOW. - Lab Orders Lab Orders: Other (include drug levels w/frequency) - Treatments List/Other: Will need INR testing in 2-3 days CERTIFICATION: I certify that the transfer of the above named patient to an Extended Care Facility is necessary for the continuing treatment of the diagnosis listed. The above information is true and accurate reflection of patient's current co ndition. Confidential - Redisclosure prohibited without a patient's written consent.
[2018-11-19 12:11] VITALS: BP 104/69
== END 2018-11-19 14:16 | DRG 419 ==
LOC: EMEROOARM 20:06 → 3ANU 20:06 → SUATTDRO 11-15 00:10 → 3ANU 11-15 01:34
PROVIDERS: ADMIT Internal Medicine; ATTEND Internal Medicine

== ENCOUNTER 2018-12-01 14:58 | Inpatient (IN) ==
[2018-12-01] MEDS ORDERED: Isovue-370 500 ML BOTTLE IVP ONE (15:17)
[2018-12-01] MEDS ORDERED: 0.9 % Sodium Chloride 1,000 ML IVC ONE (15:19)
[2018-12-01] MEDS ORDERED: *HR* Promethazine 25 MG/ML VIAL IVP ONE (15:19)
[2018-12-01 15:52] LABS: Basophils % 0.4 %; Eosinophils % 0.1 %; Hematocrit 42.8 % (37.5-50.1); Hemoglobin 13.9 g/dL (12.9-16.9); Immature Granulocytes % 0.5 % (0-4); Lymphocytes # 0.7 K/mcL (0.6-4.6); Lymphocytes % 7.6 %; Mean Corpuscular HGB Conc 32.5 g/dL (31.6-35.5); Mean Corpuscular Hemoglobin 29.4 pg (28.0-33.3); Mean Corpuscular Volume 90.5 fL (83.0-100.0); Mean Platelet Volume 9.6 fL (9.4-12.4); Monocytes # 0.4 K/mcL (0.0-1.3); Monocytes % 3.6 %; Neutrophils # 8.5 K/mcL (1.6-8.9); Platelet Count 215 K/mcL (140-400); Red Blood Count 4.73 M/mcL (4.19-5.50); Segmented Neutrophils % 87.8 %; White Blood Count 9.7 K/mcL (4.3-11.1)
--- NOTE | 2018-12-01 16:01 | Emergency Department Note ---
Disposition Clinical Impression: Sarcoidosis, Dehydration, Hypokalemia Abdominal pain Qualifiers: Abdominal location: epigastric Qualified Code(s): R10.13 - Epigastric pain Nausea & vomiting Qualifiers: Vomiting type: bilious vomiting Qualified Code(s): R11.14 - Bilious vomiting Disposition: Admitted As Inpatient Condition: Fair Time of Disposition: 17:37 Nausea/Vomiting/Diarrhea HPI - General Chief complaint: ED Nausea/Vomiting/Diarrhea Stated complaint: flu like symptoms Time Seen by Provider: 12/01/18 15:14 Source: patient, EMS Mode of arrival: EMS Limitations: no limitations Nursing Notes Reviewed: Yes Vital Signs Reviewed: Yes - History of Present Illness HPI Narrative: 73M with PMHx of sarcoidosis, status post tracheostomy placement on 10/18 and cholecystectomy on 11/24 who presents to the emergency department as a transfer [place] the [place] for worsening abdominal pain, nausea and vomiting. Patient states that he has had these symptoms since the trach was placed and has lost approximately 30 pounds over the past 6 weeks. He states he has not been able to keep any food down but has been able to keep his medications down. He states that his abdominal pain is somewhat improved since the cholecystectomy but he is still having epigastric pain which is worse with eating and tender to palpation. He states the abdominal pain was initially lower in his abdomen but is not migrated to his epigastric area. He is on Protonix and Carafate to help with his abdominal pain and he is scheduled to have an endoscopy with Dr. Salvador tomorrow. Patient denies fever, chills, chest pain, increased shortness of breath, dysuria. He has had some constipation and decreased stool output which he relates to his decreased oral intake. - Related Data Home Medications Medication Instructions Recorded Confirmed Cholecalciferol (Vitamin D3) 1,000 unit PO DAILY #0 08/13/15 12/01/18 [Vitamin D3] Levothyroxine [Synthroid] 75 mcg PO QAM 08/14/15 12/01/18 Budesonide/Formoterol 160/4.5 2 puff IH BIDR 02/21/16 12/01/18 [Symbicort 160/4.5] Rosuvastatin [Crestor] 40 mg PO HS 02/21/16 12/01/18 predniSONE [PredniSONE] 10 mg PO DAILY 02/21/16 12/01/18 Erythromycin OPTH Oint 1 appl BOTH EYES HS 10/22/18 12/01/18 Montelukast [Singulair] 10 mg PO HS 10/22/18 12/01/18 Roflumilast [Daliresp] 500 mcg PO DAILY 10/22/18 12/01/18 Warfarin [Coumadin] 4 mg PO SUTUTHSA 10/22/18 12/01/18 Guaifenesin [Mucus Relief] 400 mg PO TID 12/01/18 12/01/18 Ipratropium/Albuterol Neb [Duoneb] 3 ml IH QID PRN 12/01/18 12/01/18 Miconazole 2% cream [Michelle 1 appl TP BID 12/01/18 12/01/18 Antifungal] Ondansetron [Zofran] 4 mg IVP QID PRN 12/01/18 12/01/18 Pantoprazole Sodium [Protonix IV] 40 mg IVP Q12H 12/01/18 12/01/18 Potassium Chloride [K-Tab ER] 20 meq PO DAILY 12/01/18 12/01/18 Sennosides/Docusate Sodium [Senna 1 each PO BID 12/01/18 12/01/18 Plus 8.6-50 mg Tablet] Sucralfate [Carafate] 1 gm PO QIDAC 12/01/18 12/01/18 Warfarin [Coumadin] 3 mg PO MOWEFR 12/01/18 12/01/18 Allergies Allergy/AdvReac Type Severity Reaction Status Date / Time No Known Allergies Allergy Verified 11/15/18 12:40 All systems ED: reviewed and negative except as stated. Review of Systems: As Per HPI Constitutional: Denies: fever, chills, weakness Cardiovascular: Denies: chest pain, palpitations, dyspnea on exertion Respiratory: Reports: dyspnea. Denies: cough, wheezes Gastrointestinal: Reports: abdominal pain, nausea, vomiting, constipation. Denies: hematemesis, melena, hematochezia Musculoskeletal: Denies: back pain, neck pain Neurological: Denies: headache Endocrine: Reports: fatigue Past Medical History - Past Medical History Attestation: Yes The following information was validated with the patient. Source: patient Medical history: Reports: COPD, hyperlipidemia, pulmonary embolus, thyroid d isease, other Surgical history: Reports: pacemaker/AICD Psychiatric history: Reports: no psych history - Social History Smoking Status: Former smoker Smokeless Tobacco Status: No Alcohol use: Reports: none Drug use: Reports: none Physical Exam - General Limitations: no limitations General appearance: alert, in no apparent distress - Head Head exam: atraumatic, normocephalic - Eye Eye exam: Present: normal appearance, EOMI - Neck Neck exam: Present: other (trach present without drainage or signs of infection) - Chest Chest inspection: Present: normal inspection. Absent: tenderness - Respiratory Respiratory exam: Present: normal lung sounds bilaterally - Cardiovascular Cardiovascular exam: Present: regular rate, normal rhythm - Abdominal Exam Abdominal exam: Present: soft, tenderness. Absent: distention, guarding, rebound, rigidity, Velazquez's sign, tenderness at McBurney's Point Abdominal tenderness: Present: RUQ, epigastrium, moderate - Extremities Exam Extremities exam: Present: normal inspection. Absent: tenderness, pedal edema - Neurological Exam Neurological exam: Present: alert, oriented X3 - Psychiatric Psychiatric exam: Present: normal affect, normal mood - Skin Skin exam: Present: warm, dry, intact Course Vital Signs Temperature 99.0 F 12/01/18 15:03 Pulse Rate 91 12/01/18 15:03 Respiratory Rate 17 12/01/18 15:03 Blood Pressure 116/85 12/01/18 15:03 O2 Sat by Pulse Oximetry 97 12/01/18 15:03 Temperature 99.0 F 12/01/18 15:03 Pulse Rate 91 12/01/18 15:03 Respiratory Rate 17 12/01/18 15:03 Blood Pressure 116/85 12/01/18 15:03 O2 Sat by Pulse Oximetry 97 12/01/18 15:03 Oxygen Delivery Oxygen Delivery Room Air Nausea/Vomiting/Diarrhea - MDM Narrative Medical decision making narrative: Patient presents to the emergency department as a transfer for abdominal pain, nausea and vomiting for which she has an endoscopy scheduled with Dr. Salvador here tomorrow. We will obtain basic labs, EKG, urinalysis and a CT scan of the patient's abdomen. We will administer Phenergan for his nausea and plan on admission for his endoscopy tomorrow. 1700 - pts labs are wnl with the exception of some hypokalemia. Potassium will be replaced. Imaging shows BL pleural effusions but no acute abdominal path ology. Pt will be admitted for further GI workup and endoscopy by Dr. Salvador. [id number] - patient has been accepted to the hospital by Dr. Penny - Medical Records Medical records reviewed: Yes I reviewed the patient's medical records. - Lab Data Lab results reviewed: Yes I reviewed the patient's lab results. Result diagrams: 12/05/18 03:15 12/05/18 15:06 Lab Results 12/01/18 12/01/18 12/01/18 Range/Units 15:32 15:32 15:32 WBC 9.7 (4.3-11.1) K/mcL RBC 4.73 (4.19-5.50) M/mcL Hgb 13.9 (12.9-16.9) g/dL Hct 42.8 (37.5-50.1) % MCV 90.5 (83.0-100.0) fL MCH 29.4 (28.0-33.3) pg MCHC 32.5 (31.6-35.5) g/dL RDW 16.0 H (11.5-14.5) % Plt Count 215 (140-400) K/mcL MPV 9.6 (9.4-12.4) fL Immature Gran % 0.5 (0-4) % Seg Neutrophils % 87.8 % Lymphocytes % 7.6 % Monocytes % 3.6 % Eosinophils % 0.1 % Basophils % 0.4 % Neutrophils # 8.5 (1.6-8.9) K/mcL Lymphocytes # 0.7 (0.6-4.6) K/mcL Monocytes # 0.4 (0.0-1.3) K/mcL Eosinophils # 0.0 (0.0-0.6) K/mcL Basophils # 0.0 (0.0-0.2) K/mcL Sodium 140 (136-145) mEq/L Potassium 2.9 L (3.5-5.1) mEq/L Chloride 106 (98-107) mEq/L Carbon Dioxide 27 (23-29) mEq/L BUN 5 L (8-23) mg/dL Creatinine 0.92 (0.70-1.30) mg/dL Est GFR ( Amer) > 60 (> 60) Est GFR (Non-Af Amer) > 60 (> 60) BUN/Creatinine Ratio 5 L (6-26) Glucose 128 H (70-105) mg/dL Calculated Osmolality 289 (280-300) Lactic Acid 1.3 (0.5-2.2) mmol/L Calcium 8.3 L (8.6-10.3) mg/dL Total Bilirubin 1.5 H (0.3-1.0) mg/dL Direct Bilirubin 0.5 H (0.0-0.2) mg/dL Indirect Bilirubin 1.0 (0.0-1.2) mg/dL AST 23 (13-39) Units/L ALT 14 (7-52) Units/L Alkaline Phosphatase 69 (34-104) Units/L Troponin I < 0.03 (< 0.04) ng/mL Serum Total Protein 5.3 L (6.4-8.9) g/dL Albumin 3.2 L (3.5-5.7) g/dL Globulin 2.1 L (2.4-3.5) g/dL Albumin/Globulin Ratio 1.5 (1.1-2.2) Lipase 30 (11-82) Units/L Urine Color (Yellow) Urine Clarity (Clear) Urine pH (5.0-8.0) pH Units Ur Specific [place] (1.010-1.025) Urine Protein (Neg-Trace) mg/dL Urine Glucose (UA) (Normal) mg/dL Urine Ketones (Negative) mg/dL Urine Blood (Negative) Urine Nitrite (Negative) Urine Bilirubin (Negative) Urine Urobilinogen (Normal) mg/dL Ur Leukocyte Esterase (Negative) Urine Microscopic RBC (0-3) per hpf Urine Microscopic WBC (0-3) per hpf Ur Squamous Epith Cells (None-Few) per lpf Urine Bacteria (None-Few) per hpf Hyaline Casts (None-Few) per lpf Ur Culture Indicated? (NO) 12/01/18 Range/Units 16:52 WBC (4.3-11.1) K/mcL RBC (4.19-5.50) M/mcL Hgb (12.9-16.9) g/dL Hct (37.5-50.1) % MCV (83.0-100.0) fL MCH (28.0-33.3) pg MCHC (31.6-35.5) g/dL RDW (11.5-14.5) % Plt Count (140-400) K/mcL MPV (9.4-12.4) fL Immature Gran % (0-4) % Seg Neutrophils % % Lymphocytes % % Monocytes % % Eosinophils % % Basophils % % Neutrophils # (1.6-8.9) K/mcL Lymphocytes # (0.6-4.6) K/mcL Monocytes # (0.0-1.3) K/mcL Eosinophils # (0.0-0.6) K/mcL Basophils # (0.0-0.2) K/mcL Sodium (136-145) mEq/L Potassium (3.5-5.1) mEq/L Chloride (98-107) mEq/L Carbon Dioxide (23-29) mEq/L BUN (8-23) mg/dL Creatinine (0.70-1.30) mg/dL Est GFR ( Amer) (> 60) Est GFR (Non-Af Amer) (> 60) BUN/Creatinine Ratio (6-26) Glucose (70-105) mg/dL Calculated Osmolality (280-300) Lactic Acid (0.5-2.2) mmol/L Calcium (8.6-10.3) mg/dL Total Bilirubin (0.3-1.0) mg/dL Direct Bilirubin (0.0-0.2) mg/dL Indirect Bilirubin (0.0-1.2) mg/dL AST (13-39) Units/L ALT (7-52) Units/L Alkaline Phosphatase (34-104) Units/L Troponin I (< 0.04) ng/mL Serum Total Protein (6.4-8.9) g/dL Albumin (3.5-5.7) g/dL Globulin (2.4-3.5) g/dL Albumin/Globulin Ratio (1.1-2.2) Lipase (11-82) Units/L Urine Color Yellow (Yellow) Urine Clarity Clear (Clear) Urine pH 7.5 (5.0-8.0) pH Units Ur Specific [place] 1.011 (1.010-1.025) Urine Protein 30 H (Neg-Trace) mg/dL Urine Glucose (UA) Normal (Normal) mg/dL Urine Ketones Negative (Negative) mg/dL Urine Blood Trace H (Negative) Urine Nitrite Negative (Negative) Urine Bilirubin Negative (Negative) Urine Urobilinogen Normal (Normal) mg/dL Ur Leukocyte Esterase Negative (Negative) Urine Microscopic RBC 3-5 H (0-3) per hpf Urine Microscopic WBC 3-5 H (0-3) per hpf Ur Squamous Epith Cells Many H (None-Few) per lpf Urine Bacteria None Seen (None-Few) per hpf Hyaline Casts None Seen (None-Few) per lpf Ur Culture Indicated? NO (NO) - Radiology Data Radiology results reviewed: Yes I reviewed the patient's radiology results. - EKG Data EKG attestation: Yes I reviewed and interpreted this EKG. EKG results narrative: EKG obtained at 1508 on 12/01/2018 Heart rate 92 bpm, [place] interval 148, QRS duration 96, QT 361, QTC 447 Sinus rhythm with right axis deviation. No signs of ST segment elevations or depressions. No other acute abnormalities. Mild T-wave flattening when compared to previous EKG dated 11/15/2018. Generalized artifact throughout. Attestation Statement - Attestation Attestation: I have seen this patient with the resident physician, I have personally evaluated this patient. I had reviewed the chart and document dictation by the resident physician and aM in agreement with the information documented by the resident physician. Please see documentation by the resident physician for complete chart including past medical history, family medical history, review of systems, current history and physical and laboratory and imaging studies. I was present for all procedures, provided direct supervision for all pr ocedures, was present for the entirety of all procedures and provided direct guidance during the procedures. Please see documentation by the resident physician for any procedures performed. I have reviewed all interpretations of EKGs, and reviewed all EKGs performed on patient's as well. I have also reviewed reports of imaging as provided by radiology.
[2018-12-01 16:05] LABS: Alanine Aminotransferase 14 Units/L (7-52); Albumin 3.2 g/dL (3.5-5.7); Albumin/Globulin Ratio 1.5 (1.1-2.2); Alkaline Phosphatase 69 Units/L (34-104); Aspartate Amino Transferase 23 Units/L (13-39); BUN/Creatinine Ratio 5 (6-26); Bilirubin,Direct 0.5 mg/dL (0.0-0.2); Bilirubin,Total 1.5 mg/dL (0.3-1.0); Blood Urea Nitrogen 5 mg/dL (8-23); Calcium 8.3 mg/dL (8.6-10.3); Carbon Dioxide 27 mEq/L (23-29); Chloride 106 mEq/L (98-107); Globulin 2.1 g/dL (2.4-3.5); Glucose 128 mg/dL (70-105); Lipase 30 Units/L (11-82); Osmolality,Calculated 289 (280-300); Potassium 2.9 mEq/L (3.5-5.1); Sodium 140 mEq/L (136-145); Total Protein 5.3 g/dL (6.4-8.9); Troponin I < 0.03 ng/mL (< 0.04); eGFR For African Americans > 60 (> 60); eGFR For Non-African Americans > 60 (> 60)
--- NOTE | 2018-12-01 16:06 | Emergency Department Note ---
Disposition Clinical Impression: Dehydration, Nausea & vomiting, Hypokalemia Disposition: Admitted As Inpatient Condition: Fair [facility]Primary Care Provider[facility] - Forms: ED Satisfaction Letter Time of Disposition: 17:37 General Adult HPI - General Chief complaint: ED Nausea/Vomiting/Diarrhea Stated complaint: flu like symptoms Time Seen by Provider: 12/01/18 15:14 Source: patient Mode of arrival: ambulatory Limitations: no limitations Nursing Notes Reviewed: Yes Vital Signs Reviewed: Yes - History of Present Illness Pain Scale: 0 - Related Data Home Medications Medication Instructions Recorded Confirmed Albuterol Sulfate [Proventil 2 puff IH Q4H PRN 08/13/15 11/15/18 Inhaler] Cholecalciferol (Vitamin D3) 1,000 unit PO DAILY #0 08/13/15 11/15/18 [Vitamin D3] Levothyroxine [Synthroid] 75 mcg PO QAM 08/14/15 11/15/18 Aspirin 81 mg PO DAILY 02/21/16 11/15/18 Budesonide/Formoterol 160/4.5 2 puff IH BIDR 02/21/16 11/15/18 [Symbicort 160/4.5] Calcium Carbonate/Vitamin D3 1 each PO DAILY 02/21/16 11/15/18 [Calcium 500-Vit D3 200 Caplet] Rosuvastatin [Crestor] 40 mg PO HS 02/21/16 11/15/18 predniSONE [PredniSONE] 10 mg PO DAILY 02/21/16 11/15/18 Erythromycin OPTH Oint 1 appl BOTH EYES DAILY PRN 10/22/18 11/15/18 Montelukast [Singulair] 10 mg PO DAILY 10/22/18 11/15/18 Roflumilast [Daliresp] 250 mcg PO DAILY 10/22/18 11/15/18 Warfarin [Coumadin] 4 mg PO QPM 10/22/18 11/15/18 Previous Rx's Medication Instructions Recorded Omeprazole 40 mg PO DAILY #30 tablet. 08/16/15 Allergies Allergy/AdvReac Type Severity Reaction Status Date / Time No Known Allergies Allergy Verified 11/15/18 12:40 All systems ED: reviewed and negative except as stated. Review of Systems: As Per HPI Past Medical History - Past Medical History Medical history: Reports: COPD, hyperlipidemia, pulmonary embolus, thyroid disease, other Surgical history: Reports: pacemaker/AICD Psychiatric history: Reports: no psych history - Social History Smoking Status: Former smoker Smokeless Tobacco Status: No Alcohol use: Reports: none Drug use: Reports: none Physical Exam - General General appearance: alert Course Vital Signs Temperature 99.0 F 12/01/18 15:03 Pulse Rate 91 12/01/18 15:03 Respiratory Rate 17 12/01/18 15:03 Blood Pressure 116/85 12/01/18 15:03 O2 Sat by Pulse Oximetry 97 12/01/18 15:03 Temperature 99.0 F 12/01/18 15:03 Pulse Rate 91 12/01/18 15:03 Respiratory Rate 17 12/01/18 15:03 Blood Pressure 116/85 12/01/18 15:03 O2 Sat by Pulse Oximetry 97 12/01/18 15:03 Oxygen Delivery Oxygen Delivery Room Air Medical Decision Making - Lab Data Result diagrams: 12/01/18 15:32 12/01/18 15:32 Lab Results 12/01/18 12/01/18 12/01/18 Range/Units 15:32 15:32 15:32 WBC 9.7 (4.3-11.1) K/mcL RBC 4.73 (4.19-5.50) M/mcL Hgb 13.9 (12.9-16.9) g/dL Hct 42.8 (37.5-50.1) % MCV 90.5 (83.0-100.0) fL MCH 29.4 (28.0-33.3) pg MCHC 32.5 (31.6-35.5) g/dL RDW 16.0 H (11.5-14.5) % Plt Count 215 (140-400) K/mcL MPV 9.6 (9.4-12.4) fL Immature Gran % 0.5 (0-4) % Seg Neutrophils % 87.8 % Lymphocytes % 7.6 % Monocytes % 3.6 % Eosinophils % 0.1 % Basophils % 0.4 % Neutrophils # 8.5 (1.6-8.9) K/mcL Lymphocytes # 0.7 (0.6-4.6) K/mcL Monocytes # 0.4 (0.0-1.3) K/mcL Eosinophils # 0.0 (0.0-0.6) K/mcL Basophils # 0.0 (0.0-0.2) K/mcL Sodium 140 (136-145) mEq/L Potassium 2.9 L (3.5-5.1) mEq/L Chloride 106 (98-107) mEq/L Carbon Dioxide 27 (23-29) mEq/L BUN 5 L (8-23) mg/dL Creatinine 0.92 (0.70-1.30) mg/dL Est GFR ( Amer) > 60 (> 60) Est GFR (Non-Af Amer) > 60 (> 60) BUN/Creatinine Ratio 5 L (6-26) Glucose 128 H (70-105) mg/dL Calculated Osmolality 289 (280-300) Lactic Acid 1.3 (0.5-2.2) mmol/L Calcium 8.3 L (8.6-10.3) mg/dL Total Bilirubin 1.5 H (0.3-1.0) mg/dL Direct Bilirubin 0.5 H (0.0-0.2) mg/dL Indirect Bilirubin 1.0 (0.0-1.2) mg/dL AST 23 (13-39) Units/L ALT 14 (7-52) Units/L Alkaline Phosphatase 69 (34-104) Units/L Troponin I < 0.03 (< 0.04) ng/mL Serum Total Protein 5.3 L (6.4-8.9) g/dL Albumin 3.2 L (3.5-5.7) g/dL Globulin 2.1 L (2.4-3.5) g/dL Albumin/Globulin Ratio 1.5 (1.1-2.2) Lipase 30 (11-82) Units/L Urine Color (Yellow) Urine Clarity (Clear) Urine pH (5.0-8.0) pH Units Ur Specific [place] (1.010-1.025) Urine Protein (Neg-Trace) mg/dL Urine Glucose (UA) (Normal) mg/dL Urine Ketones (Negative) mg/dL Urine Blood (Negative) Urine Nitrite (Negative) Urine Bilirubin (Negative) Urine Urobilinogen (Normal) mg/dL Ur Leukocyte Esterase (Negative) Urine Microscopic RBC (0-3) per hpf Urine Microscopic WBC (0-3) per hpf Ur Squamous Epith Cells (None-Few) per lpf Urine Bacteria (None-Few) per hpf Hyaline Casts (None-Few) per lpf Ur Culture Indicated? (NO) 12/01/18 Range/Units 16:52 WBC (4.3-11.1) K/mcL RBC (4.19-5.50) M/mcL Hgb (12.9-16.9) g/dL Hct (37.5-50.1) % MCV (83.0-100.0) fL MCH (28.0-33.3) pg MCHC (31.6-35.5) g/dL RDW (11.5-14.5) % Plt Count (140-400) K/mcL MPV (9.4-12.4) fL Immature Gran % (0-4) % Seg Neutrophils % % Lymphocytes % % Monocytes % % Eosinophils % % Basophils % % Neutrophils # (1.6-8.9) K/mcL Lymphocytes # (0.6-4.6) K/mcL Monocytes # (0.0-1.3) K/mcL Eosinophils # (0.0-0.6) K/mcL Basophils # (0.0-0.2) K/mcL Sodium (136-145) mEq/L Potassium (3.5-5.1) mEq/L Chloride (98-107) mEq/L Carbon Dioxide (23-29) mEq/L BUN (8-23) mg/dL Creatinine (0.70-1.30) mg/dL Est GFR ( Amer) (> 60) Est GFR (Non-Af Amer) (> 60) BUN/Creatinine Ratio (6-26) Glucose (70-105) mg/dL Calculated Osmolality (280-300) Lactic Acid (0.5-2.2) mmol/L Calcium (8.6-10.3) mg/dL Total Bilirubin (0.3-1.0) mg/dL Direct Bilirubin (0.0-0.2) mg/dL Indirect Bilirubin (0.0-1.2) mg/dL AST (13-39) Units/L ALT (7-52) Units/L Alkaline Phosphatase (34-104) Units/L Troponin I (< 0.04) ng/mL Serum Total Protein (6.4-8.9) g/dL Albumin (3.5-5.7) g/dL Globulin (2.4-3.5) g/dL Albumin/Globulin Ratio (1.1-2.2) Lipase (11-82) Units/L Urine Color Yellow (Yellow) Urine Clarity Clear (Clear) Urine pH 7.5 (5.0-8.0) pH Units Ur Specific [place] 1.011 (1.010-1.025) Urine Protein 30 H (Neg-Trace) mg/dL Urine Glucose (UA) Normal (Normal) mg/dL Urine Ketones Negative (Negative) mg/dL Urine Blood Trace H (Negative) Urine Nitrite Negative (Negative) Urine Bilirubin Negative (Negative) Urine Urobilinogen Normal (Normal) mg/dL Ur Leukocyte Esterase Negative (Negative) Urine Microscopic RBC 3-5 H (0-3) per hpf Urine Microscopic WBC 3-5 H (0-3) per hpf Ur Squamous Epith Cells Many H (None-Few) per lpf Urine Bacteria None Seen (None-Few) per hpf Hyaline Casts None Seen (None-Few) per lpf Ur Culture Indicated? NO (NO) Attestation Statement - Attestation Attestation: I have seen this patient with the resident physician, I have personally evaluated this patient. I had reviewed the chart and document dictation by the resident physician and aM in agreement with the information documented by the resident physician. Please see documentation by the resident physician for complete chart including past medical history, family medical history, review of systems, current history and physical and laboratory and imaging studies. I was present for all procedures, provided direct supervision for all procedures, was present for the entirety of all procedures and provided direct guidance during the procedures. Please see documentation by the resident deonte wise for any procedures performed. I have reviewed all interpretations of EKGs, and reviewed all EKGs performed on patient's as well. I have also reviewed reports of imaging as provided by radio logy. Patient presents emergency Department with chief complaint of multiple current concerns. He reports that he has lost 30 pounds over the last 1 month. He states that he has been sick ever since he had his tracheostomy placed at this hospital 2 months ago, with multiple repeat visits, then required having his gallbladder taken out approximately 2 weeks ago, he went home after that was states that ever since he has had problems with nausea and vomiting generalized weakness and not feeling well. States for about 3 days he just was not hungry, then he started to eat and any time he took more than 3 bites of food he would throw up now he is not keeping down water he states that at the [facility] they have been giving him IV fluids, as well as now IV dextrose and electrolytes through the IV to replace his losses. He states that if he drinks at all he gets nauseated and then throws up he does report however that he believes he been able to keep down all his medications. He states that today he threw up bile and felt worse increasing abdominal pain which is again also been present ever since his surgery and states that they sent him here even though he is supposed to have a scope performed tomorrow for the same symptoms. Patient states that he has had some decreased bowel movements was states he has not really been eating he reports that he believes he is passing gas he reports some decreased urination. He denies black or bloody stool or black or bloody emesis states that his emesis looked green today for the first time. He denies fevers or chills. He denies any leg swelling he denies any rashes she denies any yellowing of his skin. He denies any acute chest pain or shortness of breath he has chronic shortness of breath related to his sarcoidosis states that sometimes he feels like maybe he is not getting quite as much oxygen as he could use but states that he does not feel that way right now. He denies headache neck pain or neck stiffness denies sore throat. On physical examination he is alert oriented 3 and in no acute distress cranial nerves are intact. Oropharynx is normal mucous membranes appear relatively normal without significant evidence of dehydration. Tracheostomy site appears healthy, however approximately 3 cm inferior to his tracheostomy there is some irritation of the skin or his tracheostomy appears to be rubbing on his skin, there is no surrounding cellulitis but there is a very small superficial ulceration, which appears to again be related to contact irritation from his tracheostomy tube. No bleeding. No purulence. Lungs are reveal some mild diffuse coarse sounds with wheezing no increased work of breathing no focal adventitious sound. The abdomen is soft and nondistended auscultate bowel sounds and is non-peritoneal, well-healing surgical sites, each with small bruising from his laparoscopy. No wound dehiscence no warmth or erythema on the abdomen the epigastric abdomen is mildly to moderately tender in the lower desiree drants are mildly to moderately tender no specific shake tenderness or percussion tenderness no obvious palpable or pulsatile masses or hernias. Skin is warm dry without rash or petechiae no significant jaundice cannot completely rule out some mild scleral icterus, however there is no sublingual icterus, do not believe likely icterus no jaundice of the skin and no petechiae of the skin generally. Trace bilateral lower extremity edema without unilateral swelling, or calf tenderness Homans sign or clinical evidence of DVT. Basic laboratory studies were ordered. CT scan of the abdomen and pelvis was ordered. Symptomatic management was ordered as well. Basic laboratory studies were all within acceptable limits, apart from hypokalemia of 2.9 supplemented with IV potassium 40 mEq. Bilirubin was stable at 1.5. CT scan of the abdomen pelvis is interpreted by radiology showed no acute intra- abdominal process. Patient was admitted to the hospital for further evaluation and management of intractable vomiting, hypokalemia.
[2018-12-01] MEDS ORDERED: Potassium Chloride 40 MEQ, Lidocaine 1% 2 ML in 0.9 % Sodium Chloride 500 ML IVPB ONE (16:24)
[2018-12-01 17:26] LABS: Bilirubin,Urine Negative (Negative); Blood,Urine Trace (Negative); Clarity,Urine Clear (Clear); Color,Urine Yellow (Yellow); Glucose,Urine (UA) Normal (Normal); Ketones,Urine Negative (Negative); Leukocyte Esterase,Urine Negative (Negative); Nitrite,Urine Negative (Negative); PH,Urine 7.5 pH Units (5.0-8.0); Protein,Urine 30 mg/dL (Neg-Trace); Specific Gravity,Urine 1.011 (1.010-1.025); Urobilinogen,Urine Normal (Normal)
[2018-12-01 17:30] LABS: Bacteria,Urine None Seen per hpf (None-Few); Hyaline Casts,Urine None Seen per lpf (None-Few); Squamous Epithelial Cell,Urine Many per lpf (None-Few)
--- NOTE | 2018-12-01 18:08 | Acute Care Surgery Event Note ---
Date of Encounter: 12/01/18 Time of Encounter: 18:00 The patient is familiar to the acute care surgery service. He had laparoscopic cholecystectomy earlier this month for nonspecific upper abdominal discomfort. He did not have full resolution of his pain. He presents with nausea and vomiting. He has a diagnosis of sarcoidosis that required tracheostomy for vocal cord paralysis. It is reasonable to proceed with upper endoscopy and this will be scheduled for 12/02/2018. Please keep patient nothing by mouth after midnight.
[2018-12-01] MEDS ORDERED: Naloxone 0.4 MG/ML INJ IVP PRN (18:10)
--- NOTE | 2018-12-01 18:26 | Internal Med History&Physical ---
Date of Encounter: 12/01/18 Time of Encounter: 18:30 Internal Medicine - H&P: HPI Chief complaint: Intractable nausea and vomiting Admitted From: Long-term Nursing Facility Plans for Post Hospital Care: Home History of present illness: 73-year-old male with history of CLL, sarcoidosis with recent vocal cord involvement and trach placement, chronic PE, NICM s/p ICD , recent cholecystectomy who came into the hospital from [place] [facility] due to intractable nausea/vomiting and periumbilical abdominal pain. His symptoms started 3 days after discharge from the hospital as intractable nausea, nonbloody, yellowish vomiting. He was given Carafate and PPI with not significant improvement. He had no oral intake since 3 days. He had periumbilical abdominal pain, 5/10, nonradiating, constant. He denied any constipation or diarrhea. He had no fever, chills or night sweats. Patient has been on steroid therapy for 10 years for his sarcoidosis. He was scheduled to have EGD done by Dr. Woodard tomorrow morning In the ED, patient was afebrile, hemodynamically stable. CT abdomen and pelvis with contrast with no acute findings. Blood work was significant for potassium 2.9, total bilirubin 1.5. He was given Phenergan, IV fluid and potassium in the ED. Past Med Surg Social Fam HX - Past Medical History Source: patient Medical history: COPD, hyperlipidemia, pulmonary embolus, thyroid disease, other Additional medical history: PE x2 Psychiatric history: no psych history - Past Surgical History Surgical History: pacemaker/AICD Additional surgical history: 2015-Pacemaker/defibulator , back surgery 3 years ago-broken back, trach 10/22/18 CLL - Social History Smoking Status: Former smoker Smokeless Tobacco Status: No Alcohol use: none Drug use: none Current living situation: Home - Independent Activity Level: Independent ambulation Recent Out of Country Travel Within the Last 8 Weeks: No Exposure or Possible Exposure to Illness During Travel: No - Family History Father Living Status: Hx Family Neurologic Disorders: Yes Mother Living Status: Hx Family Cardiac Disorders: Yes - Additional Family History Additional family history: Reviewed and noncontributory Internal Medicine - H&P: Meds Albuterol Sulfate [Proventil Inhaler] 2 puff IH Q4H PRN 08/13/15 [History] Cholecalciferol (Vitamin D3) [Vitamin D3] 1,000 unit PO DAILY #0 08/13/15 [History] Levothyroxine [Synthroid] 75 mcg PO QAM 08/14/15 [History] Omeprazole 40 mg PO DAILY #30 tablet. 08/16/15 [Rx] Aspirin 81 mg PO DAILY 02/21/16 [History] Budesonide/Formoterol 160/4.5 [Symbicort 160/4.5] 2 puff IH BIDR 02/21/16 [History] Calcium Carbonate/Vitamin D3 [Calcium 500-Vit D3 200 Caplet] 1 each PO DAILY 02/21/16 [History] Rosuvastatin [Crestor] 40 mg PO HS 02/21/16 [History] predniSONE [PredniSONE] 10 mg PO DAILY 02/21/16 [History] Erythromycin OPTH Oint 1 appl BOTH EYES DAILY PRN 10/22/18 [History] Montelukast [Singulair] 10 mg PO DAILY 10/22/18 [History] Roflumilast [Daliresp] 250 mcg PO DAILY 10/22/18 [History] Warfarin [Coumadin] 4 mg PO QPM 10/22/18 [History] Allergy/AdvReac Type Severity Reaction Status Date / Time No Known Allergies Allergy Verified 11/15/18 12:40 All Systems PM: A 10-system review of systems was performed and is negative for pertinent findings except as documented above in the HPI. - Constitutional Vitals: Temp Pulse Resp BP Pulse Ox 99.0 F 87 17 105/89 98 12/01/18 15:03 12/01/18 18:13 12/01/18 18:13 12/01/18 18:13 12/01/18 18:13 Exam: General: Patient is alert, oriented 3. Mild distress Head: Atraumatic, normal inspection, normocephalic. Eye: EOMI, PERRLA, no scleral icterus noted. ENT: Trach with no discharge Neck: Normal inspection, Respiratory: No respiratory distress, rhonchi, or wheezes noted. Cardiovascular: Regular rate and regular rhythm, S1 and S2 audible. GI: Soft, nondistended, normal bowel sounds. Mild tenderness around the periumbilical area. Multiple surgical wounds appears normal and healthy healing. Extremities:No joint swelling, pedal edema, or tenderness noted. Neurological: Alert, oriented 3, no focal deficits. Psychiatric: normal affect, normal mood. Skin: Dry, intact, warm. Normal color. No rashes. Internal Med - H&P Results - Labs CBC & Chem 7: 12/01/18 15:32 12/01/18 15:32 Labs: Short CBC 12/01/18 Range/Units 15:32 WBC 9.7 (4.3-11.1) K/mcL Hgb 13.9 (12.9-16.9) g/dL Hct 42.8 (37.5-50.1) % Plt Count 215 (140-400) K/mcL Neutrophils # 8.5 (1.6-8.9) K/mcL BMP 12/01/18 15:32 Sodium 140 Potassium 2.9 L Chloride 106 Carbon Dioxide 27 BUN 5 L Creatinine 0.92 Glucose 128 H Calcium 8.3 L Cardiac Enzymes 12/01/18 Range/Units 15:32 Troponin I < 0.03 (< 0.04) ng/mL Liver Function 12/01/18 Range/Units 15:32 Total Bilirubin 1.5 H (0.3-1.0) mg/dL Direct Bilirubin 0.5 H (0.0-0.2) mg/dL AST 23 (13-39) Units/L ALT 14 (7-52) Units/L Alkaline Phosphatase 69 (34-104) Units/L Albumin 3.2 L (3.5-5.7) g/dL Urine 12/01/18 Range/Units 16:52 Urine Color Yellow (Yellow) Urine Clarity Clear (Clear) Urine pH 7.5 (5.0-8.0) pH Units Ur Specific [place] 1.011 (1.010-1.025) Urine Protein 30 H (Neg-Trace) mg/dL Urine Glucose (UA) Normal (Normal) mg/dL - EKG Data -: EKG Interpreted by Myself EKG shows normal: sinus rhythm - EKG Data Prior EKG available for review: yes When compared to previous EKG: there is no significant change - Impressions ITS Impressions Chest X-Ray 12/01/18 15:42 IMPRESSION: 1. Right hemidiaphragm elevation and right basilar atelectasis. 2. Chronic interstitial lung changes present. D/ / Madisyn Ramos MD / Madisyn Ramos MD Interpreting Provider: Madisyn Ramos MD Abdomen/Pelvis CT 12/01/18 16:46 IMPRESSION: 1. Status post recent cholecystectomy. No acute abnormality in the abdomen or pelvis. 2. Trace bilateral pleural effusions. D/ / 12/01/2018 16:54:33 Luis Holliday MD / [email or web address] Interpreting Provider: Luis Holliday MD - Diagnostic Studies CT scan - abdomen Status: image reviewed by me (No acute abnormality) - Assessment and Plan (1) Hypokalemia Current Visit: Yes Status: Acute (2) Nausea & vomiting Current Visit: Yes Status: Acute Qualifiers: Vomiting type: bilious vomiting Qualified Code(s): R11.14 - Bilious vomiting (3) Sarcoidosis Current Visit: Yes Status: Chronic (4) Bilateral vocal fold paralysis Current Visit: Yes Status: Chronic (5) DVT prophylaxis Current Visit: Yes Status: Chronic (6) CLL (chronic lymphocytic leukemia) Current Visit: Yes Status: Chronic (7) COPD (chronic obstructive pulmonary disease) Current Visit: Yes Status: Chronic Qualifiers: COPD type: unspecified COPD Qualified Code(s): J44.9 - Chronic obstructive pulmonary disease, unspecified (8) Pulmonary emboli Current Visit: No Status: Chronic Qualifiers: Pulmonary embolism type: other Chronicity: unspecified Acute cor pulmonale presence: without acute cor pulmonale Qualified Code(s): I26.99 - Other pulmonary embolism without acute cor pulmonale - Summary of Assessment and Plan Summary of Assessment and Plan: 3-year-old male with history of CLL, sarcoidosis with recent vocal cord involvement and trach placement, chronic PE, NICM s/p ICD , recent chol ecystectomy who [facility] due to intractable nausea/vomiting and periumbilical abdominal pain. Intractable nausea/vomiting: DD: Gastritis versus PUD versus choledocholithiasis (elevated bilirubin). CT abdomen with IV contrast without abnormality. Lipase is normal. Tomorrow for EGD, ultrasound of the abdomen. Spoke to general surgery. Keep nothing by mouth. Check INR. Started on GI cocktail and PPI. low K : 2/2 ABOVE, repeated, check BMP tomorrow. History of PE: will check INR for tomorrow procedure. Sarcoidosis; continue steroids 10 mg/ day. DVT prophylaxis: will check INR. CODE STATUS: Full code, patient may change his mind tomorrow and he will think about it today. - Time Spent With Patient Total time spent is greater than 50% in coordination of care (as documented) at patient's floor/unit and/or counseling patient:
[2018-12-01 18:40] LABS: INR 3.4; Prothrombin Time 38.5 Seconds (9.4-12.1)
[2018-12-01 19:10] LABS: Thyroid Stimulating Hormone 0.722 mcIU/mL (0.340-5.600)
[2018-12-01] MEDS ORDERED: *HR* Phytonadione 5 MG TABLET PO ONE (21:17)
[2018-12-01] MEDS: Budesonide/Formoterol 160/4.5 1 PUFF INH IH SCH (21:49)
[2018-12-01] MEDS: Mag Hydrox/Al Hydrox/Simeth 30 ML UDC PO SCH (22:47)
[2018-12-01] MEDS: *HR* Promethazine 25 MG/ML VIAL IVP SCH (22:51)
[2018-12-01] MEDS: 0.9 % Sodium Chloride w KCl 40 MEQ/1,000 ML MLS IVC SCH (23:17)
[2018-12-02 04:18] LABS: Basophils % 0.4 %; Eosinophils # 0.1 K/mcL (0.0-0.6); Hematocrit 38.6 % (37.5-50.1); Hemoglobin 12.6 g/dL (12.9-16.9); Immature Granulocytes % 0.7 % (0-4); Lymphocytes # 1.2 K/mcL (0.6-4.6); Lymphocytes % 13.4 %; Mean Corpuscular HGB Conc 32.6 g/dL (31.6-35.5); Mean Corpuscular Hemoglobin 30.1 pg (28.0-33.3); Mean Corpuscular Volume 92.1 fL (83.0-100.0); Mean Platelet Volume 9.8 fL (9.4-12.4); Monocytes # 0.9 K/mcL (0.0-1.3); Monocytes % 9.7 %; Neutrophils # 6.9 K/mcL (1.6-8.9); Platelet Count 189 K/mcL (140-400); Red Blood Count 4.19 M/mcL (4.19-5.50); Segmented Neutrophils % 74.8 %; White Blood Count 9.2 K/mcL (4.3-11.1)
[2018-12-02 04:25] LABS: INR 3.2; Prothrombin Time 36.8 Seconds (9.4-12.1)
[2018-12-02] MEDS: *HR* Promethazine 25 MG/ML VIAL IVP SCH ×4 (04:35→23:27)
[2018-12-02 04:38] LABS: Albumin 2.8 g/dL (3.5-5.7); Albumin/Globulin Ratio 1.6 (1.1-2.2); Bilirubin,Direct 0.5 mg/dL (0.0-0.2); Bilirubin,Indirect 0.8 mg/dL (0.0-1.2); Bilirubin,Total 1.3 mg/dL (0.3-1.0); Globulin 1.8 g/dL (2.4-3.5); Total Protein 4.6 g/dL (6.4-8.9)
[2018-12-02 04:39] LABS: BUN/Creatinine Ratio 8 (6-26); Blood Urea Nitrogen 6 mg/dL (8-23); Calcium 7.9 mg/dL (8.6-10.3); Carbon Dioxide 24 mEq/L (23-29); Chloride 114 mEq/L (98-107); Glucose 87 mg/dL (70-105); Osmolality,Calculated 293 (280-300); Potassium 3.3 mEq/L (3.5-5.1); Sodium 143 mEq/L (136-145); eGFR For African Americans > 60 (> 60); eGFR For Non-African Americans > 60 (> 60)
[2018-12-02] MEDS: Mag Hydrox/Al Hydrox/Simeth 30 ML UDC PO SCH ×4 (04:53→23:27)
[2018-12-02] MEDS: Budesonide/Formoterol 160/4.5 1 PUFF INH IH SCH ×2 (07:43→22:22)
[2018-12-02] MEDS: predniSONE 10 MG TABLET PO SCH (09:00)
[2018-12-02] MEDS: Cholecalciferol (D-3) 1,000 UNIT (25MCG) TABLET PO SCH (09:00)
--- NOTE | 2018-12-02 09:58 | Electrocardiograph Report ---
[facility] Test Date: 2018-12-01 Pat Name: Sam Barrera Department: EXAM5 Room: 3A71 Gender: M Executive Sales Manager: : 1945 Requested By: Christpoher Montelongo Order Number: [id number] Reading MD: Mk Banks Measurements Intervals [place] Rate: 92 P: 4 [place]: 148 QRS: 94 QRSD: 96 T: 66 QT: 361 QTc: 447 Interpretive Statements Sinus rhythm Right axis deviation Electronically Signed On 12-02-2018 9:56:08 EDT by Mk Banks
--- NOTE | 2018-12-02 12:10 | Internal Med Progress Note ---
Hospitalist Progress Note - Encounter Date of Encounter: 12/02/18 Time of Encounter: 09:40 - Subjective Interval History: Patient was seen this morning. He feels much better compared to yesterday. He reported intermittent nausea and mild epigastric discomfort. He had no chest pain or shortness of breath. - Exam Vitals: Temp Pulse Resp BP Pulse Ox 98.4 F 83 16 104/69 99 12/02/18 10:52 12/02/18 10:52 12/02/18 10:52 12/02/18 10:52 12/02/18 10:52 Exam: General: Patient is alert, oriented 3. No distress Head: Atraumatic, normal inspection, normocephalic. Eye: EOMI, PERRLA, no scleral icterus noted. ENT: Trach with no discharge Neck: Normal inspection, Respiratory: No respiratory distress, rhonchi, or wheezes noted. Cardiovascular: Regular rate and regular rhythm, S1 and S2 audible. GI: Soft, nondistended, normal bowel sounds. Mild tenderness around the periumbilical area. Multiple surgical wounds appears normal and healthy healing. Extremities:No joint swelling, pedal edema, or tenderness noted. Neurological: Alert, oriented 3, no focal deficits. Psychiatric: normal affect, normal mood. Skin: Dry, intact, warm. Normal color. No rashes. - Assessment and Plan (1) Hypokalemia Current Visit: Yes Status: Acute (2) Nausea & vomiting Current Visit: Yes Status: Acute (3) Sarcoidosis Current Visit: Yes Status: Chronic (4) Bilateral vocal fold paralysis Current Visit: Yes Status: Chronic (5) DVT prophylaxis Current Visit: Yes Status: Chronic (6) CLL (chronic lymphocytic leukemia) Current Visit: Yes Status: Chronic (7) COPD (chronic obstructive pulmonary disease) Current Visit: Yes Status: Chronic (8) Pulmonary emboli Current Visit: No Status: Chronic - Summary of Assessment and Plan Summary of Assessment and Plan: 3-year-old male with history of CLL, sarcoidosis with recent vocal cord involvem ent and trach placement, chronic PE, NICM s/p ICD , recent cholecystectomy who came into the hospital from [place] [facility] due to intractable nausea/vomiting and periumbilical abdominal pain. Intractable nausea/vomiting: DD: Gastritis versus PUD (chronic steroid therapy) versus medication induced (Mucinex and potassium) vs small bowel bacterial overgrowth (diffuse sarcoidosis). CT abdomen with IV contrast without abnormality. Lipase is normal. Tomorrow for EGD since his INR was supratherap utic today. ultrasound of the abdomen without residual choledocholithiasis. Keep nothing by mouth. Check INR. Started on GI cocktail and PPI. low K : 2/2 ABOVE, repeated, check BMP tomorrow. History of PE: Was given 2 doses of vitamin K since admission. Check INR this afternoon, may need to switch to heparin drip if subtherapeutic given his recent PE. will check INR for tomorrow procedure. Sarcoidosis; continue steroids 10 mg/ day. DVT prophylaxis: will check INR. CODE STATUS: Full code. - Time Spent with Patient Total time spent is greater than 50% in coordination of care (as documented) at patient's floor/unit and/or counseling patient: Plan of Care Discussed with: patient Internal Medicine: Result - Labs CBC & Chem 7: 12/02/18 03:51 12/02/18 03:51 Labs: Short CBC 12/01/18 12/02/18 Range/Units 15:32 03:51 WBC 9.7 9.2 (4.3-11.1) K/mcL Hgb 13.9 12.6 L (12.9-16.9) g/dL Hct 42.8 38.6 (37.5-50.1) % Plt Count 215 189 (140-400) K/mcL Neutrophils # 8.5 6.9 (1.6-8.9) K/mcL BMP 12/01/18 12/02/18 15:32 03:51 Sodium 140 143 Potassium 2.9 L 3.3 L Chloride 106 114 H Carbon Dioxide 27 24 BUN 5 L 6 L Creatinine 0.92 0.77 Glucose 128 H 87 Calcium 8.3 L 7.9 L Cardiac Enzymes 12/01/18 12/02/18 Range/Units 15:32 03:51 Troponin I < 0.03 < 0.03 (< 0.04) ng/mL Liver Function 12/01/18 12/02/18 Range/Units 15:32 03:51 Total Bilirubin 1.5 H 1.3 H (0.3-1.0) mg/dL Direct Bilirubin 0.5 H 0.5 H (0.0-0.2) mg/dL AST 23 21 (13-39) Units/L ALT 14 13 (7-52) Units/L Alkaline Phosphatase 69 58 (34-104) Units/L Albumin 3.2 L 2.8 L (3.5-5.7) g/dL Urine 12/01/18 Range/Units 16:52 Urine Color Yellow (Yellow) Urine Clarity Clear (Clear) Urine pH 7.5 (5.0-8.0) pH Units Ur Specific [place] 1.011 (1.010-1.025) Urine Protein 30 H (Neg-Trace) mg/dL Urine Glucose (UA) Normal (Normal) mg/dL - ABG Interpretation ABG results: PT/INR, D-dimer PT 36.8 Seconds (9.4-12.1) H 12/02/18 03:51 - Impressions Impressions Chest X-Ray 12/01/18 15:42 IMPRESSION: 1. Right hemidiaphragm elevation and right basilar atelectasis. 2. Chronic interstitial lung changes present. D/ / Madisyn Ramos MD / Madisyn Ramos MD Interpreting Provider: Madisyn Ramos MD Abdomen/Pelvis CT 12/01/18 16:46 IMPRESSION: 1. Status post recent cholecystectomy. No acute abnormality in the abdomen or pelvis. 2. Trace bilateral pleural effusions. D/ / 12/01/2018 16:54:33 Luis Holliday MD [facility] Interpreting Provider: Luis Holliday MD Abdomen Ultrasound 12/01/18 21:07 IMPRESSION: Post cholecystectomy. Otherwise, unremarkable right upper quadrant ultrasound. D/ / Merle Penny MD / Merle Penny MD Interpreting Provider: Merle Penny MD Consult Discharge Plan - Plan [facility]errals: [facility] [Primary Care Provider[facility] - (2) Nausea & vomiting Qualifiers: Vomiting type: bilious vomiting Qualified Code(s): R11.14 - Bilious vomiting (7) COPD (chronic obstructive pulmonary disease) Qualifiers: COPD type: unspecified COPD Qualified Code(s): J44.9 - Chronic obstructive pulmonary disease, unspecified (8) Pulmonary emboli Qualifiers: Pulmonary embolism type: other Chronicity: unspecified Acute cor pulmonale presence: without acute cor pulmonale Qualified Code(s): I26.99 - Other pulmonary embolism without acute cor pulmonale
[2018-12-02 16:25] LABS: INR 1.9; Prothrombin Time 21.4 Seconds (9.4-12.1)
--- NOTE | 2018-12-02 17:06 | AcuteCareSurgery Progress Note ---
Date of Encounter: 12/02/18 Time of Encounter: 08:00 - Assessment and Plan (1) Nausea & vomiting Current Visit: Yes Status: Acute Recommend upper endoscopy to evaluate for persistent nausea and vomiting. Procedure, risk and benefits of upper endoscopy are discussed. Pt understands risks and possible complications. Possible complications include but, are not limited to bleeding, infection or perforation. Pt understands and wishes to p roceed as recommended. Consent is obtained. Inpatient upper endoscopy is scheduled. Await decrease in INR. NPO after MN. Qualifiers: Vomiting type: bilious vomiting Qualified Code(s): R11.14 - Bilious vomiting (2) S/P laparoscopic cholecystectomy Current Visit: Yes Status: Acute No complications. Incisions C/D/I. (3) Sarcoidosis Current Visit: Yes Status: Chronic (4) COPD (chronic obstructive pulmonary disease) Current Visit: Yes Status: Chronic Qualifiers: COPD type: unspecified COPD Qualified Code(s): J44.9 - Chronic obstructive pulmonary disease, unspecified (5) Presence of tracheostomy Current Visit: No Status: Acute (6) Supratherapeutic INR Current Visit: No Status: Acute On coumadin for hx PE. Coumadin is on hold. INR this am was 3.4. EGD was postponed until tomorrow. INR this afternoon is 1.9. Subjective Patient reports: no new complaints, feels better, still having pain, pain is less, tolerating liquids well, nausea, afebrile Objective Vital Signs - Last 8 Hours Temp Pulse Resp BP Pulse Ox 12/02/18 16:39 98.3 F 92 16 124/77 95 12/02/18 10:52 98.4 F 83 16 104/69 99 12/02/18 09:05 98.0 F 76 16 120/79 97 Intake and Output 12/02/18 12/02/18 12/02/18 07:59 15:59 23:59 Output Total 950 / 1250 300 / 1250 Balance -950 / -1250 -300 / -1250 Output: Urine 950 / 1250 300 / 1250 Other: Blood Glucose* 79 91 91 - General physical appearance no distress, moderate pain - Eyes PERRL, normal ocular movement - ENT no congestion, dry mucosa - Neck Neck exam: trachea midline, no venous distension, other (trach in place) - Respiratory normal respiratory effort rales: bilateral - Cardiovascular Cardiovascular exam: Present: RRR. Absent: JVD - Abdomen Abdomen: Present: bowel sounds present, soft, tender Abdominal Tenderness: epigastic - Neurologic CN 2-12 grossly intact, normal coordination - Musculoskeletal normal posture - Psychiatric oriented to time, oriented to person, oriented to place - Labs 12/02/18 03:51 12/02/18 03:51 Diabetes panel 12/01/18 12/02/18 12/02/18 Range/Units 15:32 03:51 03:51 Sodium 140 143 (136-145) mEq/L Potassium 2.9 L 3.3 L (3.5-5.1) mEq/L Chloride 106 114 H (98-107) mEq/L Carbon Dioxide 27 24 (23-29) mEq/L BUN 5 L 6 L (8-23) mg/dL Creatinine 0.92 0.77 (0.70-1.30) mg/dL Glucose 128 H 87 (70-105) mg/dL Calcium 8.3 L 7.9 L (8.6-10.3) mg/dL AST 23 21 (13-39) Units/L ALT 14 13 (7-52) Units/L Alkaline Phosphatase 69 58 (34-104) Units/L Albumin 3.2 L 2.8 L (3.5-5.7) g/dL Thyroid panel 12/01/18 Range/Units 15:32 TSH 0.722 (0.340-5.600) mcIU/mL Calcium panel 12/01/18 12/02/18 12/02/18 Range/Units 15:32 03:51 03:51 Calcium 8.3 L 7.9 L (8.6-10.3) mg/dL Albumin 3.2 L 2.8 L (3.5-5.7) g/dL Pituitary panel 12/01/18 12/02/18 Range/Units 15:32 03:51 Sodium 140 143 (136-145) mEq/L Potassium 2.9 L 3.3 L (3.5-5.1) mEq/L Chloride 106 114 H (98-107) mEq/L Carbon Dioxide 27 24 (23-29) mEq/L BUN 5 L 6 L (8-23) mg/dL Creatinine 0.92 0.77 (0.70-1.30) mg/dL Glucose 128 H 87 (70-105) mg/dL Calcium 8.3 L 7.9 L (8.6-10.3) mg/dL TSH 0.722 (0.340-5.600) mcIU/mL Adrenal panel 12/01/18 12/02/18 12/02/18 Range/Units 15:32 03:51 03:51 Sodium 140 143 (136-145) mEq/L Potassium 2.9 L 3.3 L (3.5-5.1) mEq/L Chloride 106 114 H (98-107) mEq/L Carbon Dioxide 27 24 (23-29) mEq/L BUN 5 L 6 L (8-23) mg/dL Creatinine 0.92 0.77 (0.70-1.30) mg/dL Glucose 128 H 87 (70-105) mg/dL Calcium 8.3 L 7.9 L (8.6-10.3) mg/dL Total Bilirubin 1.5 H 1.3 H (0.3-1.0) mg/dL AST 23 21 (13-39) Units/L ALT 14 13 (7-52) Units/L Alkaline Phosphatase 69 58 (34-104) Units/L Albumin 3.2 L 2.8 L (3.5-5.7) g/dL Consult Discharge Plan - Plan [facility]errals: [facility] [Primary Care Provider[facility] -
[2018-12-02] MEDS: Pantoprazole 40 MG VIAL IVP SCH (22:24)
[2018-12-02] MEDS: 0.9 % Sodium Chloride w KCl 40 MEQ/1,000 ML MLS IVC SCH (23:22)
--- NOTE | 2018-12-03 04:57 | Anesthesia Evaluation PreOp ---
Date of Encounter: 12/03/18 Time of Encounter: 18:07 - Past History Planned Operation: EGD Cardiac History: HTN, Hyperlipidemia, Arrhythmia, Pacemaker/ICD (AICD) Pulmonary History: Former smoker, COPD, Other (PE on chronic anticoagulation, trach for sarcoid laryngeal stenosis) Other Medical History: Thyroid (hypo), Other (sarcoidosis,intractable nausea and vomitting) Anesthesia History: No Prior Anesthetic Complications, Past Anesthesia (recent lap jesenia) Alcohol Use: none Drug use: none Medications and Allergies Cholecalciferol (Vitamin D3) [Vitamin D3] 1,000 unit PO DAILY #0 08/13/15 [History] Levothyroxine [Synthroid] 75 mcg PO QAM 08/14/15 [History] Budesonide/Formoterol 160/4.5 [Symbicort 160/4.5] 2 puff IH BIDR 02/21/16 [History] Rosuvastatin [Crestor] 40 mg PO HS 02/21/16 [History] predniSONE [PredniSONE] 10 mg PO DAILY 02/21/16 [History] Erythromycin OPTH Oint 1 appl BOTH EYES HS 10/22/18 [History] Montelukast [Singulair] 10 mg PO HS 10/22/18 [History] Roflumilast [Daliresp] 500 mcg PO DAILY 10/22/18 [History] Warfarin [Coumadin] 4 mg PO SUTUTHSA 10/22/18 [History] Guaifenesin [Mucus Relief] 400 mg PO TID 12/01/18 [History] Ipratropium/Albuterol Neb [Duoneb] 3 ml IH QID PRN 12/01/18 [History] Miconazole 2% cream [Michelle Antifungal] 1 appl TP BID 12/01/18 [History] Ondansetron [Zofran] 4 mg IVP QID PRN 12/01/18 [History] Pantoprazole Sodium [Protonix IV] 40 mg IVP Q12H 12/01/18 [History] Potassium Chloride [K-Tab ER] 20 meq PO DAILY 12/01/18 [History] Sennosides/Docusate Sodium [Senna Plus 8.6-50 mg Tablet] 1 each PO BID 12/01/18 [History] Sucralfate [Carafate] 1 gm PO QIDAC 12/01/18 [History] Warfarin [Coumadin] 3 mg PO MOWEFR 12/01/18 [History] Allergy/AdvReac Type Severity Reaction Status Date / Time No Known Allergies Allergy Verified 11/15/18 12:40 - Meds/Allergy Pre-op Review Medications Reviewed: Yes Allergies Reviewed: Yes Beta Blockers on Current Med List: No Anesthesia Results - Labs 12/03/18 12:45 12/03/18 05:30 Laboratory Tests 10/22/18 11/06/18 12/02/18 04:02 04:30 16:05 PT 21.4 H INR 1.9 APTT 38.0 H Heparin Anti-Xa, Unfract 0.05 L - Imaging EKG: report reviewed (Interpretive Statements Sinus rhythm Right axis deviation Electronically Signed On 12-02-2018 9:56:08 EDT by Mk Banks) Anesthesia Exam Vital Signs/O2 Sat, Most Current Temp Pulse Resp BP Pulse Ox 98.6 F 55 14 111/68 96 12/03/18 03:49 12/03/18 03:49 12/03/18 03:49 12/03/18 03:49 12/03/18 03:49 Weight: 83kg NPO (# of Hours): MN - HEENT Pupil (Motor): Pupils equal, EOMI Mallampati: Trach - BILINGUAL RECEPTIONIST LOC: Oriented BILINGUAL RECEPTIONIST Motor: Normal RUE, Normal LUE, Normal RLE, Normal LLE, Normal Face BILINGUAL RECEPTIONIST Sensory: Normal: RUE, LUE, RLE, LLE, Face - Cardiac Rhythm: Regular - Pulmonary Breath Sounds: bilateral Clear Respiratory Effort: Symmetrical Anesthesia Assess/Plan ASA Score: 4 Level of consciousness: Cooperative Anesthetic Plan: General, MAC Monitoring Plan: Standard Monitors Recovery Plan: PACU
[2018-12-03] MEDS: Mag Hydrox/Al Hydrox/Simeth 30 ML UDC PO SCH ×3 (05:20→21:18)
[2018-12-03] MEDS: *HR* Promethazine 25 MG/ML VIAL IVP SCH ×3 (05:21→21:18)
[2018-12-03 05:49] LABS: Hematocrit 36.5 % (37.5-50.1); Hemoglobin 12.1 g/dL (12.9-16.9); Mean Corpuscular HGB Conc 33.2 g/dL (31.6-35.5); Mean Corpuscular Hemoglobin 29.9 pg (28.0-33.3); Mean Corpuscular Volume 90.1 fL (83.0-100.0); Mean Platelet Volume 9.9 fL (9.4-12.4); Platelet Count 182 K/mcL (140-400); Red Blood Count 4.05 M/mcL (4.19-5.50); Red Cell Distribution Width 15.9 % (11.5-14.5); White Blood Count 10.9 K/mcL (4.3-11.1)
[2018-12-03 05:58] LABS: INR 1.3; Prothrombin Time 14.4 Seconds (9.4-12.1)
[2018-12-03 06:09] LABS: BUN/Creatinine Ratio 8 (6-26); Blood Urea Nitrogen 6 mg/dL (8-23); Carbon Dioxide 21 mEq/L (23-29); Chloride 109 mEq/L (98-107); Glucose 82 mg/dL (70-105); Magnesium 1.8 mg/dL (1.6-2.6); Osmolality,Calculated 287 (280-300); Potassium 2.9 mEq/L (3.5-5.1); Sodium 140 mEq/L (136-145); eGFR For African Americans > 60 (> 60); eGFR For Non-African Americans > 60 (> 60)
[2018-12-03] MEDS: Budesonide/Formoterol 160/4.5 1 PUFF INH IH SCH ×2 (07:24→20:15)
[2018-12-03] MEDS ORDERED: Lidocaine -MPF 2% 2 ML VIAL ONE (08:18)
[2018-12-03] MEDS ORDERED: *HR* Propofol 200 MG/20 ML VIAL IVP ONE (08:18)
--- NOTE | 2018-12-03 09:55 | Acute Care Surgery Event Note ---
Date of Encounter: 12/03/18 Time of Encounter: 09:55 EGD completed. Essentially the esophagus, stomach, and duodenum were normal. Random gastric biopsies were performed. Will advance diet.
[2018-12-03] MEDS: Potassium Chloride Elixir 20 MEQ/15 ML UDC PO SCH ×2 (10:57→14:17)
[2018-12-03] MEDS: Pantoprazole 40 MG VIAL IVP SCH (10:57)
[2018-12-03] MEDS: Cholecalciferol (D-3) 1,000 UNIT (25MCG) TABLET PO SCH (10:57)
[2018-12-03] MEDS: predniSONE 10 MG TABLET PO SCH (11:00)
[2018-12-03] MEDS ORDERED: *HR* Heparin 5,000 UNIT/ML VIAL IVP ONE (11:28)
[2018-12-03] MEDS ORDERED: *HR* Heparin 5,000 UNIT/ML VIAL IVP PRN ×2 (11:28)
--- NOTE | 2018-12-03 12:04 | Internal Med Progress Note ---
Hospitalist Progress Note - Encounter Date of Encounter: 12/03/18 Time of Encounter: 10:00 - Subjective Interval History: No acute events overnight. s/p EGD this am - Exam Vitals: Temp Pulse Resp BP Pulse Ox 99.0 F 68 16 113/75 95 12/03/18 10:43 12/03/18 10:43 12/03/18 10:43 12/03/18 10:43 12/03/18 10:43 Exam: General: Patient is alert, oriented 3. No distress Head: Atraumatic, normal inspection, normocephalic. Eye: EOMI, PERRLA, no scleral icterus noted. ENT: Trach with no discharge Neck: Normal inspection, Respiratory: No respiratory distress, rhonchi, or wheezes noted. Cardiovascular: Regular rate and regular rhythm, S1 and S2 audible. GI: Soft, nondistended, normal bowel sounds. Mild tenderness around the periumbilical area. Multiple surgical wounds appears normal and healthy healing. Extremities:No joint swelling, pedal edema, or tenderness noted. Neurological: Alert, oriented 3, no focal deficits. Psychiatric: normal affect, normal mood. Skin: Dry, intact, warm. Normal color. No rashes. - Assessment and Plan (1) Nausea & vomiting Current Visit: Yes Status: Acute Assessment and Plan: Possibly secondary to gastritis. CT abdomen WNL. EGD done today WNL Symptomatic management. Advanced diet as tolerated (2) Pulmonary emboli Current Visit: Yes Status: Chronic Assessment and Plan: Received vitaminK 2/2 to supratherapeutic INR Will restart coumadin with heparin bridge (3) Hypokalemia Current Visit: Yes Status: Acute Assessment and Plan: Replaced and will repeat potassium (4) Sarcoidosis Current Visit: Yes Status: Chronic Assessment and Plan: Continue steroids (5) Bilateral vocal fold paralysis Current Visit: Yes Status: Chronic Assessment and Plan: s/p trachesotomy. Stable (6) CLL (chronic lymphocytic leukemia) Current Visit: Yes Status: Chronic Assessment and Plan: Chronic. Outpatient follow up (7) COPD (chronic obstructive pulmonary disease) Current Visit: Yes Status: Chronic Assessment and Plan: Continue nebs PRN (8) DVT prophylaxis Current Visit: Yes Status: Chronic Assessment and Plan: Continue heparin bridge to coumadin - Time Spent with Patient Total time spent is greater than 50% in coordination of care (as documented) at patient's floor/unit and/or counseling patient: Internal Medicine: Result - Labs CBC & Chem 7: 12/03/18 12:45 12/03/18 05:30 Labs: Short CBC 12/03/18 Range/Units 05:30 WBC 10.9 (4.3-11.1) K/mcL Hgb 12.1 L (12.9-16.9) g/dL Hct 36.5 L (37.5-50.1) % Plt Count 182 (140-400) K/mcL BMP 12/03/18 05:30 Sodium 140 Potassium 2.9 L Chloride 109 H Carbon Dioxide 21 L BUN 6 L Creatinine 0.77 Glucose 82 Calcium 8.0 L - ABG Interpretation ABG results: PT/INR, D-dimer PT 14.4 Seconds (9.4-12.1) H 12/03/18 05:30 - Impressions Impressions Abdomen/Pelvis CT 12/01/18 16:46 IMPRESSION: 1. Status post recent cholecystectomy. No acute abnormality in the abdomen or pelvis. 2. Trace bilateral pleural effusions. D/ / 12/01/2018 16:54:33 Luis Holliday MD / [email or web address] Interpreting Provider: Luis Holliday MD Consult Discharge Plan - Plan [facility]Primary Care Provider[facility] - ___ (1) Nausea & vomiting Qualifiers: Vomiting type: bilious vomiting Qualified Code(s): R11.14 - Bilious vomiting (2) Pulmonary emboli Qualifiers: Pulmonary embolism type: other Chronicity: unspecified Acute cor pulmonale presence: without acute cor pulmonale Qualified Code(s): I26.99 - Other pulmonary embolism without acute cor pulmonale (7) COPD (chronic obstructive pulmonary disease) Qualifiers: COPD type: unspecified COPD Qualified Code(s): J44.9 - Chronic obstructive pulmonary disease, unspecified
[2018-12-03 13:09] LABS: Hematocrit 37.8 % (37.5-50.1); Hemoglobin 12.4 g/dL (12.9-16.9); Mean Corpuscular HGB Conc 32.8 g/dL (31.6-35.5); Mean Corpuscular Volume 91.3 fL (83.0-100.0); Mean Platelet Volume 9.5 fL (9.4-12.4); Platelet Count 178 K/mcL (140-400); Red Blood Count 4.14 M/mcL (4.19-5.50); Red Cell Distribution Width 16.1 % (11.5-14.5); White Blood Count 10.9 K/mcL (4.3-11.1)
[2018-12-03 13:17] LABS: Heparin anti-factor XA UFH 0.01 IU/mL (0.30-0.70)
[2018-12-03 13:18] LABS: INR 1.2; Prothrombin Time 13.6 Seconds (9.4-12.1)
[2018-12-03] MEDS: Heparin 25,000 UNIT/250 ML D5W 25,000 UNIT/250 ML IV.SOLN IVC SCH (14:37)
[2018-12-03] MEDS ORDERED: Warfarin perPT PO PRN (18:00)
[2018-12-03] MEDS ORDERED: *HR* Warfarin 3 MG TABLET PO ONE ×2 (18:00→18:45)
[2018-12-03] MEDS: 0.9 % Sodium Chloride w KCl 40 MEQ/1,000 ML MLS IVC SCH (21:04)
[2018-12-04] MEDS: *HR* Promethazine 25 MG/ML VIAL IVP SCH ×5 (01:39→23:46)
[2018-12-04] MEDS: Mag Hydrox/Al Hydrox/Simeth 30 ML UDC PO SCH ×6 (01:41→23:54)
[2018-12-04 04:53] LABS: Basophils # 0.1 K/mcL (0.0-0.2); Eosinophils # 0.1 K/mcL (0.0-0.6); Hematocrit 36.5 % (37.5-50.1); Hemoglobin 12.2 g/dL (12.9-16.9); Lymphocytes # 1.8 K/mcL (0.6-4.6); Lymphocytes % 19.9 %; Mean Corpuscular HGB Conc 33.4 g/dL (31.6-35.5); Mean Corpuscular Volume 89.7 fL (83.0-100.0); Mean Platelet Volume 9.8 fL (9.4-12.4); Monocytes # 0.8 K/mcL (0.0-1.3); Monocytes % 8.5 %; Neutrophils # 6.3 K/mcL (1.6-8.9); Platelet Count 173 K/mcL (140-400); Red Blood Count 4.07 M/mcL (4.19-5.50); Red Cell Distribution Width 15.9 % (11.5-14.5); Segmented Neutrophils % 68.6 %; White Blood Count 9.2 K/mcL (4.3-11.1)
[2018-12-04 05:01] LABS: INR 1.2; Prothrombin Time 13.5 Seconds (9.4-12.1)
[2018-12-04 05:10] LABS: BUN/Creatinine Ratio 9 (6-26); Blood Urea Nitrogen 7 mg/dL (8-23); Calcium 8.1 mg/dL (8.6-10.3); Carbon Dioxide 20 mEq/L (23-29); Chloride 105 mEq/L (98-107); Glucose 79 mg/dL (70-105); Magnesium 1.8 mg/dL (1.6-2.6); Osmolality,Calculated 281 (280-300); Phosphorous 1.6 mg/dL (2.7-4.5); Potassium 3.1 mEq/L (3.5-5.1); Sodium 137 mEq/L (136-145); eGFR For African Americans > 60 (> 60); eGFR For Non-African Americans > 60 (> 60)
[2018-12-04] MEDS: Budesonide/Formoterol 160/4.5 1 PUFF INH IH SCH ×2 (07:19→20:34)
--- NOTE | 2018-12-04 09:00 | AcuteCareSurgery Progress Note ---
Date of Encounter: 12/04/18 Time of Encounter: 08:00 - Assessment and Plan (1) Nausea & vomiting Current Visit: Yes Status: Acute The patient continues to have vomiting. Upper endoscopy is negative. A complication from laparoscopic cholecystectomy. I have started Reglan to increase gastric emptying and encouraged by mouth intake. Qualifiers: Vomiting type: bilious vomiting Qualified Code(s): R11.14 - Bilious vomiting Subjective Narrative: The patient is seen and evaluated on morning rounds with the acute care surgery team. The patient states that he has no appetite. He had a mildly abnormal gallbladder which has been removed. There does not appear to be any complication from his cholecystectomy. The patient also underwent upper endoscopy. The upper endoscopy was very mildl abnormal with some mild gastritis. Random biopsies were taken. The patient states he has no appetite and is not tolerating his diet. I have recommended that he try and maximize his oral intake. We will start him on Reglan. I am unsure if sarcoidosis is rela fabricio to delayed gastric emptying. We will start Reglan in an effort to increase his gastric emptying and decrease his bloating symptoms Objective Vital Signs - Last 8 Hours Temp Pulse Resp BP Pulse Ox 12/04/18 08:54 98.2 F 74 16 116/77 94 12/04/18 07:23 18 94 12/04/18 04:21 98.1 F 92 16 108/67 95 Intake and Output 12/03/18 12/04/18 12/04/18 23:59 07:59 15:59 Intake Total 1099 / 1369.5 47 / 47 Output Total 125 / 1075 Balance 974 / 294.5 47 / 47 Intake: IV Fluids 1099 / 1249.5 47 / 47 KCl 40 mEq in 0.9% Sodium 1000 / 1000 Chloride 40 meq In 1,000 ml @ 75 mls/hr IVC .[id number] [facility] Rx#: [id number] Heparin 25,000 UNIT/250 ML D5W 99 / 99 47 / 47 25,000 unit In 250 ml @ 14 UNIT /KG/HR 11.704 mls/hr IVC . [id number] [facility] Rx#:[id number] Oral 0 / 120 Output: Urine 125 / 1075 Other: Weight 83.6 kg Patient Weight 12/04/18 23:59 Weight 83.6 kg - General physical appearance chronically ill, other (Tracheostomy) - Respiratory normal expansion, normal respiratory effort - Cardiovascular Cardiovascular exam: Present: RRR, no murmurs/rubs/gallops - Abdomen Abdomen: Present: bowel sounds present, soft, non tender - Psychiatric oriented to time, oriented to person, oriented to place, speech is normal, memory intact - Labs 12/04/18 04:17 12/04/18 04:17 Diabetes panel 12/03/18 12/04/18 Range/Units 17:25 04:17 Sodium 137 (136-145) mEq/L Potassium 3.9 D 3.1 L (3.5-5.1) mEq/L Chloride 105 (98-107) mEq/L Carbon Dioxide 20 L (23-29) mEq/L BUN 7 L (8-23) mg/dL Creatinine 0.78 (0.70-1.30) mg/dL Glucose 79 (70-105) mg/dL Calcium 8.1 L (8.6-10.3) mg/dL Calcium panel 12/04/18 Range/Units 04:17 Calcium 8.1 L (8.6-10.3) mg/dL Phosphorus 1.6 L (2.7-4.5) mg/dL Pituitary panel 12/03/18 12/04/18 Range/Units 17:25 04:17 Sodium 137 (136-145) mEq/L Potassium 3.9 D 3.1 L (3.5-5.1) mEq/L Chloride 105 (98-107) mEq/L Carbon Dioxide 20 L (23-29) mEq/L BUN 7 L (8-23) mg/dL Creatinine 0.78 (0.70-1.30) mg/dL Glucose 79 (70-105) mg/dL Calcium 8.1 L (8.6-10.3) mg/dL Adrenal panel 12/03/18 12/04/18 Range/Units 17:25 04:17 Sodium 137 (136-145) mEq/L Potassium 3.9 D 3.1 L (3.5-5.1) mEq/L Chloride 105 (98-107) mEq/L Carbon Dioxide 20 L (23-29) mEq/L BUN 7 L (8-23) mg/dL Creatinine 0.78 (0.70-1.30) mg/dL Glucose 79 (70-105) mg/dL Calcium 8.1 L (8.6-10.3) mg/dL Consult Discharge Plan - Plan [facility]errals: [facility] [Primary Care Provider] -
[2018-12-04] MEDS: Pantoprazole 40 MG VIAL IVP SCH (09:15)
[2018-12-04] MEDS: Cholecalciferol (D-3) 1,000 UNIT (25MCG) TABLET PO SCH (09:16)
[2018-12-04] MEDS: Potassium Chloride Elixir 20 MEQ/15 ML UDC PO SCH ×2 (09:16→09:17)
[2018-12-04] MEDS: predniSONE 10 MG TABLET PO SCH (09:16)
[2018-12-04] MEDS: Metoclopramide 10 MG/2 ML VIAL IVP SCH ×3 (12:20→23:45)
--- NOTE | 2018-12-04 15:57 | Internal Med Progress Note ---
Hospitalist Progress Note - Encounter Date of Encounter: 12/04/18 Time of Encounter: 10:00 - Subjective Interval History: No acute events overnight - Exam Vitals: Temp Pulse Resp BP Pulse Ox 98.6 F 84 16 108/72 95 12/04/18 11:49 12/04/18 11:49 12/04/18 11:49 12/04/18 11:49 12/04/18 11:49 Exam: General: Patient is alert, oriented 3. No distress Head: Atraumatic, normal inspection, normocephalic. Eye: EOMI, PERRLA, no scleral icterus noted. ENT: Trach with no discharge Neck: Normal inspection, Respiratory: No respiratory distress, rhonchi, or wheezes noted. Cardiovascular: Regular rate and regular rhythm, S1 and S2 audible. GI: Soft, nondistended, normal bowel sounds. Mild tenderness around the periumbilical area. Multiple surgical wounds appears normal and healthy healing. Extremities:No joint swelling, pedal edema, or tenderness noted. Neurological: Alert, oriented 3, no focal deficits. Psychiatric: normal affect, normal mood. Skin: Dry, intact, warm. Normal color. No rashes. - Assessment and Plan (1) Nausea & vomiting Current Visit: Yes Status: Acute Assessment and Plan: Possibly a complication of laparoscopic cholecystecomy. CT abdomen WNL. EGD done and was WNL Symptomatic management. Advanced diet as tolerated. Surgery following (2) Pulmonary emboli Current Visit: Yes Status: Chronic Assessment and Plan: Received vitamin K 2/2 to supratherapeutic INR Will restart coumadin with heparin bridge. Daily INR (3) Hypokalemia Current Visit: Yes Status: Acute Assessment and Plan: Replaced and will repeat potassium (4) Sarcoidosis Current Visit: Yes Status: Chronic Assessment and Plan: Continue steroids (5) Bilateral vocal fold paralysis Current Visit: Yes Status: Chronic Assessment and Plan: s/p trachesotomy. Stable (6) CLL (chronic lymphocytic leukemia) Current Visit: Yes Status: Chronic Assessment and Plan: Chronic. Outpatient follow up (7) COPD (chronic obstructive pulmonary disease) Current Visit: Yes Status: Chronic Assessment and Plan: Continue nebs PRN (8) DVT prophylaxis Current Visit: Yes Status: Chronic Assessment and Plan: Continue heparin bridge to coumadin - Time Spent with Patient Total time spent is greater than 50% in coordination of care (as documented) at patient's floor/unit and/or counseling patient: Internal Medicine: Result - Labs CBC & Chem 7: 12/04/18 04:17 12/04/18 04:17 Labs: Short CBC 12/04/18 Range/Units 04:17 WBC 9.2 (4.3-11.1) K/mcL Hgb 12.2 L (12.9-16.9) g/dL Hct 36.5 L (37.5-50.1) % Plt Count 173 (140-400) K/mcL Neutrophils # 6.3 (1.6-8.9) K/mcL BMP 12/03/18 12/04/18 17:25 04:17 Sodium 137 Potassium 3.9 D 3.1 L Chloride 105 Carbon Dioxide 20 L BUN 7 L Creatinine 0.78 Glucose 79 Calcium 8.1 L - ABG Interpretation ABG results: PT/INR, D-dimer PT 13.5 Seconds (9.4-12.1) H 12/04/18 04:17 Consult Discharge Plan - Plan [facility]errals: [facility] [Primary Care Provider] - (1) Nausea & vomiting Qualifiers: Vomiting type: bilious vomiting Qualified Code(s): R11.14 - Bilious vomiting (2) Pulmonary emboli Qualifiers: Pulmonary embolism type: other Chronicity: unspecified Acute cor pulmonale presence: without acute cor pulmonale Qualified Code(s): I26.99 - Other pulmonary embolism without acute cor pulmonale (7) COPD (chronic obstructive pulmonary disease) Qualifiers: COPD type: unspecified COPD Qualified Code(s): J44.9 - Chronic obstructive pulmonary disease, unspecified
[2018-12-04] MEDS ORDERED: *HR* Warfarin 2 MG TABLET PO ONE (18:00)
[2018-12-04] MEDS: Mirtazapine 15 MG TABLET PO SCH (20:08)
[2018-12-04] MEDS: Heparin 25,000 UNIT/250 ML D5W 25,000 UNIT/250 ML IV.SOLN IVC SCH (20:09)
[2018-12-05 03:25] LABS: Basophils # 0.1 K/mcL (0.0-0.2); Basophils % 0.8 %; Eosinophils # 0.1 K/mcL (0.0-0.6); Eosinophils % 0.8 %; Immature Granulocytes % 0.7 % (0-4); Immature Platelets 2.7 % (1.1-6.1); Lymphocytes # 1.7 K/mcL (0.6-4.6); Mean Corpuscular HGB Conc 34.3 g/dL (31.6-35.5); Mean Corpuscular Hemoglobin 29.9 pg (28.0-33.3); Mean Corpuscular Volume 87.3 fL (83.0-100.0); Mean Platelet Volume 9.4 fL (9.4-12.4); Monocytes # 0.8 K/mcL (0.0-1.3); Monocytes % 8.8 %; Neutrophils # 6.3 K/mcL (1.6-8.9); Platelet Count 170 K/mcL (140-400); Red Blood Count 4.01 M/mcL (4.19-5.50); Red Cell Distribution Width 15.7 % (11.5-14.5); Segmented Neutrophils % 69.9 %
[2018-12-05 03:31] LABS: INR 1.2; Prothrombin Time 13.6 Seconds (9.4-12.1)
[2018-12-05 03:48] LABS: BUN/Creatinine Ratio 7 (6-26); Blood Urea Nitrogen 6 mg/dL (8-23); Calcium 8.5 mg/dL (8.6-10.3); Carbon Dioxide 24 mEq/L (23-29); Chloride 107 mEq/L (98-107); Glucose 98 mg/dL (70-105); Magnesium 1.9 mg/dL (1.6-2.6); Osmolality,Calculated 276 (280-300); Phosphorous 2.5 mg/dL (2.7-4.5); Potassium 2.8 mEq/L (3.5-5.1); Sodium 134 mEq/L (136-145); eGFR For African Americans > 60 (> 60); eGFR For Non-African Americans > 60 (> 60)
[2018-12-05] MEDS ORDERED: Potassium Chloride Elixir 20 MEQ/15 ML UDC PO SCH (04:00)
[2018-12-05] MEDS: 0.9 % Sodium Chloride w KCl 40 MEQ/1,000 ML MLS IVC SCH ×3 (04:27→17:35)
[2018-12-05] MEDS: *HR* Promethazine 25 MG/ML VIAL IVP SCH ×2 (05:03→12:25)
[2018-12-05] MEDS: Mag Hydrox/Al Hydrox/Simeth 30 ML UDC PO SCH ×3 (05:03→17:35)
[2018-12-05] MEDS: Metoclopramide 10 MG/2 ML VIAL IVP SCH ×3 (05:03→17:35)
[2018-12-05] MEDS: Budesonide/Formoterol 160/4.5 1 PUFF INH IH SCH ×2 (07:35→19:58)
[2018-12-05] MEDS: Pantoprazole 40 MG VIAL IVP SCH (09:34)
[2018-12-05] MEDS: predniSONE 10 MG TABLET PO SCH (09:35)
[2018-12-05] MEDS: Cholecalciferol (D-3) 1,000 UNIT (25MCG) TABLET PO SCH (09:35)
--- NOTE | 2018-12-05 10:19 | AcuteCareSurgery Progress Note ---
Date of Encounter: 12/05/18 Time of Encounter: 07:25 - Assessment and Plan (1) Nausea & vomiting Current Visit: Yes Status: Acute Resolving. Pt on Reglan 10 mg IV q 6 hrs. Appetite is improving. Pt tolerating small amount of regular diet. Gastroparesis responding to reglan. Recommend Reglan 10 mg PO QID x 4-6 weeks when DC to home. Thank you for allowing us to participate in this patient's care. Surgery will sign off. Qualifiers: Vomiting type: bilious vomiting Qualified Code(s): R11.14 - Bilious vomiting (2) S/P laparoscopic cholecystectomy Current Visit: Yes Status: Acute No complications. Incisions C/D/I. (3) Sarcoidosis Current Visit: Yes Status: Chronic (4) COPD (chronic obstructive pulmonary disease) Current Visit: Yes Status: Chronic Qualifiers: COPD type: unspecified COPD Qualified Code(s): J44.9 - Chronic obstructive pulmonary disease, unspecified (5) Presence of tracheostomy Current Visit: No Status: Acute (6) Gastroparesis Current Visit: Yes Status: Acute Recommend Reglan 10 mg PO QID x 4-6 weeks upon DC from hospital. Subjective Patient reports: no new complaints, feels better, flatus, bowel movement, a febrile Narrative: Pt reports nausea and vomiting have resolved and he is able to eat more. Objective Vital Signs - Last 8 Hours Temp Pulse Resp BP Pulse Ox 12/05/18 07:36 16 94 12/05/18 07:35 94 12/05/18 07:11 98.7 F 91 15 100/71 96 12/05/18 03:57 98.3 F 79 15 113/70 95 Intake and Output 12/04/18 12/05/18 12/05/18 23:59 07:59 15:59 Intake Total 312 / 411 300 / 300 Output Total 500 / 700 600 / 600 Balance -188 / -289 -600 / -300 300 / -300 Intake: IV Fluids 52 / 151 Heparin 25,000 UNIT/250 ML D5W 52 / 151 25,000 unit In 250 ml @ 14 UNIT /KG/HR 11.704 mls/hr IVC . [id number] [facility] Rx#:[id number] Oral 260 / 260 300 / 300 Output: Urine 500 / 700 600 / 600 Other: Meal liquids - General physical appearance no distress, no pain - Eyes PERRL, normal ocular movement - ENT no congestion, dry mucosa - Neck Neck exam: trachea midline, no venous distension, other (Trach in place) - Respiratory normal respiratory effort, clear to auscultation - Cardiovascular Cardiovascular exam: Present: RRR. Absent: JVD - Incision Incision: Present: clean and dry, intact - Neurologic CN 2-12 grossly intact, normal coordination - Musculoskeletal normal posture - Psychiatric oriented to time, oriented to person, oriented to place - Labs 12/05/18 03:15 12/05/18 03:15 Diabetes panel 12/05/18 Range/Units 03:15 Sodium 134 L (136-145) mEq/L Potassium 2.8 L (3.5-5.1) mEq/L Chloride 107 (98-107) mEq/L Carbon Dioxide 24 (23-29) mEq/L BUN 6 L (8-23) mg/dL Creatinine 0.89 (0.70-1.30) mg/dL Glucose 98 (70-105) mg/dL Calcium 8.5 L (8.6-10.3) mg/dL Calcium panel 12/05/18 Range/Units 03:15 Calcium 8.5 L (8.6-10.3) mg/dL Phosphorus 2.5 L (2.7-4.5) mg/dL Pituitary panel 12/05/18 Range/Units 03:15 Sodium 134 L (136-145) mEq/L Potassium 2.8 L (3.5-5.1) mEq/L Chloride 107 (98-107) mEq/L Carbon Dioxide 24 (23-29) mEq/L BUN 6 L (8-23) mg/dL Creatinine 0.89 (0.70-1.30) mg/dL Glucose 98 (70-105) mg/dL Calcium 8.5 L (8.6-10.3) mg/dL Adrenal panel 12/05/18 Range/Units 03:15 Sodium 134 L (136-145) mEq/L Potassium 2.8 L (3.5-5.1) mEq/L Chloride 107 (98-107) mEq/L Carbon Dioxide 24 (23-29) mEq/L BUN 6 L (8-23) mg/dL Creatinine 0.89 (0.70-1.30) mg/dL Glucose 98 (70-105) mg/dL Calcium 8.5 L (8.6-10.3) mg/dL Consult Discharge Plan - Plan [facility]errals: [facility] [Primary Care Provider] -
[2018-12-05] MEDS ORDERED: *HR* Promethazine 25 MG/ML VIAL IVP PRN (14:30)
--- NOTE | 2018-12-05 16:18 | Internal Med Progress Note ---
Hospitalist Progress Note - Encounter Date of Encounter: 12/05/18 Time of Encounter: 10:00 - Subjective Interval History: No acute events overnight - Exam Vitals: Temp Pulse Resp BP Pulse Ox 98.7 F 97 15 109/70 95 12/05/18 15:30 12/05/18 15:30 12/05/18 15:30 12/05/18 15:30 12/05/18 15:30 Exam: General: Patient is alert, oriented 3. No distress Head: Atraumatic, normal inspection, normocephalic. Eye: EOMI, PERRLA, no scleral icterus noted. ENT: Trach with no discharge Neck: Normal inspection, Respiratory: No respiratory distress, rhonchi, or wheezes noted. Cardiovascular: Regular rate and regular rhythm, S1 and S2 audible. GI: Soft, nondistended, normal bowel sounds. Mild tenderness around the periumbilical area. Multiple surgical wounds appears normal and healthy healing. Extremities:No joint swelling, pedal edema, or tenderness noted. Neurological: Alert, oriented 3, no focal deficits. Psychiatric: normal affect, normal mood. Skin: Dry, intact, warm. Normal color. No rashes. - Assessment and Plan (1) Nausea & vomiting Current Visit: Yes Status: Acute Assessment and Plan: Possibly a complication of laparoscopic cholecystecomy. CT abdomen WNL. EGD done and was WNL Symptomatic management. Advanced diet as tolerated. Surgery following Patient gradually tolerating diet. Will d/c on reglan when ready for discharge (2) Pulmonary emboli Current Visit: Yes Status: Chronic Assessment and Plan: Received vitamin K 2/2 to supratherapeutic INR Will restart coumadin with heparin bridge. Daily INR Declines lovenox therapy as it makes him lose appetite. Will need to continue heparin bridge till therapeutic (3) Hypokalemia Current Visit: Yes Status: Acute Assessment and Plan: Replaced and will repeat potassium (4) Sarcoidosis Current Visit: Yes Status: Chronic Assessment and Plan: Continue steroids (5) Bilateral vocal fold paralysis Current Visit: Yes Status: Chronic Assessment and Plan: s/p trachesotomy. Stable (6) CLL (chronic lymphocytic leukemia) Current Visit: Yes Status: Chronic Assessment and Plan: Chronic. Outpatient follow up (7) COPD (chronic obstructive pulmonary disease) Current Visit: Yes Status: Chronic Assessment and Plan: Continue nebs PRN (8) DVT prophylaxis Current Visit: Yes Status: Chronic Assessment and Plan: Continue heparin bridge to coumadin - Time Spent with Patient Total time spent is greater than 50% in coordination of care (as documented) at patient's floor/unit and/or counseling patient: Internal Medicine: Result - Labs CBC & Chem 7: 12/05/18 03:15 12/05/18 15:06 Labs: Short CBC 12/05/18 Range/Units 03:15 WBC 9.0 (4.3-11.1) K/mcL Hgb 12.0 L (12.9-16.9) g/dL Hct 35.0 L (37.5-50.1) % Plt Count 170 (140-400) K/mcL Neutrophils # 6.3 (1.6-8.9) K/mcL BMP 12/05/18 12/05/18 03:15 15:06 Sodium 134 L Potassium 2.8 L 4.3 D Chloride 107 Carbon Dioxide 24 BUN 6 L Creatinine 0.89 Glucose 98 Calcium 8.5 L - ABG Interpretation ABG results: PT/INR, D-dimer PT 13.6 Seconds (9.4-12.1) H 12/05/18 03:15 Consult Discharge Plan - Plan Referrals: [facility] [Primary Care Provider] - (1) Nausea & vomiting Qualifiers: Vomiting type: bilious vomiting Qualified Code(s): R11.14 - Bilious vomiting (2) Pulmonary emboli Qualifiers: Pulmonary embolism type: other Chronicity: unspecified Acute cor pulmonale presence: without acute cor pulmonale Qualified Code(s): I26.99 - Other pulmonary embolism without acute cor pulmonale (7) COPD (chronic obstructive pulmonary disease) Qualifiers: COPD type: unspecified COPD Qualified Code(s): J44.9 - Chronic obstructive pulmonary disease, unspecified
[2018-12-05] MEDS ORDERED: *HR* Warfarin 3 MG TABLET PO ONE (18:00)
[2018-12-05] MEDS: Mirtazapine 15 MG TABLET PO SCH (21:08)
[2018-12-06] MEDS: Mag Hydrox/Al Hydrox/Simeth 30 ML UDC PO SCH ×4 (01:39→17:09)
[2018-12-06] MEDS: Metoclopramide 10 MG/2 ML VIAL IVP SCH ×4 (01:39→17:14)
[2018-12-06 06:05] LABS: Basophils # 0.1 K/mcL (0.0-0.2); Basophils % 0.9 %; Eosinophils # 0.1 K/mcL (0.0-0.6); Eosinophils % 1.3 %; Hematocrit 37.2 % (37.5-50.1); Hemoglobin 12.2 g/dL (12.9-16.9); Immature Granulocytes % 1.3 % (0-4); Lymphocytes # 1.9 K/mcL (0.6-4.6); Mean Corpuscular HGB Conc 32.8 g/dL (31.6-35.5); Mean Corpuscular Hemoglobin 29.9 pg (28.0-33.3); Mean Corpuscular Volume 91.2 fL (83.0-100.0); Mean Platelet Volume 9.9 fL (9.4-12.4); Monocytes # 0.8 K/mcL (0.0-1.3); Monocytes % 8.6 %; Neutrophils # 6.1 K/mcL (1.6-8.9); Platelet Count 169 K/mcL (140-400); Red Blood Count 4.08 M/mcL (4.19-5.50); Red Cell Distribution Width 16.3 % (11.5-14.5); Segmented Neutrophils % 66.9 %; White Blood Count 9.1 K/mcL (4.3-11.1)
[2018-12-06 06:12] LABS: INR 1.4
[2018-12-06 06:59] LABS: BUN/Creatinine Ratio 7 (6-26); Blood Urea Nitrogen 6 mg/dL (8-23); Calcium 8.4 mg/dL (8.6-10.3); Carbon Dioxide 20 mEq/L (23-29); Chloride 110 mEq/L (98-107); Glucose 89 mg/dL (70-105); Osmolality,Calculated 277 (280-300); Phosphorous 1.6 mg/dL (2.7-4.5); Potassium 3.9 mEq/L (3.5-5.1); Sodium 135 mEq/L (136-145); eGFR For African Americans > 60 (> 60); eGFR For Non-African Americans > 60 (> 60)
[2018-12-06] MEDS: Heparin 25,000 UNIT/250 ML D5W 25,000 UNIT/250 ML IV.SOLN IVC SCH ×2 (07:47→07:53)
[2018-12-06] MEDS: 0.9 % Sodium Chloride w KCl 40 MEQ/1,000 ML MLS IVC SCH ×2 (07:53→21:19)
[2018-12-06] MEDS: Pantoprazole 40 MG VIAL IVP SCH (07:55)
[2018-12-06] MEDS: predniSONE 10 MG TABLET PO SCH (07:55)
[2018-12-06] MEDS: Cholecalciferol (D-3) 1,000 UNIT (25MCG) TABLET PO SCH (07:55)
--- NOTE | 2018-12-06 08:16 | Internal Med Progress Note ---
Hospitalist Progress Note - Encounter Date of Encounter: 12/06/18 Time of Encounter: 09:00 - Subjective Interval History: No acute events overnight - Exam Vitals: Temp Pulse Resp BP Pulse Ox 98.7 F 84 15 104/66 95 12/06/18 07:22 12/06/18 07:22 12/06/18 07:22 12/06/18 07:22 12/06/18 07:22 Exam: General: Patient is alert, oriented 3. No distress Head: Atraumatic, normal inspection, normocephalic. Eye: EOMI, PERRLA, no scleral icterus noted. ENT: Trach with no discharge Neck: Normal inspection, Respiratory: No respiratory distress, rhonchi, or wheezes noted. Cardiovascular: Regular rate and regular rhythm, S1 and S2 audible. GI: Soft, nondistended, normal bowel sounds. Mild tenderness around the periumbilical area. Multiple surgical wounds appears normal and healthy healing. Extremities:No joint swelling, pedal edema, or tenderness noted. Neurological: Alert, oriented 3, no focal deficits. Psychiatric: normal affect, normal mood. Skin: Dry, intact, warm. Normal color. No rashes. - Assessment and Plan (1) Pulmonary emboli Current Visit: Yes Status: Chronic Assessment and Plan: Received vitamin K 2/2 to supratherapeutic INR Will restart coumadin with heparin bridge. Daily INR Declines lovenox therapy as it makes him lose appetite. Will need to continue heparin bridge till therapeutic INR still 1.4 this am (2) Nausea & vomiting Current Visit: Yes Status: Acute Assessment and Plan: Possibly a complication of laparoscopic cholecystecomy. CT abdomen WNL. EGD done and was WNL Symptomatic management. Advanced diet as tolerated. Surgery following Patient gradually tolerating diet. Will d/c on reglan when ready for discharge (3) Hypokalemia Current Visit: Yes Status: Acute Assessment and Plan: Replaced and will repeat potassium (4) Sarcoidosis Current Visit: Yes Status: Chronic Assessment and Plan: Continue steroids (5) Bilateral vocal fold paralysis Current Visit: Yes Status: Chronic Assessment and Plan: s/p trachesotomy. Stable (6) CLL (chronic lymphocytic leukemia) Current Visit: Yes Status: Chronic Assessment and Plan: Chronic. Outpatient follow up (7) COPD (chronic obstructive pulmonary disease) Current Visit: Yes Status: Chronic Assessment and Plan: Continue nebs PRN (8) DVT prophylaxis Current Visit: Yes Status: Chronic Assessment and Plan: Continue heparin bridge to coumadin - Time Spent with Patient Total time spent is greater than 50% in coordination of care (as documented) at patient's floor/unit and/or counseling patient: Internal Medicine: Result - Labs CBC & Chem 7: 12/06/18 04:00 12/06/18 04:00 Labs: Short CBC 12/06/18 Range/Units 04:00 WBC 9.1 (4.3-11.1) K/mcL Hgb 12.2 L (12.9-16.9) g/dL Hct 37.2 L (37.5-50.1) % Plt Count 169 (140-400) K/mcL Neutrophils # 6.1 (1.6-8.9) K/mcL BMP 12/05/18 12/06/18 15:06 04:00 Sodium 135 L Potassium 4.3 D 3.9 Chloride 110 H Carbon Dioxide 20 L BUN 6 L Creatinine 0.92 Glucose 89 Calcium 8.4 L - ABG Interpretation ABG results: PT/INR, D-dimer PT 16.0 Seconds (9.4-12.1) H 12/06/18 04:00 Consult Discharge Plan - Plan Referrals: [facility] [Primary Care Provider] - (1) Pulmonary emboli Qualifiers: Pulmonary embolism type: other Chronicity: unspecified Acute cor pulmonale presence: without acute cor pulmonale Qualified Code(s): I26.99 - Other pulmonary embolism without acute cor pulmonale (2) Nausea & vomiting Qualifiers: Vomiting type: bilious vomiting Qualified Code(s): R11.14 - Bilious vomiting (7) COPD (chronic obstructive pulmonary disease) Qualifiers: COPD type: unspecified COPD Qualified Code(s): J44.9 - Chronic obstructive pulmonary disease, unspecified
[2018-12-06] MEDS: Budesonide/Formoterol 160/4.5 1 PUFF INH IH SCH ×2 (11:12→19:46)
[2018-12-06] MEDS ORDERED: *HR* Warfarin 2 MG TABLET PO ONE (18:00)
[2018-12-06] MEDS: Mirtazapine 15 MG TABLET PO SCH (21:20)
[2018-12-07] MEDS: Mag Hydrox/Al Hydrox/Simeth 30 ML UDC PO SCH ×5 (00:07→23:43)
[2018-12-07] MEDS: Metoclopramide 10 MG/2 ML VIAL IVP SCH ×5 (00:11→23:39)
[2018-12-07 04:41] LABS: Basophils # 0.1 K/mcL (0.0-0.2); Eosinophils # 0.2 K/mcL (0.0-0.6); Eosinophils % 1.8 %; Hematocrit 36.7 % (37.5-50.1); Hemoglobin 11.9 g/dL (12.9-16.9); Immature Granulocytes % 1.3 % (0-4); Lymphocytes # 1.8 K/mcL (0.6-4.6); Lymphocytes % 18.9 %; Mean Corpuscular HGB Conc 32.4 g/dL (31.6-35.5); Mean Corpuscular Hemoglobin 29.7 pg (28.0-33.3); Mean Corpuscular Volume 91.5 fL (83.0-100.0); Mean Platelet Volume 9.8 fL (9.4-12.4); Monocytes # 0.8 K/mcL (0.0-1.3); Neutrophils # 6.5 K/mcL (1.6-8.9); Platelet Count 157 K/mcL (140-400); Red Blood Count 4.01 M/mcL (4.19-5.50); Red Cell Distribution Width 16.4 % (11.5-14.5); White Blood Count 9.5 K/mcL (4.3-11.1)
[2018-12-07 04:48] LABS: INR 1.8; Prothrombin Time 20.8 Seconds (9.4-12.1)
[2018-12-07 04:58] LABS: BUN/Creatinine Ratio 5 (6-26); Blood Urea Nitrogen 4 mg/dL (8-23); Calcium 8.2 mg/dL (8.6-10.3); Carbon Dioxide 20 mEq/L (23-29); Chloride 110 mEq/L (98-107); Glucose 85 mg/dL (70-105); Magnesium 1.8 mg/dL (1.6-2.6); Osmolality,Calculated 280 (280-300); Phosphorous 2.3 mg/dL (2.7-4.5); Potassium 3.6 mEq/L (3.5-5.1); Sodium 137 mEq/L (136-145); eGFR For African Americans > 60 (> 60); eGFR For Non-African Americans > 60 (> 60)
[2018-12-07] MEDS: predniSONE 10 MG TABLET PO SCH (07:46)
[2018-12-07] MEDS: Pantoprazole 40 MG VIAL IVP SCH (07:46)
[2018-12-07] MEDS: Cholecalciferol (D-3) 1,000 UNIT (25MCG) TABLET PO SCH (07:46)
[2018-12-07] MEDS: Budesonide/Formoterol 160/4.5 1 PUFF INH IH SCH ×2 (07:53→19:48)
--- NOTE | 2018-12-07 08:19 | Internal Med Progress Note ---
Hospitalist Progress Note - Encounter Date of Encounter: 12/07/18 Time of Encounter: 09:00 - Subjective Interval History: No acute events overnight - Exam Vitals: Temp Pulse Resp BP Pulse Ox 98.6 F 92 16 107/68 95 12/07/18 07:51 12/07/18 07:51 12/07/18 07:53 12/07/18 07:51 12/07/18 07:53 Exam: General: Patient is alert, oriented 3. No distress Head: Atraumatic, normal inspection, normocephalic. Eye: EOMI, PERRLA, no scleral icterus noted. ENT: Trach with no discharge Neck: Normal inspection, Respiratory: No respiratory distress, rhonchi, or wheezes noted. Cardiovascular: Regular rate and regular rhythm, S1 and S2 audible. GI: Soft, nondistended, normal bowel sounds. Mild tenderness around the periumbilical area. Multiple surgical wounds appears normal and healthy healing. Extremities:No joint swelling, pedal edema, or tenderness noted. Neurological: Alert, oriented 3, no focal deficits. Psychiatric: normal affect, normal mood. Skin: Dry, intact, warm. Normal color. No rashes. - Assessment and Plan (1) Pulmonary emboli Current Visit: Yes Status: Chronic Assessment and Plan: Received vitamin K 2/2 to supratherapeutic INR Will restart coumadin with heparin bridge. Daily INR Declines lovenox therapy as it makes him lose appetite. Will need to continue heparin bridge till therapeutic INR trended up to 1.8. D/C in am (2) Nausea & vomiting Current Visit: Yes Status: Acute Assessment and Plan: Possibly a complication of laparoscopic cholecystecomy. CT abdomen WNL. EGD done and was WNL Symptomatic management. Advanced diet as tolerated. Surgery following Patient gradually tolerating diet. Will d/c on reglan when ready for discharge (3) Hypokalemia Current Visit: Yes Status: Acute Assessment and Plan: Replaced and will repeat potassium (4) Sarcoidosis Current Visit: Yes Status: Chronic Assessment and Plan: Continue steroids (5) Bilateral vocal fold paralysis Current Visit: Yes Status: Chronic Assessment and Plan: s/p trachesotomy. Stable (6) CLL (chronic lymphocytic leukemia) Current Visit: Yes Status: Chronic Assessment and Plan: Chronic. Outpatient follow up (7) COPD (chronic obstructive pulmonary disease) Current Visit: Yes Status: Chronic Assessment and Plan: Continue nebs PRN (8) DVT prophylaxis Current Visit: Yes Status: Chronic Assessment and Plan: Continue heparin bridge to coumadin - Time Spent with Patient Total time spent is greater than 50% in coordination of care (as documented) at patient's floor/unit and/or counseling patient: Internal Medicine: Result - Labs CBC & Chem 7: 12/07/18 04:00 12/07/18 04:00 Labs: Short CBC 12/07/18 Range/Units 04:00 WBC 9.5 (4.3-11.1) K/mcL Hgb 11.9 L (12.9-16.9) g/dL Hct 36.7 L (37.5-50.1) % Plt Count 157 (140-400) K/mcL Neutrophils # 6.5 (1.6-8.9) K/mcL BMP 12/07/18 04:00 Sodium 137 Potassium 3.6 Chloride 110 H Carbon Dioxide 20 L BUN 4 L Creatinine 0.85 Glucose 85 Calcium 8.2 L - ABG Interpretation ABG results: PT/INR, D-dimer PT 20.8 Seconds (9.4-12.1) H 12/07/18 04:00 Consult Discharge Plan - Plan [facility] Care Provider[facility] - (1) Pulmonary emboli Qualifiers: Pulmonary embolism type: other Chronicity: unspecified Acute cor pulmonale presence: without acute cor pulmonale Qualified Code(s): I26.99 - Other pulmonary embolism without acute cor pulmonale (2) Nausea & vomiting Qualifiers: Vomiting type: bilious vomiting Qualified Code(s): R11.14 - Bilious vomiting (7) COPD (chronic obstructive pulmonary disease) Qualifiers: COPD type: unspecified COPD Qualified Code(s): J44.9 - Chronic obstructive pulmonary disease, unspecified
[2018-12-07] MEDS: 0.9 % Sodium Chloride w KCl 40 MEQ/1,000 ML MLS IVC SCH (10:25)
[2018-12-07] MEDS ORDERED: Furosemide 40 MG/4 ML VIAL IVP ONE (13:31)
[2018-12-07] MEDS: Heparin 25,000 UNIT/250 ML D5W 25,000 UNIT/250 ML IV.SOLN IVC SCH ×2 (15:51→23:38)
[2018-12-07] MEDS ORDERED: Scopolamine Patch 1.5 MG PATCH.TD72 TD SCH (16:15)
[2018-12-07] MEDS ORDERED: *HR* Warfarin 3 MG TABLET PO ONE (18:00)
[2018-12-07] MEDS: Mirtazapine 15 MG TABLET PO SCH (20:44)
[2018-12-08 04:34] LABS: Basophils # 0.1 K/mcL (0.0-0.2); Eosinophils # 0.2 K/mcL (0.0-0.6); Eosinophils % 2.1 %; Hematocrit 39.8 % (37.5-50.1); Hemoglobin 13.2 g/dL (12.9-16.9); Immature Granulocytes % 1.6 % (0-4); Lymphocytes # 1.8 K/mcL (0.6-4.6); Lymphocytes % 20.2 %; Mean Corpuscular HGB Conc 33.2 g/dL (31.6-35.5); Mean Corpuscular Volume 90.5 fL (83.0-100.0); Mean Platelet Volume 10.1 fL (9.4-12.4); Monocytes # 0.9 K/mcL (0.0-1.3); Monocytes % 9.6 %; Neutrophils # 5.9 K/mcL (1.6-8.9); Platelet Count 167 K/mcL (140-400); Red Cell Distribution Width 16.5 % (11.5-14.5); Segmented Neutrophils % 65.5 %
[2018-12-08 04:35] LABS: INR 2.7; Prothrombin Time 30.8 Seconds (9.4-12.1)
[2018-12-08 04:50] LABS: BUN/Creatinine Ratio 4 (6-26); Blood Urea Nitrogen 5 mg/dL (8-23); Calcium 8.9 mg/dL (8.6-10.3); Carbon Dioxide 25 mEq/L (23-29); Chloride 106 mEq/L (98-107); Glucose 93 mg/dL (70-105); Osmolality,Calculated 277 (280-300); Phosphorous 3.9 mg/dL (2.7-4.5); Sodium 135 mEq/L (136-145); eGFR For African Americans > 60 (> 60); eGFR For Non-African Americans > 60 (> 60)
[2018-12-08] MEDS: Mag Hydrox/Al Hydrox/Simeth 30 ML UDC PO SCH ×2 (05:29→09:37)
[2018-12-08] MEDS: Metoclopramide 10 MG/2 ML VIAL IVP SCH (05:29)
[2018-12-08] MEDS: Budesonide/Formoterol 160/4.5 1 PUFF INH IH SCH (07:44)
[2018-12-08] MEDS ORDERED: Potassium Chloride Elixir 20 MEQ/15 ML UDC PO SCH (08:15)
[2018-12-08] MEDS: predniSONE 10 MG TABLET PO SCH (09:24)
[2018-12-08] MEDS: Pantoprazole 40 MG VIAL IVP SCH (09:24)
--- NOTE | 2018-12-08 09:58 | Discharge Summary ---
Date of Encounter: 12/08/18 Time of Encounter: 10:00 - Discharge Diagnosis (1) Nausea & vomiting Priority: Primary Status: Acute Assessment and Plan: 73-year-old male with history of CLL, sarcoidosis with recent vocal cord invol vement and trach placement, chronic PE, NICM s/p ICD , recent cholecystectomy who came into the hospital from [facility] due to intractable nausea/vomiting and periumbilical abdominal pain. His symptoms started 3 days after discharge from the hospital as intractable nausea, nonbloody, yellowish vomiting. He was given Carafate and PPI with not significant improvement. He had no oral intake since 3 days. He had periumbilical abdominal pain, 5/10, nonradiating, constant. He denied any constipation or diarrhea. He had no fever, chills or night sweats. Patient has been on steroid therapy for 10 years for his sarcoidosis. He was assessed with nausea and vomiting possibly a complication of laparoscopic cholecystecomy. He had a CT abdomen done that was WNL. He also had an EGD done a nd was unremarkable. He was started on reglan and diet gradually tolerated with resolution of his nausea and vomiting. His warfarin was held prior to EGD so he required bridging fernando heparin drip back to a therapeutic INR. HE was started on mirtazapine as an appetitie stimulant and scopolamine patch for excessive secretions. He was discharged back to the [facility] in a stable condition. 35 minutes was spent discharging this patient Qualifiers: Vomiting type: bilious vomiting Qualified Code(s): R11.14 - Bilious vomiting (2) Pulmonary emboli Priority: Primary Status: Chronic Qualifiers: Pulmonary embolism type: other Chronicity: unspecified Acute cor pulmonale presence: without acute cor pulmonale Qualified Code(s): I26.99 - Other pulmonary embolism without acute cor pulmonale (3) Hypokalemia Priority: Primary Status: Acute (4) Sarcoidosis Priority: Primary Status: Chronic (5) Bilateral vocal fold paralysis Priority: Primary Status: Chronic (6) CLL (chronic lymphocytic leukemia) Priority: Primary Status: Chronic (7) COPD (chronic obstructive pulmonary disease) Priority: Primary Status: Chronic Qualifiers: COPD type: unspecified COPD Qualified Code(s): J44.9 - Chronic obstructive pulmonary disease, unspecified (8) DVT prophylaxis Priority: Primary Status: Chronic Hospital course: Mr. Barrera is a 73 year old male - Time Spent with Patient Total time spent providing and/or coordinating discharge services: - Discharge Medications Prescriptions: New Mirtazapine [Remeron] 7.5 mg PO HS #30 tablet Scopolamine Patch [Transderm-Scop] 1.5 mg TD Q72H #60 patch.td72 Metoclopramide [Reglan] 10 mg PO Q6HR PRN 30 Days #60 tablet PRN Reason: Nausea And Vomiting Continued Cholecalciferol (Vitamin D3) [Vitamin D3] 1,000 unit PO DAILY #0 Levothyroxine [Synthroid] 75 mcg PO QAM Rosuvastatin [Crestor] 40 mg PO HS Budesonide/Formoterol 160/4.5 [Symbicort 160/4.5] 2 puff IH BIDR predniSONE [PredniSONE] 10 mg PO DAILY Erythromycin OPTH Oint 1 appl BOTH EYES HS Montelukast [Singulair] 10 mg PO HS Roflumilast [Daliresp] 500 mcg PO DAILY Warfarin [Coumadin] 4 mg PO SUTUTHSA Ipratropium/Albuterol Neb [Duoneb] 3 ml IH QID PRN PRN Reason: Shortness Of Breath Sennosides/Docusate Sodium [Senna Plus 8.6-50 mg Tablet] 1 each PO BID Guaifenesin [Mucus Relief] 400 mg PO TID Miconazole 2% cream [Michelle Antifungal] 1 appl TP BID Potassium Chloride [K-Tab ER] 20 meq PO DAILY Ondansetron [Zofran] 4 mg IVP QID PRN PRN Reason: Nausea And Vomiting Pantoprazole Sodium [Protonix IV] 40 mg IVP Q12H Sucralfate [Carafate] 1 gm PO QIDAC Warfarin [Coumadin] 3 mg PO MOWEFR 30 Days #30 tab Home Medications: Cholecalciferol (Vitamin D3) [Vitamin D3] 1,000 unit PO DAILY #0 08/13/15 [History] Levothyroxine [Synthroid] 75 mcg PO QAM 08/14/15 [History] Budesonide/Formoterol 160/4.5 [Symbicort 160/4.5] 2 puff IH BIDR 02/21/16 [History] Rosuvastatin [Crestor] 40 mg PO HS 02/21/16 [History] predniSONE [PredniSONE] 10 mg PO DAILY 02/21/16 [History] Erythromycin OPTH Oint 1 appl BOTH EYES HS 10/22/18 [History] Montelukast [Singulair] 10 mg PO HS 10/22/18 [History] Roflumilast [Daliresp] 500 mcg PO DAILY 10/22/18 [History] Warfarin [Coumadin] 4 mg PO SUTUTHSA 10/22/18 [History] Guaifenesin [Mucus Relief] 400 mg PO TID 12/01/18 [History] Ipratropium/Albuterol Neb [Duoneb] 3 ml IH QID PRN 12/01/18 [History] Miconazole 2% cream [Michelle Antifungal] 1 appl TP BID 12/01/18 [History] Ondansetron [Zofran] 4 mg IVP QID PRN 12/01/18 [History] Pantoprazole Sodium [Protonix IV] 40 mg IVP Q12H 12/01/18 [History] Potassium Chloride [K-Tab ER] 20 meq PO DAILY 12/01/18 [History] Sennosides/Docusate Sodium [Senna Plus 8.6-50 mg Tablet] 1 each PO BID 12/01/18 [History] Sucralfate [Carafate] 1 gm PO QIDAC 12/01/18 [History] Metoclopramide [Reglan] 10 mg PO Q6HR PRN 30 Days #60 tablet 12/08/18 [Rx] Mirtazapine [Remeron] 7.5 mg PO HS #30 tablet 12/08/18 [Rx] Scopolamine Patch [Transderm-Scop] 1.5 mg TD Q72H #60 patch.td72 12/08/18 [Rx] Warfarin [Coumadin] 3 mg PO MOWEFR 30 Days #30 tab 12/08/18 [Rx] Allergies/Adverse Reactions: Allergy/AdvReac Type Severity Reaction Status Date / Time No Known Allergies Allergy Verified 11/15/18 12:40 Date of admission: 12/04/18 18:21 [facility] care physician: [facility] Consults: 12/01/18 18:28 Consult to Surgery [CONS] Routine Consulting Provider: [facility] Reason for Consult: Recent cholecystectomy, conjunctiva nausea vomiting, scheduled for EGD tomorrow by Dr. Madeleine Call Completed: Yes 12/07/18 13:37 Consult to Respiratory Therapy [CONS] Routine Reason for Consult: suction/ excessive secretions Call Completed: Yes - Constitutional Vitals: Temp Pulse Resp BP Pulse Ox 98.7 F 91 17 112/75 92 12/08/18 07:56 12/08/18 07:56 12/08/18 07:56 12/08/18 07:56 12/08/18 07:56 Exam: General: Patient is alert, oriented 3. No distress Head: Atraumatic, normal inspection, normocephalic. Eye: EOMI, PERRLA, no scleral icterus noted. ENT: Trach with no discharge Neck: Normal inspection, Respiratory: No respiratory distress, rhonchi, or wheezes noted. Cardiovascular: Regular rate and regular rhythm, S1 and S2 audible. GI: Soft, nondistended, normal bowel sounds. Mild tenderness around the periumbilical area. Multiple surgical wounds appears normal and healthy healing. Extremities:No joint swelling, pedal edema, or tenderness noted. Neurological: Alert, oriented 3, no focal deficits. Psychiatric: normal affect, normal mood. Skin: Dry, intact, warm. Normal color. No rashes. - Patient Status Disposition: Transfer [facility] Condition: Fair - Discharge Instructions [facility] With: [facility] Provider[facility] - ([facility] )
--- NOTE | 2018-12-08 10:00 | Physician Discharge Referral ---
- Diagnosis (1) Pulmonary emboli Priority: Primary Status: Chronic (2) Nausea & vomiting Priority: Primary Status: Acute (3) Hypokalemia Priority: Primary Status: Acute (4) Sarcoidosis Priority: Primary Status: Chronic (5) Bilateral vocal fold paralysis Priority: Primary Status: Chronic (6) CLL (chronic lymphocytic leukemia) Priority: Primary Status: Chronic (7) COPD (chronic obstructive pulmonary disease) Priority: Primary Status: Chronic (8) DVT prophylaxis Priority: Primary Status: Chronic - Transfer Medications Prescriptions: Warfarin [Coumadin] 3 mg PO MOWEFR 30 Days #30 tab Prescription Printed Metoclopramide [Reglan] 10 mg PO Q6HR PRN 30 Days #60 tablet PRN Reason: Nausea And Vomiting Prescription Printed Mirtazapine [Remeron] 7.5 mg PO HS #30 tablet Prescription Printed Scopolamine Patch [Transderm-Scop] 1.5 mg TD Q72H #60 patch.td72 Prescription Printed Home Medications: Cholecalciferol (Vitamin D3) [Vitamin D3] 1,000 unit PO DAILY #0 08/13/15 [History] Levothyroxine [Synthroid] 75 mcg PO QAM 08/14/15 [History] Budesonide/Formoterol 160/4.5 [Symbicort 160/4.5] 2 puff IH BIDR 02/21/16 [History] Rosuvastatin [Crestor] 40 mg PO HS 02/21/16 [History] predniSONE [PredniSONE] 10 mg PO DAILY 02/21/16 [History] Erythromycin OPTH Oint 1 appl BOTH EYES HS 10/22/18 [History] Montelukast [Singulair] 10 mg PO HS 10/22/18 [History] Roflumilast [Daliresp] 500 mcg PO DAILY 10/22/18 [History] Warfarin [Coumadin] 4 mg PO SUTUTHSA 10/22/18 [History] Guaifenesin [Mucus Relief] 400 mg PO TID 12/01/18 [History] Ipratropium/Albuterol Neb [Duoneb] 3 ml IH QID PRN 12/01/18 [History] Miconazole 2% cream [Michelle Antifungal] 1 appl TP BID 12/01/18 [History] Ondansetron [Zofran] 4 mg IVP QID PRN 12/01/18 [History] Pantoprazole Sodium [Protonix IV] 40 mg IVP Q12H 12/01/18 [History] Potassium Chloride [K-Tab ER] 20 meq PO DAILY 12/01/18 [History] Sennosides/Docusate Sodium [Senna Plus 8.6-50 mg Tablet] 1 each PO BID 12/01/18 [History] Sucralfate [Carafate] 1 gm PO QIDAC 12/01/18 [History] Metoclopramide [Reglan] 10 mg PO Q6HR PRN 30 Days #60 tablet 12/08/18 [Rx] Mirtazapine [Remeron] 7.5 mg PO HS #30 tablet 12/08/18 [Rx] Scopolamine Patch [Transderm-Scop] 1.5 mg TD Q72H #60 patch.td72 12/08/18 [Rx] Warfarin [Coumadin] 3 mg PO MOWEFR 30 Days #30 tab 12/08/18 [Rx] Allergies/Adverse Reactions: Allergy/AdvReac Type Severity Reaction Status Date / Time No Known Allergies Allergy Verified 11/15/18 12:40 - Respiratory Orders Smoking Cessation: Smoking cessation has been advised. For more information, call the [place] Tobacco Quit Line at 9-515-GFIN-NOW. - Mobility Orders Ambulate - Rehabiliation Orders Rehab Orders: Evaluation for Physical Therapy CERTIFICATION: I certify that the transfer of the above named patient to an Extended Care Facility is necessary for the continuing treatment of the diagnosis listed. The above information is true and accurate reflection of patient's current condition. Confidential - Redisclosure prohibited without a patient's written consent.
[2018-12-08 11:17] VITALS: BP 126/82
== END 2018-12-08 12:41 | DRG 392 ==
LOC: EMEROOARM 14:58 → 3ANU 14:58 → SUATTDRO 17:58 → 3ANU 18:46
PROVIDERS: ADMIT Internal Medicine; ATTEND Internal Medicine
PROC: ENDOEBX (2018-12-03 17:30)

== ENCOUNTER 2019-02-26 15:06 | Observation (INO) ==
[2019-02-26 16:13] LABS: INR 2.9; Prothrombin Time 32.7 Seconds (9.4-12.1)
[2019-02-26 16:15] LABS: Hematocrit 44.8 % (37.5-50.1); Hemoglobin 14.9 g/dL (12.9-16.9); Lymphocytes # 1.2 K/mcL (0.6-4.6); Mean Corpuscular HGB Conc 33.3 g/dL (31.6-35.5); Mean Corpuscular Hemoglobin 29.7 pg (28.0-33.3); Mean Corpuscular Volume 89.2 fL (83.0-100.0); Mean Platelet Volume 9.4 fL (9.4-12.4); Nucleated Red Blood Cells 0.3 /100 WBC (0); Platelet Count 144 K/mcL (140-400); Red Blood Count 5.02 M/mcL (4.19-5.50); Red Cell Distribution Width 16.3 % (11.5-14.5); White Blood Count 14.4 K/mcL (4.3-11.1)
[2019-02-26 16:35] LABS: Alanine Aminotransferase 33 Units/L (7-52); Albumin 3.6 g/dL (3.5-5.7); Albumin/Globulin Ratio 1.7 (1.1-2.2); Alkaline Phosphatase 39 Units/L (34-104); Aspartate Amino Transferase 18 Units/L (13-39); BUN/Creatinine Ratio 27 (6-26); Bilirubin,Direct 0.1 mg/dL (0.0-0.2); Bilirubin,Indirect 0.3 mg/dL (0.0-1.0); Bilirubin,Total 0.4 mg/dL (0.3-1.0); Blood Urea Nitrogen 28 mg/dL (8-23); Calcium 8.6 mg/dL (8.6-10.3); Carbon Dioxide 17 mEq/L (23-29); Chloride 106 mEq/L (98-107); Globulin 2.1 g/dL (2.4-3.5); Glucose 131 mg/dL (70-105); Lipase 134 Units/L (11-82); Osmolality,Calculated 283 (280-300); Potassium 4.3 mEq/L (3.5-5.1); Sodium 133 mEq/L (136-145); Total Protein 5.7 g/dL (6.4-8.9); eGFR For African Americans > 60 (> 60); eGFR For Non-African Americans > 60 (> 60)
[2019-02-26] MEDS ORDERED: methylPREDNISolone 125 MG/2 ML VIAL IVP ONE (17:05)
[2019-02-26] MEDS ORDERED: Ipratropium/Albuterol Neb 3 ML IH ONE (17:06)
[2019-02-26 17:32] LABS: Monocytes # 0.3 K/mcL (0.0-1.3); Platelet Estimate Normal (Normal)
[2019-02-26] MEDS ORDERED: Naloxone 0.4 MG/ML INJ IVP PRN (17:49)
[2019-02-26] MEDS ORDERED: Ondansetron 4 MG/2 ML VIAL IVP PRN (17:49)
[2019-02-26] MEDS ORDERED: Scopolamine Patch 1.5 MG PATCH.TD72 TD SCH (18:00)
[2019-02-26] MEDS ORDERED: Azithromycin 500 MG in 0.9 % Sodium Chloride 250 ML IVPB SCH (18:00)
[2019-02-26] MEDS ORDERED: cefTRIAXone 1,000 MG in Water for inj. (sterile) 10 ML IVP SCH (18:32)
[2019-02-26] MEDS ORDERED: Azithromycin 500 MG VIAL ONE (19:55)
[2019-02-26] MEDS: Budesonide/Formoterol 160/4.5 1 PUFF INH IH SCH (20:07)
[2019-02-26] MEDS: Ipratropium/Albuterol Neb 3 ML IH SCH (20:07)
[2019-02-26] MEDS: Sennosides/Docusate Sodium TABLET PO SCH (20:32)
[2019-02-26] MEDS ORDERED: Mirtazapine 15 MG TABLET PO SCH (21:00)
[2019-02-26] MEDS ORDERED: *HR* Warfarin 3 MG TABLET PO ONE (21:30)
[2019-02-26 23:10] LABS: Bilirubin,Urine Negative (Negative); Blood,Urine Negative (Negative); Clarity,Urine Cloudy (Clear); Color,Urine Yellow (Yellow); Glucose,Urine (UA) Normal (Normal); Ketones,Urine Negative (Negative); Leukocyte Esterase,Urine Negative (Negative); Nitrite,Urine Negative (Negative); Protein,Urine 30 mg/dL (Neg-Trace); Specific Gravity,Urine 1.012 (1.010-1.025); Urobilinogen,Urine Normal (Normal)
[2019-02-26 23:11] LABS: Bacteria,Urine None Seen per hpf (None-Few); Hyaline Casts,Urine None Seen per lpf (None-Few); RBC,Urine 0-3 per hpf (0-3); Squamous Epithelial Cell,Urine Moderate per lpf (None-Few); WBC,Urine 0-3 per hpf (0-3)
[2019-02-27] MEDS: MethylPREDNISolone 40 MG/ML VIAL IVP SCH ×3 (00:08→15:28)
[2019-02-27] MEDS: Ipratropium/Albuterol Neb 3 ML IH SCH ×5 (00:18→15:36)
[2019-02-27 07:03] LABS: Basophils # 0.1 K/mcL (0.0-0.2); Basophils % 0.6 %; Hematocrit 42.3 % (37.5-50.1); INR 2.5; Immature Granulocytes % 4.1 % (0-4); Lymphocytes # 1.4 K/mcL (0.6-4.6); Lymphocytes % 14.6 %; Mean Corpuscular HGB Conc 33.1 g/dL (31.6-35.5); Mean Corpuscular Hemoglobin 29.7 pg (28.0-33.3); Mean Corpuscular Volume 89.8 fL (83.0-100.0); Mean Platelet Volume 10.2 fL (9.4-12.4); Monocytes # 0.2 K/mcL (0.0-1.3); Monocytes % 1.9 %; Neutrophils # 7.3 K/mcL (1.6-8.9); Nucleated Red Blood Cells 0.2 /100 WBC (0); Platelet Count 128 K/mcL (140-400); Prothrombin Time 28.5 Seconds (9.4-12.1); Red Blood Count 4.71 M/mcL (4.19-5.50); Red Cell Distribution Width 16.3 % (11.5-14.5); Segmented Neutrophils % 78.8 %; White Blood Count 9.3 K/mcL (4.3-11.1)
[2019-02-27 07:19] LABS: BUN/Creatinine Ratio 30 (6-26); Blood Urea Nitrogen 28 mg/dL (8-23); Calcium 8.6 mg/dL (8.6-10.3); Carbon Dioxide 22 mEq/L (23-29); Chloride 105 mEq/L (98-107); Glucose 187 mg/dL (70-105); Magnesium 2.5 mg/dL (1.6-2.6); Osmolality,Calculated 296 (280-300); Phosphorous 2.5 mg/dL (2.7-4.5); Potassium 4.5 mEq/L (3.5-5.1); Sodium 138 mEq/L (136-145); eGFR For African Americans > 60 (> 60); eGFR For Non-African Americans > 60 (> 60)
[2019-02-27] MEDS: Sennosides/Docusate Sodium TABLET PO SCH (08:07)
[2019-02-27] MEDS ORDERED: NON-FORMULARY MEDICATION 1 EACH EACH (Roflumilast [Daliresp] 500 MCG) PO SCH (09:00)
[2019-02-27] MEDS: Budesonide/Formoterol 160/4.5 1 PUFF INH IH SCH (11:22)
[2019-02-27 11:55] VITALS: BP 123/74
[2019-02-27] MEDS ORDERED: Metoprolol XL (24 HR) Succ 25 MG TAB.ER.24H PO SCH (13:32)
[2019-02-27] MEDS ORDERED: *HR* Warfarin 3 MG TABLET PO ONE (18:00)
[2019-02-27] MEDS ORDERED: Warfarin perPT PO PRN (18:00)
== END 2019-02-27 16:42 | disposition home or self-care (01) ==
LOC: 3BNU 15:06 → EMEROOARM 15:06 → 3BNU 19:55
PROVIDERS: ADMIT Internal Medicine; ATTEND Internal Medicine